=== PATIENT | female | born 1965 | race Caucasian/White ===

== ENCOUNTER 2023-03-19 07:59 | Outpatient (OUT) | payer OTHER, SELFPAY ==
--- NOTE | 2023-03-19 08:49 | US_ITS ---
[address] [address] Patient Name: FANG OBRIEN MRN: [id number] date: 1965 Sex: F Assigned Patient Location: CARD Current Patient Location: CARD Accession/Order Number: [id number] Exam Date: 03/19/2023 09:02 Report Date: 03/19/2023 10:47 At the request of: HORACIO PARKS Procedure: US carotid duplex BI EXAMINATION: US carotid duplex BI HISTORY: Paresthesia R20.2 COMPARISON: No relevant comparison available. TECHNIQUE: Duplex Doppler ultrasound analysis of carotid and vertebral arteries. . Bilateral carotid arterial duplex examination was performed using B-mode, color flow and spectral analysis. Carotid stenosis is reported according to validated velocity parameters, similar to NASCET criteria. FINDINGS: RIGHT CAROTID ARTERY: No visible stenosis or significant plaque. RIGHT VERTEBRAL: Antegrade flow. Subclavian: PSV: 111.6 cm/s EDV: 0.0 cm/s CCA: Prox: PSV: 72.1 cm/s EDV: 13.0 cm/s Mid: PSV: 73.2 cm/s EDV: 18.9 cm/s Distal: PSV: 66.8 cm/s EDV: 20.2 cm/s BULB: PSV: 73.2 cm/s EDV: 18.9 cm/s ICA: Prox: PSV: 73.2 cm/s EDV: 20.2 cm/s Mid: PSV: 131.5 cm/s EDV: 53.5 cm/s Distal: PSV: 68.8 cm/s EDV: 23.6 cm/s ECA: PSV: 106.4 cm/s EDV: 16.0 cm/s VERTEBRAL: PSV: 58.4 cm/s EDV: 22.6 cm/s ICA/CCA ratio: PSV: 2.0 EDV: 2.6 LEFT CAROTID ARTERY: No visible stenosis or significant plaque. LEFT VERTEBRAL: Antegrade flow. Subclavian: PSV: 183.6 cm/s EDV: 0.0 cm/s CCA: Prox: PSV: 87.1 cm/s EDV: 20.8 cm/s Mid: PSV: 72.5 cm/s EDV: 17.6 cm/s Distal: PSV: 90.3 cm/s EDV: 25.7 cm/s BULB: PSV: 78.9 cm/s EDV: 19.2 cm/s ICA: Prox: PSV: 64.4 cm/s EDV: 20.8 cm/s Mid: PSV: 98.3 cm/s EDV: 37.0 cm/s Distal: PSV: 88.6 cm/s EDV: 35.4 cm/s ECA: PSV: 73.5 cm/s EDV: 13.1 cm/s VERTEBRAL: PSV: 34.1 cm/s EDV: 9.2 cm/s ICA/CCA ratio: PSV: 1.1 EDV: 1.4 IMPRESSION: 1. 0-49% flow stenosis within the right and left carotid arteries. 2. No significant atherosclerotic disease. Spectral Doppler US Thresholds Stenosis (%) PSV (cm/sec) VICA/VCCA 0-49 <150 <2.5 50-69 150-225 2.5-4.0 >70 >225 >4.0 Electronically authenticated by: CHARLIE BAE Date: 03/19/2023 10:47
--- NOTE | 2023-03-19 08:53 | CA_ITS ---
Patient: FANG OBRIEN Exam Date: 03/19/2023 : 1965 Gender:F Ordering : DR HORACIO PARKS . Admission #: [id number] Family : Order #: [id number] CLICK HERE TO VIEW EXAM ECHOCARDIOGRAM REPORT PROCEDURE: CA ECHO DOPPLER COMPLETE INDICATIONS: Paresthesia COMPARISON: None. DESCRIPTION: COMPLETE ECHOCARDIOGRAM Real-time transthoracic echocardiography with 2D, M-mode, spectral and color flow Doppler performed. QUALITY: Technical quality was good. LEFT VENTRICLE: Normal chamber size. Thickened septal wall. Normal systolic function. LV EF: Normal left ventricular ejection fraction, (55%). DIASTOLIC: Normal diastolic function. ATRIAL SEPTUM: Visually appears intact. LEFT ATRIUM: Normal chamber size. RIGHT ATRIUM: Normal chamber size. RIGHT VENTRICLE: Normal chamber size. Normal right ventricular systolic function. TRICUSPID VALVE: Normal mobility and thickness. No stenosis with trivial regurgitation. No evidence of pulmonary hypertension. RVSP 24 mmHg MITRAL VALVE: Normal mobility and thickness. No evidence of mitral valve stenosis. There is no mitral annular calcification. Trivial mitral regurgitation. AORTIC VALVE: Normal trileaflet appearance. No visible sclerosis. Normal leaflet mobility. No evidence of aortic valve stenosis. No aortic regurgitation. AORTIC ROOT: Normal diameter and appearance. PULMONIC VALVE: Normal thickness and mobility. No stenosis. Trivial regurgitation. PERICARDIUM: No evidence of pericardial effusion. IVC: Collapses with inspirations. PLEURA: CONCLUSION: 1. Normal ventricular systolic function. LVEF is 55%. 2. Normal diastolic function. 3. No significant valvular dysfunction. 4. Normal right-sided pressures. Adult Echocardiography Procedure Report Left Ventricle LVEDD (3.7 - 5.6 cm): 4.41 cm, 4.44 cm LVESD (2.2 - 4.0 cm): 2.74 cm LVIVS thickness (0.6 - 1.2 cm): 1.04 cm, 1.06 cm LVPW thickness (0.5 - 1.0 cm): 0.86 cm e': 0.13 m/s E - e': 5.78 LVOT Max Gradient: 4.97 mm[Hg] LVOT Area (cm2): 1.11 m/s Peak Velocity (LVOT): 1.11 m/s LVOT Diameter 2.10 cm Left Atrium LA Volume Index (2D A2C): 22.68 ml/m2 Left Atrium Systolic Dimension: 3.48 cm Mitral Valve MV E to A Ratio: 1.53, 1.34 Mitral Valve A-Wave Peak Velocity: 0.51 m/s Mitral Valve E-Wave Peak Velocity: 0.74 m/s Right Ventricle Aorta AO Root Diam: 3.41 cm Ascending Ao Diam: 3.09 cm Aortic Valve AoV Area (Peak Sarwat): 3.51 cm2, 3.51 cm2 Peak Velocity(Antegrade Flow): 1.10 m/s Peak Gradient(Antegrade Flow): 4.85 mm[Hg] Tricuspid Valve Peak Velocity (Regurgitant Flow): 2.26 m/s, 2.29 m/s Pulmonic Valve Peak Velocity: 0.96 m/s Peak Gradient: 3.67 mm[Hg], 3.67 mm[Hg] Right Atrium Right Atrium Systolic Pressure: 33.29 ml, 33.29 ml Dictated by: Yonas Zavala M.D. on 03/20/2023 at 18:35 Approved by: Yonas Zavala M.D. on 03/20/2023 at 18:37
--- NOTE | 2023-03-19 09:30 | MR_ITS ---
The [address] [address] Patient Name: FANG OBRIEN MRN: [id number] date: 1965 Sex: F Assigned Patient Location: CARD Current Patient Location: CARD Accession/Order Number: [id number] Exam Date: 03/19/2023 09:30 Report Date: 03/19/2023 17:17 At the request of: HORACIO PARKS Procedure: MR head/brain wo/w con EXAM: MR head/brain wo/w con HISTORY: Paresthesia R20.2 COMPARISON: None. TECHNIQUE: Multiplanar, multisequence MR imaging of the head was performed prior to and following administration of 16 mL Dotarem contrast intravenously. FINDINGS: No restricted diffusion. No acute hemorrhage, mass effect, midline shift or extra-axial fluid collection. No ventriculomegaly. Expected flow voids are noted within the intracranial internal carotid, vertebral and basilar arteries. The cerebellopontine angles and internal auditory canals are unremarkable. The pituitary gland and midline structures are unremarkable. Bone marrow signal is within normal limits. The orbits and globes are unremarkable. Expected signal voids are seen within the paranasal sinuses and mastoid air cells. There is a solitary punctate focus of increased FLAIR signal within the inferior left frontal subcortical white matter. No periventricular or subcortical white matter signal abnormality. No abnormal enhancement. IMPRESSION: 1. Solitary punctate focus of increased FLAIR signal within the inferior left frontal subcortical white matter, compatible with small vessel ischemic changes. No periventricular white matter signal abnormalities or abnormal enhancement to suggest a demyelinating disorder. 2. No acute infarct or mass effect. Electronically authenticated by: BARBARA CORREIA Date: 03/19/2023 17:17
== END 2023-03-19 08:00 | disposition home or self-care (01) ==
LOC: CARD 07:59
PROVIDERS: PCP Family Medicine; Visit Provider Family Medicine
DX: R20.2 Paresthesia of skin (principal); Z82.0 Family history of epilepsy and other diseases of the nervous system; G93.9 Disorder of brain, unspecified; I65.23 Occlusion and stenosis of bilateral carotid arteries
CPT/HCPCS: 70553; 93306; 93880; A9575

== ENCOUNTER 2023-04-30 09:04 | Outpatient (OUT) | payer OTHER, SELFPAY ==
--- NOTE | 2023-04-30 09:11 | MR_ITS ---
The [address] [address] Patient Name: FANG OBRIEN MRN: [facility]:[id number] date: 1965 Sex: F Assigned Patient Location: MRI Current Patient Location: MRI Accession/Order Number: [id number] Exam Date: 04/30/2023 09:50 Report Date: 04/30/2023 12:53 At the request of: HORACIO PARKS Procedure: MR cervical spine wo/w con EXAM: MR cervical spine wo/w con, MR thoracic spine wo con HISTORY: Paresthesia R20.2 COMPARISON: None Technique: Sagittal T1-weighted, sagittal T2-weighted, sagittal diffusion weighted, axial T2-weighted, and axial T2* gradient echo images of the cervical spine were obtained without intravenous contrast. Following intravenous administration of gadolinium, axial and sagittal T1-weighted images with fat saturation were also obtained. Sagittal T2 and T1-weighted as well as STIR images and axial T1 and T2-weighted images of the thoracic spine performed without IV contrast. Contrast: 16 cc Dotarem for the cervical spine Findings: There is reversal of the cervical lordosis. Trace, grade 1 retrolisthesis of C6 seen on C7. There is significant disc height narrowing throughout the cervical spine. There is normal signal within and normal contour of the cervical spinal cord. There is no abnormal contrast enhancement within the cervical spinal cord, thecal sac or vertebral column. The findings on a level by level basis are as follows: C2-3: No spinal canal or neural foraminal narrowing. Spinal canal measures 11 mm in diameter. C3-4: Uncovertebral arthropathy with moderate bilateral neural foraminal stenosis. Disc bulging with slight spinal canal stenosis, that measures 9.8 mm in diameter. C4-5: Uncovertebral and facet arthropathy with disc bulge. Severe right and moderate left neural foraminal stenosis. Mild spinal canal stenosis, measuring 8.5 mm in diameter. C5-6: Uncovertebral and facet arthropathy, with eccentric right disc bulge and severe right with moderate left neural foraminal stenosis. Spinal canal stenosis is moderate measuring 6.6 mm in diameter. C6-7: Uncovertebral arthropathy with moderate bilateral neural foraminal stenosis and mild spinal canal stenosis measuring 7.3 mm in diameter. C7-T1: No spinal canal or neural foraminal narrowing. No abnormality of the paraspinous soft tissues. Thoracic spine, unenhanced MR images performed, without utilized fracture or subluxation. There is straightening of the kyphotic curve. On the right at T1-2 there is a 6 mm Tarlov/perineural cyst in the extraforaminal zone. On the right at T7-8, there is a small meningeal outpouching in the neural foramen, extending a length of 6 mm. Minimal multilevel marginal osteophytes throughout the vertebral bodies. Otherwise no significant neural foraminal or spinal canal stenosis. MR/MR cervical spine wo/w con Impression: 1. No abnormal enhancement in the spinal cord, thecal sac or cervical vertebrae. 2. Multilevel degenerative changes of the cervical spine, as above, most pronounced at C5-6 where there is moderate spinal canal stenosis, and there are severe degrees of neural foraminal stenosis, especially on the right at C4-5 and C5-6. 3. 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 Otherwise no substantial neural foraminal or spinal canal stenosis throughout the thoracic spine. Electronically authenticated by: RAISSA MELTON Date: 04/30/2023 12:53
--- NOTE | 2023-04-30 09:50 | MR_ITS ---
The [address] [address] Patient Name: FANG OBRIEN MRN: [facility]:[id number] date: 1965 Sex: F Assigned Patient Location: MRI Current Patient Location: MRI Accession/Order Number: [id number] Exam Date: 04/30/2023 09:50 Report Date: 04/30/2023 12:53 At the request of: HORACIO PARKS Procedure: MR thoracic spine wo con EXAM: MR cervical spine wo/w con, MR thoracic spine wo con HISTORY: Paresthesia R20.2 COMPARISON: None Technique: Sagittal T1-weighted, sagittal T2-weighted, sagittal diffusion weighted, axial T2-weighted, and axial T2* gradient echo images of the cervical spine were obtained without intravenous contrast. Following intravenous administration of gadolinium, axial and sagittal T1-weighted images with fat saturation were also obtained. Sagittal T2 and T1-weighted as well as STIR images and axial T1 and T2-weighted images of the thoracic spine performed without IV contrast. Contrast: 16 cc Dotarem for the cervical spine Findings: There is reversal of the cervical lordosis. Trace, grade 1 retrolisthesis of C6 seen on C7. There is significant disc height narrowing throughout the cervical spine. There is normal signal within and normal contour of the cervical spinal cord. There is no abnormal contrast enhancement within the cervical spinal cord, thecal sac or vertebral column. The findings on a level by level basis are as follows: C2-3: No spinal canal or neural foraminal narrowing. Spinal canal measures 11 mm in diameter. C3-4: Uncovertebral arthropathy with moderate bilateral neural foraminal stenosis. Disc bulging with slight spinal canal stenosis, that measures 9.8 mm in diameter. C4-5: Uncovertebral and facet arthropathy with disc bulge. Severe right and moderate left neural foraminal stenosis. Mild spinal canal stenosis, measuring 8.5 mm in diameter. C5-6: Uncovertebral and facet arthropathy, with eccentric right disc bulge and severe right with moderate left neural foraminal stenosis. Spinal canal stenosis is moderate measuring 6.6 mm in diameter. C6-7: Uncovertebral arthropathy with moderate bilateral neural foraminal stenosis and mild spinal canal stenosis measuring 7.3 mm in diameter. C7-T1: No spinal canal or neural foraminal narrowing. No abnormality of the paraspinous soft tissues. Thoracic spine, unenhanced MR images performed, without utilized fracture or subluxation. There is straightening of the kyphotic curve. On the right at T1-2 there is a 6 mm Tarlov/perineural cyst in the extraforaminal zone. On the right at T7-8, there is a small meningeal outpouching in the neural foramen, extending a length of 6 mm. Minimal multilevel marginal osteophytes throughout the vertebral bodies. Otherwise no significant neural foraminal or spinal canal stenosis. MR/MR thoracic spine wo con Impression: 1. No abnormal enhancement in the spinal cord, thecal sac or cervical vertebrae. 2. Multilevel degenerative changes of the cervical spine, as above, most pronounced at C5-6 where there is moderate spinal canal stenosis, and there are severe degrees of neural foraminal stenosis, especially on the right at C4-5 and C5-6. 3. 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 Otherwise no substantial neural foraminal or spinal canal stenosis throughout the thoracic spine. Electronically authenticated by: RAISSA MELTON Date: 04/30/2023 12:53
== END 2023-04-30 09:05 | disposition home or self-care (01) ==
PROVIDERS: PCP Family Medicine; Visit Provider Family Medicine
DX: R20.2 Paresthesia of skin (principal); M48.02 Spinal stenosis, cervical region
CPT/HCPCS: 72146; 72156; A9575

== ENCOUNTER 2023-06-15 07:51 | Outpatient (OUT) | payer OTHER, SELFPAY ==
--- NOTE | 2023-06-15 07:57 | MM_ITS ---
Patient: FANG OBRIEN Exam Date: 06/15/2023 : 1965 Gender:F Ordering : DR TRICIA VELASQUEZ . Admission #: [id number] Family : DR All San . Order #: [id number] CLICK HERE TO VIEW EXAM RADIOLOGY REPORT PROCEDURE: MM TOMOSYNTHESIS SCREENING BI COMPARISON: MG MAMM SCREEN MIGUEL W CAD, 06/06/2021. MG MAMM SCREEN 3D MIGUEL CAD, 06/13/2022. INDICATIONS: Screening Calculator Name NCI Breast Cancer Risk Assessment Tool 5 Year Breast Cancer Risk 1.20% Lifetime Breast Cancer Risk 8.30% Personal Breast Cancer No Personal Ovarian Cancer No Treatments None Family Cancers None LOCATION: [facility] BREAST COMPOSITION: Heterogeneously dense,which may obscure small masses. FINDINGS: DIAGNOSTIC CATEGORY 2--BENIGN FINDING. NO CHANGE FROM COMPARISON. Scattered benign-appearing nodules are present. Scattered benign-appearing calcifications are present. Scattered benign-appearing lymph nodes are present. RIGHT BREAST: No significant suspicious finding. LEFT BREAST: No significant suspicious finding. RECOMMENDATIONS: ROUTINE MAMMOGRAM AND CLINICAL EVALUATION IN 12 MONTHS. PLEASE NOTE: A NORMAL MAMMOGRAM DOES NOT EXCLUDE THE POSSIBILITY OF BREAST CANCER. A CLINICALLY SUSPICIOUS PALPABLE LUMP SHOULD BE BIOPSIED. Dictated by: Arturo Martinez MD on 06/15/2023 at 12:52 Approved by: Arturo Martinez MD on 06/15/2023 at 12:53
== END 2023-06-15 07:52 | disposition home or self-care (01) ==
LOC: MAMMO 07:51
PROVIDERS: PCP Family Medicine; Visit Provider Obstetrics & Gynecology
DX: Z12.31 Encounter for screening mammogram for malignant neoplasm of breast (principal)
CPT/HCPCS: 77063; 77067

== ENCOUNTER 2023-06-22 20:46 | Outpatient (REF) | payer OTHER, SELFPAY ==
[2023-06-27 07:09] LABS: Age Gdln ACOG Testing Note (.); HPV Aptima Negative (Negative); IGP, Aptima HPV, rfx 16/18,45 Note (.)
== END 2023-06-22 20:47 | disposition home or self-care (01) ==
LOC: LAB 20:46
PROVIDERS: PCP Family Medicine; Visit Provider Obstetrics & Gynecology
DX: Z12.4 Encounter for screening for malignant neoplasm of cervix (principal)
CPT/HCPCS: 87624; G0145

== ENCOUNTER 2023-07-15 07:01 | Outpatient (OUT) | payer OTHER, SELFPAY ==
--- NOTE | 2023-07-15 | XR_ITS ---
The [address] [address] Patient Name: FANG OBRIEN MRN: [facility]:[id number] date: 1965 Sex: F Assigned Patient Location: MRI Current Patient Location: MRI Accession/Order Number: [id number] Exam Date: 07/15/2023 08:10 Report Date: 07/15/2023 09:44 At the request of: NON-STAFF PHYSICIAN Procedure: XR lumbar spine min 4V EXAMINATION: XR lumbar spine min 4V HISTORY: Spinal stenosis of lumbar region M48.062 COMPARISON: No relevant comparison available. FINDINGS: BONES: Neutral projection demonstrates normal alignment with no acute fracture or spondylolisthesis. Moderate diffuse degenerative spondylosis and facet arthropathy. No transient spondylolisthesis with flexion or extension DISC SPACES: Moderate to severe multilevel disc space narrowing most significant L4-5 PARASPINOUS: Negative. No paraspinous abnormality is seen. OTHER: Negative. XR/XR lumbar spine min 4V IMPRESSION: Moderate to severe degenerative changes No dynamic instability Electronically authenticated by: BARBARA LOWERY Date: 07/15/2023 09:44
--- NOTE | 2023-07-15 07:16 | MR_ITS ---
[address] [address] Patient Name: FANG OBRIEN MRN: [id number] date: 1965 Sex: F Assigned Patient Location: MRI Current Patient Location: MRI Accession/Order Number: [id number] Exam Date: 07/15/2023 07:16 Report Date: 07/15/2023 08:27 At the request of: NON-STAFF PHYSICIAN Procedure: MR lumbar spine wo con EXAMINATION: MR lumbar spine wo con HISTORY: spinal stenosis of lumbar region with neurogenic claudicatio COMPARISON: No relevant comparison available. TECHNIQUE: A variety of imaging planes and parameters were utilized for visualization of suspected pathology. FINDINGS: For the purposes of numbering, sagittal T2 image # 8 extends from the T11 vertebral body superiorly to the S2-S3 level inferiorly. PARASPINAL AREA: Normal with no visible mass. BONES: Mild grade 1 retrolisthesis L2-L3, L3-L4 and L4-5. Moderate degenerative spondylosis. Area of signal abnormality anterior inferior L2 and anterior superior L3 vertebral bodies likely degenerative vein CORD/CAUDA EQUINA: Normal caliber, contour, and signal intensity. DISC LEVELS: 12-L1: No significant disc/facet abnormality, spinal stenosis, or foraminal stenosis. L1-L2: No significant disc/facet abnormality, spinal stenosis, or foraminal stenosis. L2-L3: Moderate disc space narrowing and disc desiccation. Posterior broad-based disc/osteophyte complex. No definite central or foraminal stenosis L3-L4: Mild to moderate disc space narrowing and disc desiccation. Mild diffuse disc/osteophyte complex. No central or foraminal stenosis L4-L5: Severe disc space narrowing with partial fusion. Mild diffuse disc/osteophyte complex. No central or left foraminal stenosis. Moderate narrowing of the right neural foramen L5-S1: No significant disc/facet abnormality, spinal stenosis, or foraminal stenosis. MR/MR lumbar spine wo con IMPRESSION: Moderate right foraminal stenosis at L4-L5 Electronically authenticated by: BARBARA LOWERY Date: 07/15/2023 08:27
--- NOTE | 2023-07-15 07:16 | XR_ITS ---
The [address] [address] Patient Name: FANG OBRIEN MRN: [id number] date: 1965 Sex: F Assigned Patient Location: MRI Current Patient Location: MRI Accession/Order Number: [id number] Exam Date: 07/15/2023 08:10 Report Date: 07/15/2023 09:45 At the request of: NON-STAFF PHYSICIAN Procedure: XR cervical spine 5V EXAMINATION: XR cervical spine 5V HISTORY: spinal stenosis in cervical region COMPARISON: No relevant comparison available. FINDINGS: BONES: Neutral projection demonstrates loss of normal cervical lordosis. Moderate diffuse degenerative spondylosis and facet osteoarthropathy most significant C5-C7 DISC SPACES: Moderate multilevel disc space narrowing most significant C5-C7 PARASPINOUS: Negative. No paraspinous abnormality is seen. OTHER: No transient anterolisthesis with flexion or extension XR/XR cervical spine 5V IMPRESSION: Moderate degenerative changes with loss of cervical lordosis No dynamic instability Electronically authenticated by: BARBARA LOWERY Date: 07/15/2023 09:45
== END 2023-07-15 07:02 | disposition home or self-care (01) ==
LOC: MRI 07:01
PROVIDERS: PCP Family Medicine
DX: M48.02 Spinal stenosis, cervical region (principal); M48.062 Spinal stenosis, lumbar region with neurogenic claudication
CPT/HCPCS: 72050; 72110; 72148

== ENCOUNTER 2024-06-22 08:01 | Outpatient (OUT) | payer SELFPAY ==
--- OUTSIDE RECORDS SUMMARY | 2024-06-22 08:05 | XMS_ITS | CCD ---
Author Organization [facility] Care Team Providers Care Vest Baster Name Role Phone Horacio San Primary Care Physician RON ., DR CLARKE Consulting Unavailable RON ., DR CLARKE Attending Unavailable RON ., DR CLARKE Admitting Unavailable HOY ., DR LEONARD Primary Care Unavailable HOY ., DR LEONARD Attending Unavailable HOY ., DR LEONARD Consulting Unavailable HOY ., DR LEONARD Primary Care Unavailable HOY ., DR LEONARD Admitting Unavailable HOY ., DR LEONARD Admitting Unavailable HOY ., DR LEONARD Attending Unavailable HOY ., DR LEONARD Consulting Unavailable HOY ., DR LEONARD Primary Care Unavailable NILL ., DR REYES Admitting Unavailable HOY ., DR LEONARD Primary Care Unavailable NILL ., DR REYES Attending Unavailable NILL ., DR REYES Consulting Unavailable RON ., DR CLARKE Admitting Unavailable IRVING, DR BARBARA Lloyd Consulting Unavailable RON ., DR CLARKE Attending Unavailable HOY ., DR LEONARD Primary Care Unavailable RON ., DR CLARKE Consulting Unavailable Barbara Atkins Consulting Unavailable RON ., DR CLARKE Consulting Unavailable RON ., DR CLARKE Admitting Unavailable RON ., DR CLARKE Attending Unavailable HOY ., DR LEONARD Primary Care Unavailable NILL, Eric R Attending Unavailable NILL, Eric Candelaria Attending Unavailable NILL, Eric Candelaria Attending Unavailable Allergies Allergy Classification Reported Allergen(s) Allergy Type Date of Onset Reaction(s) Facility (3 sources) Penicillin; 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: [penicillin] Drug Allergy Itching (finding) General Surgery [place] Medications Current Medications Medication Drug Class(es) Dates Sig (Normalized) Sig (Original) aspirin 81 mg delayed release oral tablet (1 source) Platelet Aggregation Inhibitor, Nonsteroidal Anti-inflammatory Drug Start: 10-28-2022 take 1 tablet by mouth once daily aspirin 81 mg Oral EC Tab 81 mg = 1 tab(s), Oral, Daily, Refills(s) 0 Start Date: 10/28/22 Status: Ordered diclofenac sodium 75 mg delayed release oral tablet (1 source) Nonsteroidal Anti-inflammatory Drug Start: 10-22-2022 take 1 tablet by mouth twice daily diclofenac sodium 75 mg Oral EC Tab 75 mg = 1 tab(s), Oral, BID, Refills(s) 0 Start Date: 10/22/22 Status: Ordered Multi Vitamins oral tablet (1 source) Start: 10-28-2022 take 1 tablet by mouth once daily Multi Vitamins oral tablet 1 tab(s), Oral, Daily, Refill(s) 0 Start Date: 10/28/22 Status: Ordered Problems Active Problems Problem Classification Problem Date Documented Da te Episodic/Chronic Abdominal hernia (1 source) Umbilical hernia 10-22-2022 Episodic Anxiety disorders (2 sources) Anxiety; 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: [Anxiety disorder, unspecified] Onset: 11-24-2022 10-22-2022 Chronic Deficiency and other anemia (1 source) Anemia, unspecified; 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: [ANEMIA UNSPECIFIED] Onset: 12-04-2022 Episodic Diabetes mellitus without complication (1 source) Hyperglycemia, unspecified; 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: [HYPERGLYCEMIA UNSPECIFIED] Onset: 12-04-2022 Episodic Malaise and fatigue (4 sources) Other fatigue; 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: [OTHER FATIGUE] Onset: 10-13-2022 Episodic Mood disorders (1 source) Depressive disorder 10-22-2022 Chronic Mood disorders (1 source) Mood disorders; 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: [DEPRESSION UNSPECIFIED] Onset: 11-24-2022 Osteoporosis (1 source) Age-related osteoporosis without current pathological fracture; 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: [AGE-REL OSTEOPOR W/O CURR PATH FX] Onset: 06-16-2022 Chronic Other aftercare (1 source) 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; 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: [CUSTODIAL CURRENT USE OF ASPIRIN] Onset: 11-24-2022 Episodic Other aftercare (1 source) Other senior care (current) drug therapy; 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: [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] Onset: 11-24-2022 Episodic Other and unspecified benign neoplasm (5 sources) Benign lipomatous neoplasm of skin and subcutaneous tissue of right leg; 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: [Benign lipomatous neoplasm of skin and/or subcutaneous tissue of right lower limb] Onset: 10-28-2022 Episodic Other and unspecified benign neoplasm (1 source) Lipoma of thigh 10-28-2022 Episodic Other nutritional; endocrine; and metabolic disorders (1 source) Overweight in adulthood with body mass index of 25 or more but less than 30 10-28-2022 Episodic Other nutritional; endocrine; and metabolic disorders (1 source) Overweight; 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: [OVERWEIGHT] Onset: 12-04-2022 Episodic Other screening for suspected conditions (not mental disorders or infectious disease) (12 sources) Encounter for screening for malignant neoplasm of rectum; 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: [Encounter for screening for malignant neoplasm of cervix] Onset: 06-13-2022 Episodic Residual codes; unclassified (1 source) Acquired absence of both cervix and uterus; 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: [ACQUIRED ABSENCE BOTH CERVIX AND UTERUS] Onset: 11-24-2022 Episodic Unclassified (3 sources) ACUTE CANDIDIASIS VULVA AND VAGINA; 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: [ACUTE CANDIDIASIS VULVA AND VAGINA] Onset: 06-26-2022 Past or Other Problems Problem Classification Problem Date Documented Date Episodic/Chronic Immunizations and screening for infectious disease (1 source) Encounter for screening for human papillomavirus (HPV); 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: [ENC SCREENING HUMAN PAPILLOMAVIRUS] Onset: 06-18-2022 Episodic Residual codes; unclassified (1 source) Asymptomatic menopausal state; 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: [ASYMPTOMATIC MENOPAUSAL STATE] Onset: 06-16-2022 Episodic Unclassified (1 source) ACUTE CANDIDIASIS VULVA AND VAGINA; 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: [ACUTE CANDIDIASIS VULVA AND VAGINA] Onset: 06-25-2022 Results Test Name Value Interpretation Reference Range Facility Ambulatory Visit Summaryon 0 11-26-2022 Ambulatory Visit Summary FANG OBRIEN :1965 Visit Date:11/26/2022 Ambulatory Visit Instructions Your Care Team Attending Physician - LISBETH TERESA, Eric Candelaria Primary Care Physician - Horacio San MD This Is Your Medications List aspirin (aspirin 81 mg Oral EC Tab) diclofenac (diclofenac sodium 75 mg Oral EC Tab) multivitamin (Multi Vitamins oral tablet) Procedures Performed Excision of lipoma (11/19/2022), Abdominal hysterectomy, Colonoscopy, Repair of umbilical hernia, Tonsillectomy and adenoidectomy. Medications What How Much When Instructions Unchanged aspirin (aspirin 81 mg Oral EC Tab) 1 Tablets By Mouth Every day Unchanged diclofenac (diclofenac sodium 75 mg Oral EC Tab) 1 Tablets By Mouth 2 times a day Unchanged multivitamin (Multi Vitamins oral tablet) 1 Tablets By Mouth Every day Allergies penicillin (Itching) Problems Ongoing - Any problem that you are currently receiving treatment for. Anxiety BMI 26.0-26.9,adult Depression Lipoma of right thigh Umbilical hernia Normal [facility] General Surgery Office/Clini c Noteon 11-26-2022 General Surgery Office/Clinic Note Chief Complaint post operative follow up HPI Staff 7 day post operative follow up post excisional biopsy right lateral thigh lipoma. Denies discomfort, no use of pain medication. Denies bleeding, drainage or significant bruising. History of Present Illness 1 week s/p excisional biopsy right lateral thigh lipoma, doing well; mild soreness, no drainage; pathology consistent with lipoma. Review of Systems ROS - Provider Constitutional: no fever, no sweats, no weight loss. Eyes: no glasses, no blurred vision, no visual loss. ENMT: no dentures, no hoarseness, no swallowing difficulties, no hearing loss, no ear infection(s), no nose bleeds. Cardiovascular: normal blood pressure, no chest pain, regular heartbeat, no heart murmur. Respiratory: no shortness of breath, no cough, no asthma, no wheezing. Gastrointestinal: no nausea, no vomiting, no diarrhea, no constipation, no blood in stool, no change in bowel habits, no abdominal pain, no hepatitis. Genitourinary: no kidney stones, no urine infection, no dysuria. Musculoskeletal: no pain, no weakness. Skin: no changing moles, no rash, no skin lumps. Neurologic: no seizures, no epilepsy, no headache. Psychiatric: no emotional or psychiatric problem. Heme/Lymph: no bleeding problems, no anemia, no blood clots, no transfusions. Allergy/Immunologic: no swollen lymph nodes/glands, no IV drug abuse. Other: Additional ROS info: Except as noted in the above Review of Systems and in the History of Present Illness, all other systems have been reviewed and are negative or noncontributory. Physical Exam skin: incision healing well, no erythema or drainage, minimal resolving ecchymosis. Assessment/Plan 1. Lipoma of right thigh (D17.23: Benign lipomatous neoplasm of skin and subcutaneous tissue of right leg) doing well; call with problems/questions. Follow-up No qualifying data available Problem List/Past Medical History Ongoing Anxiety BMI 26.0-26.9,adult Depression Lipoma of right thigh Umbilical hernia Historical No qualifying data Procedure/Surgical History Excision of lipoma (11/19/2022), Abdominal hysterectomy, Colonoscopy, Repair of umbilical hernia, Tonsillectomy and adenoidectomy. Medications aspirin 81 mg Oral EC Tab, 81 mg= 1 tab(s), Oral, Daily diclofenac sodium 75 mg Oral EC Tab, 75 mg= 1 tab(s), Oral, BID Multi Vitamins oral tablet, 1 tab(s), Oral, Daily Allergies penicillin (Itching) Social History Alcohol - Denies Alcohol Use, 10/28/2022 Substance Abuse - Denies Substance Abuse, 10/28/2022 Tobacco Never (less than 100 in lifetime) Tobacco Use:. Never Smokeless Tobacco Use:., 10/28/2022 Family History Heart disease: Father. Multiple sclerosis: Mother and Sister. Immunizations Vaccine Date Status Comments influenza virus vaccine, inactivated 08/08/2022 Recorded SARS-CoV-2 (COVID-19) mRNA-1273 vaccine 08/17/2021 Recorded 2022-10-22: TPV50 SARS-CoV-2 (COVID-19) mRNA-1273 vaccine 12/21/2020 Recorded SARS-CoV-2 (COVID-19) mRNA-1273 vaccine 11/23/2020 Recorded Normal [facility] Comment on above: Result Comment: Elec tronically Signed By: LISBETH TERESA, Eric Fierro\Date and Time Signed: 11/26/22 16:51 EDT Pathology Noteon 11-24-2022 Pathology Note [id number] .00CD:127 Normal [facility] Operative Reporton Operative Report [id number] .00CD:127 Normal [facility] Consent for Procedure/Surger yon 10-29-2022 Consent for Procedure/Surgery [id number] .00CD:127 Normal [facility] Facesheeton 10-29-2022 Facesheet [id number] .00CD:127 Normal [facility] Ambulatory Visit Summaryon 0 10-28-2022 Ambulatory Visit Summary FANG OBRIEN :1965 Visit Date:10/28/2022 Ambulatory Visit Instructions Your Diagnosis Lipoma of right thigh Your Care Team Attending Physician - LISBETH TERESA, Eric Candelaria Primary Care Physician - Horacio San MD This Is Your Medications List Contact prescribing physician if questions or concerns aspirin (aspirin 81 mg Oral EC Tab) diclofenac (diclofenac sodium 75 mg Oral EC Tab) multivitamin (Multi Vitamins oral tablet) Procedures Performed Abdominal hysterectomy, Colonoscopy, Repair of umbilical hernia, Tonsillectomy and adenoidectomy. Discharge Vitals Heart Rate (Peripheral) 70 Respiratory Rate 16 Blood Pressure 122/86 Height 170.18 cm Height 67 in Weight 77.5 kg Weight 170.5 lb BMI 26.76 Medications What How Much When Instructions Unchanged aspirin (aspirin 81 mg Oral EC Tab) 1 Tablets By Mouth Every day Contact prescribing physician if questions or concerns Unchanged diclofenac (diclofenac sodium 75 mg Oral EC Tab) 1 Tablets By Mouth 2 times a day Contact prescribing physician if questions or concerns Unchanged multivitamin (Multi Vitamins oral tablet) 1 Tablets By Mouth Every day Contact prescribing physician if questions or concerns Allergies penicillin (Itching) Problems Ongoing - Any problem that you are currently receiving treatment for. Anxiety BMI 26.0-26.9,adult Depression Lipoma of right thigh Umbilical hernia Normal [facility] Physician Referralon 023 Physician Referral [id number] .[id number]:127 Normal [facility] INSULINon 10-14-2022 Insulin 6.7 uIU/mL Normal 2.6-24.9 [facility] Comment on above: Performed By: #### I NSULIN #### [facility] [address], [place] [address] Dr. Jay MORGAN BLD IMMUNO SCREENon 09-16 OCCULT BLOOD Negative Normal NEGATIVE [facility] Comment on above: Performed By: #### O BSCRN ####[facility] [address] [place] [address]Dr. Jay Sebastian CBC AUTO DIFFon 10-13-2022 BASO # 0.0 103/ul Normal 0.0-0.1 [facility] Comment on above: Performed By: #### C BC ####[facility] [address] [place], [place] [address]Dr. Conniesabas Cortes Basophils/100 WBC (Bld) 1.0 % Normal 0.2-2.0 [facility] Comment on above: Performed By: #### C BC ####[facility] [address] [place], [place] [address]Dr. Jay Cortes EO # 0.1 103/ul Normal 0.0-0.7 [facility] Comment on above: Performed By: #### C BC ####[facility] [address] [place], [place] [address]Dr. Jay Cortes Eosinophils/100 WBC (Bld) 2.3 % Normal 0.9-7.0 [facility] Comment on above: Performed By: #### C BC ####[facility] [address] [place], [place] [address]Dr. Conniesabas Cortes Erythrocyte distribution width (RBC) [Ratio] 12.7 % Normal 11.0-15.0 [facility] Comment on above: Performed By: #### C BC ####[facility] [address] [place], [place] [address]Dr. Jay Cortes Hematocrit (Bld) [Volume fraction] 39.9 % Normal 36.0-48.0 [facility] Comment on above: Performed By: #### C BC ####[facility] [address] [place], [place] [address]Dr. Jay Cortes Hemoglobin (Bld) [Mass/Vol] 13.6 g/dL Normal 12.0-16.0 [facility] Comment on above: Performed By: #### C BC ####[facility] [address] [place], [place] [address]Dr. Jay Cortes IG # 0.01 10e3/ul Normal 0.00-0.03 [facility] Comment on above: Performed By: #### C BC ####[facility] [address] [place] [id number]. Jay Cortes IG % 0.3 % Normal 0.0-0.5 [facility] Comment on above: Performed By: #### C BC ####[facility] [address] [place] [id number]. Jay Cortes LYMPH # 1.4 103/ul Normal 1.2-3.8 [facility] Comment on above: Performed By: #### C BC ####[facility] [address] [place] [id number]. Jay Cortes Lymphocytes/100 WBC (Bld) 34.3 % Normal 20.5-60.0 [facility] Comment on above: Performed By: #### C BC ####[facility] [address] [place] [address]Dr. Jay Cortes MANUAL DIFF REQ NO Normal [facility] Comment on above: Performed By: #### C BC ####[facility] [address] [place] [id number]. Jay Cortes MCH (RBC) [Entitic mass] 30.6 pg Normal 26.7-34.0 [facility] Comment on above: Performed By: #### C BC ####[facility] [address] [place] [id number]. Jay Cortes MCHC (RBC) [Mass/Vol] 34.1 g/dL Normal 29.9-35.2 [facility] Comment on above: Performed By: #### C BC ####[facility] [address] [place] [id number]. Jay Cortes MCV (RBC) [Entitic vol] 89.7 fL Normal 81.0-99.0 [facility] Comment on above: Performed By: #### C BC ####[facility] [address] [place] [id number]. Jay Sebastian MONO # 0.3 103/ul Normal 0.3-0.8 [facility] Comment on above: Performed By: #### C BC ####[facility] [address] [place] [id number]. Jay Cortes Monocytes/100 WBC (Bld) 6.3 % Normal 1.7-12.0 [facility] Comment on above: Performed By: #### C BC ####[facility] [address] [place] [phone]. Jay Cortes NEUT # 2.2 103/ul Normal 1.4-6.5 [facility] Comment on above: Performed By: #### C BC ####[facility] [address] [place] [id number]. Jay Cortes Neutrophils/100 WBC (Bld) 55.8 % Normal 43.0-75.0 [facility] Comment on above: Performed By: #### C BC ####[facility] [address] [place] [phone]. Jay Cortes Platelet mean volume (Bld) [Entitic vol] 10.0 fL Normal 9.5-13.5 [facility] Comment on above: Performed By: #### C BC ####[facility] [address] [place] [phone]. Jay Cortes PLT 265 103/ul Normal 150-450 [facility] Comment on above: Performed By: #### C BC ####[facility] [address] [place] [phone]. Jay Cotres RBC 4.45 106/ul Normal 4.20-5.40 [facility] Comment on above: Performed By: #### C BC ####[facility] [address] [place], [place] [address]Dr. Jay Cortes WBC 4.0 103/ul Normal 4.0-11.0 [facility] Comment on above: Performed By: #### C BC ####[facility] [address] [place], [place] [address]Dr. Jay Cortes FREE THYROXINE INDEX T7on FTI 2.49 Normal 1.30-4.50 [facility] Comment on above: Performed By: #### C MP, LIPID, TSH, T7 #### [facility] [address], [place] [address] Dr. Jay Cortes T3U 35.0 % Normal 30.0-39.0 [facility] Comment on above: Performed By: #### C MP, LIPID, TSH, T7 #### [facility] [address] [place] [address] [address] Jay Cortes T4 [Mass/Vol] 7.10 ug/dL Normal 4.80-13.90 [facility] Comment on above: Performed By: #### C MP, LIPID, TSH, T7 #### [facility] [address] [place] [address] [address] Jay Cortes GLYCOHEMOGLOBIN A1Con 2022 ADA RECOMMENDATION SEE BELOW Normal [facility] Comment on above: Result Comment: ADA RECOMMENDED LIMIT 4.0 - 6.0 ADA THERAPEUTIC TARGET < 7.0 ACTION SUGGESTED > 7.0 Performed By: #### A 1C #### [facility] [address] [address] [address] Jay Cortes Glucose [Mass/Vol] 105 mg/dL Normal [facility] Comment on above: Performed By: #### A 1C #### [facility] [address] [address] [address] Jay Cortes HbA1c (Bld) [Mass fraction] 5.3 % Normal 4.5-6.2 [facility] Comment on above: Performed By: #### A 1C #### [facility] [address] [address] [address] Jay Cortes IRONon 10-13-2022 Iron [Mass/Vol] 90.0 ug/dL Normal 50.0-170.0 [facility] Comment on above: Performed By: #### I ALANA ####[facility] [address] [place] [address]Dr. Jay Cortes LIPID PROFILEon 10-13-2022 CHOL-HDL RATIO NORM SEE BELOW Normal [facility] Comment on above: Result Comment: 3.3 - 4.4 LOW RISK 4.4 - 7.1 AVERAGE RISK 7.1 - 11.0 MODERATE RISK >11.0 HIGH RISK Performed By: #### C MP, LIPID, TSH, T7 #### [facility] [address] [address] [address] Jay Cortes Cholesterol [Mass/Vol] 175 mg/dL Normal <=200 [facility] Comment on above: Performed By: #### C MP, LIPID, TSH, T7 #### [facility] [address] [address] [address] Jay Cortes Cholesterol in HDL [Mass/Vol] 72 mg/dL Critically high 40-60 [facility] Comment on above: Performed By: #### C MP, LIPID, TSH, T7 #### [facility] [address] [address] [address] Jay Cortes Cholesterol in LDL [Mass/Vol] 88.0 mg/dL Normal [facility] Comment on above: Performed By: #### C MP, LIPID, TSH, T7 #### [facility] [address] [address] [address] Jay Cortes Cholesterol.total/Cho lesterol in HDL [Mass ratio] 2.4 {ratio} Normal [facility] Comment on above: Performed By: #### C MP, LIPID, TSH, T7 #### [facility] [address] [address] [address] Jay Cortes HDL NORMAL > or = 60 mg/dl - LO W CARDIOVASCULAR RISK <40 mg/dl - HIGH CARDIOVASCULAR RISK Normal [facility] Comment on above: Performed By: #### C MP, LIPID, TSH, T7 #### [facility] [address] [address] [address] Jay Cortes LDL CALC NORMAL SEE BELOW Normal [facility] Comment on above: Result Comment: <100 mg/dl OPTIMAL 100 - 129 mg/dl NEAR OR ABOVE OPTIMAL 130 - 159 mg/dl BORDERLINE HIGH 160 - 189 mg/dl HIGH >190 mg/dl VERY HIGH Performed By: #### C MP, LIPID, TSH, T7 #### [facility] [address] [address] [address] Jay Cortes Triglyceride [Mass/Vol] 75 mg/dL Normal <=150 [facility] Comment on above: Performed By: #### C MP, LIPID, TSH, T7 #### [facility] [address] [place] [address] Dr. Jay Cortes VLDL CALC 15.0 mg/dL Normal [facility] Comment on above: Performed By: #### C MP, LIPID, TSH, T7 #### [facility] [address] [place] [address] Dr. Jay Cortes PROF 14(COMP METB)on 023 Albumin [Mass/Vol] 4.1 g/dL Normal 3.4-5.0 [facility] Comment on above: Performed By: #### C MP, LIPID, TSH, T7 #### [facility] [address] [place] [address] Dr. Jay Cortes Albumin/Globulin [Mass ratio] 1.2 {ratio} Normal [facility] Comment on above: Performed By: #### C MP, LIPID, TSH, T7 #### [facility] [address] [place] [address] Dr. Jay Cortes ALP [Catalytic activity/Vol] 51 U/L Normal 46-116 [facility] Comment on above: Performed By: #### C MP, LIPID, TSH, T7 #### [facility] [address] [place] [address] Dr. Jay Cortes ALT [Catalytic activity/Vol] 23 U/L Normal 14-59 [facility] Comment on above: Performed By: #### C MP, LIPID, TSH, T7 #### [facility] [address] [place] [address] Dr. Jay Cortes Anion gap [Moles/Vol] 11.4 mmol/L Normal [facility] Comment on above: Performed By: #### C MP, LIPID, TSH, T7 #### [facility] [address] [place] [address] Dr. Jay Cortes AST [Catalytic activity/Vol] 12 U/L Critically low 15-37 [facility] Comment on above: Performed By: #### C MP, LIPID, TSH, T7 #### [facility] [address] [place] [address] Dr. Jay Cortes Bilirubin [Mass/Vol] 0.3 mg/dL Normal 0.2-1.0 [facility] Comment on above: Performed By: #### C MP, LIPID, TSH, T7 #### [facility] [address] [place] [address] [address] Jay Cortes Calcium [Mass/Vol] 8.9 mg/dL Normal 8.5-10.1 [facility] Comment on above: Performed By: #### C MP, LIPID, TSH, T7 #### [facility] [address] [place] [address] Dr. Jay Cortes Chloride [Moles/Vol] 104 mmol/L Normal 98-107 [facility] Comment on above: Performed By: #### C MP, LIPID, TSH, T7 #### [facility] [address] [place] [address] Dr. Jay Cortes CO2 [Moles/Vol] 29.5 mmol/L Normal 21.0-32.0 [facility] Comment on above: Performed By: #### C MP, LIPID, TSH, T7 #### [facility] [address] [place] [address] Dr. Jay Cortes Creatinine [Mass/Vol] 0.60 mg/dL Normal 0.55-1.02 [facility] Comment on above: Performed By: #### C MP, LIPID, TSH, T7 #### [facility] [address] [place] [address] Dr. Jay Cortes EGFR-AF SAO TOMEAN >60 Normal >=60 [facility] Comment on above: Performed By: #### C MP, LIPID, TSH, T7 #### [facility] [address] [place] [address] Dr. Jay Cortes EGFR-NON AF SAO TOMEAN >60 Normal >=60 [facility] Comment on above: Performed By: #### C MP, LIPID, TSH, T7 #### [facility] [address] [place] [address] Dr. Jay Cortes Globulin (S) [Mass/Vol] 3.3 g/dL Normal [facility] Comment on above: Performed By: #### C MP, LIPID, TSH, T7 #### [facility] [address] [address] [address] Jay Cortes Glucose [Mass/Vol] 103 mg/dL Normal 74-[address] [facility] Comment on above: Performed By: #### C MP, LIPID, TSH, T7 #### [facility] [address] [address] [address] Jay Cortes Potassium [Moles/Vol] 3.9 mmol/L Normal 3.5-5.1 [facility] Comment on above: Performed By: #### C MP, LIPID, TSH, T7 #### [facility] [address] [place] [address] Dr. Jay Cortes Protein [Mass/Vol] 7.4 g/dL Normal 6.4-8.[address] [facility] Comment on above: Performed By: #### C MP, LIPID, TSH, T7 #### [facility] [address] [place] [address] Dr. Jay Cortes Sodium [Moles/Vol] 141 mmol/L Normal 136-[address] [facility] Comment on above: Performed By: #### C MP, LIPID, TSH, T7 #### [facility] [address] [address] [address] Jay Cortes Urea nitrogen [Mass/Vol] 15.0 mg/dL Normal 7.0-18.0 [facility] Comment on above: Performed By: #### C MP, LIPID, TSH, T7 #### [facility] [address] [place] [address] Dr. Jay Cortes Urea nitrogen/Creatinine [Mass ratio] 25.0 mg/mg Normal [facility] Comment on above: Performed By: #### C MP, LIPID, TSH, T7 #### [facility] [address] [place] [address] Dr. Jay Cortes TSHon 10-13-2022 TSH 0.941 uIU/mL Normal 0.358-3.740 [facility] Comment on above: Performed By: #### C MP, LIPID, TSH, T7 #### [facility] [address] [place] [address] Dr. Jay Cortes VAGINITIS/VAGINOSIS DNA PROB Tarun 06-27-2022 Wendy species Negative Normal Negative [facility] Comment on above: Performed By: #### V AGINT #### [facility] [address] [address] [address] Jay Cortes Gardnerella vaginalis Negative Normal Negative [facility] Comment on above: Performed By: #### V AGINT #### [facility] [address] [address] [address] Jay Cortes Trichomonas vaginalis Negative Normal Negative [facility] Comment on above: Performed By: #### V AGINT #### [facility] [address] [address] [address] Jay Cortes PAP ACOG PANEL 2: 30 to 65on 06-22-2022 . . Normal [facility] Comment on above: Result Comment: Perf ormed at: WB Performed By: #### [id number] ####[facility] [address] [address]Dr. Jay Cortes Age Gdln ACOG Testing 30-65 Normal [facility] Comment on above: Performed By: #### [id number] ####[facility] [address] [address]Dr. Jay Cortes DIAGNOSIS: Comment Normal [facility] Comment on above: Result Comment: NEGA TIVE FOR INTRAEPITHELIAL LESION OR MALIGNANCY. Performed at: WB Performed By: #### [id number] ####[facility] [address] [address]Dr. Jay Cortes HPV Aptima Negative Normal Negative [facility] Comment on above: Result Comment: This nucleic acid amplification test detects fourteen high-risk HPV types (16,18,31,33,35,39,45,51,52,56,58,59,66,68) without differentiation. Performed at: =G Performed By: #### [id number] ####[facility] [address] [address]Dr. Jay Cortes Methodology: Comment Normal [facility] Comment on above: Result Comment: This liquid based ThinPrep(R) pap test was screened with the use of an image guided system. Performed at: WB Performed By: #### [id number] ####[facility] [address] [address]Dr. Jay Cortes Note: Comment Normal [facility] Comment on above: Result Comment: The Pap smear is a screening test designed to aid in the detection of premalignant and malignant conditions of the uterine cervix. It is not a diagnostic procedure and should not be used as the sole means of detecting cervical cancer. Both false-positive and false-negative reports do occur. . Performed at: WB Performed By: #### [id number] ####[facility] [address] [address]Dr. Jay Cortes Performed by: Comment Normal [facility] Comment on above: Result Comment: Annalise Tubbs, Brake Adjuster (ASCP) Performed at: WB Performed By: #### [id number] ####[facility] [address] [address]DrBrad Cortes Specimen adequacy: Comment Normal [facility] Comment on above: Result Comment: Sati sfactory for evaluation. No endocervical cells are present. This is consistent with a history of hysterectomy. Performed at: WB Performed By: #### [id number] ####[facility] [address] [address]Dr. Jay Cortes MG MAMM SCREEN 3D MIGUEL CADon 06-13-2022 MG MAMM SCREEN 3D MIGUEL CAD Patient: FANG OBRIEN Exam Date: 06/13/2022 : 1965 Gender:F Ordering : DR TRICIA VELASQUEZ . Admission #: [id number] Family : Order #: [id number] CLICK HERE TO VIEW EXAM RADIOLOGY REPORT PROCEDURE: MAMMOGRAM SCREENING 3D BILATERAL CAD COMPARISON: MG MAMM SCREEN MIGUEL W CAD, 06/04/2020. MG MAMM SCREEN MIGUEL W CAD, 06/06/2021. INDICATIONS: Screening mammography Calculator Name NCI Breast Cancer Risk Assessment Tool 5 Year Breast Cancer Risk 1.20% Lifetime Breast Cancer Risk 8.50% Personal Breast Cancer No Personal Ovarian Cancer No Treatments None Family Cancers None LOCATION: [facility] BREAST COMPOSITION: Heterogeneously dense,which may obscure small masses. FINDINGS: DIAGNOSTIC CATEGORY 1--NEGATIVE. NO CHANGE FROM COMPARISON ASSESSMENT. Scattered benign-appearing nodules are present. Scattered benign-appearing calcifications are present. Scattered benign-appearing lymph nodes are present. RIGHT BREAST: No significant suspicious finding. LEFT BREAST: No significant suspicious finding. RECOMMENDATIONS: ROUTINE MAMMOGRAM AND CLINICAL EVALUATION IN 12 MONTHS. PLEASE NOTE: A NORMAL MAMMOGRAM DOES NOT EXCLUDE THE POSSIBILITY OF BREAST CANCER. A CLINICALLY SUSPICIOUS PALPABLE LUMP SHOULD BE BIOPSIED. Dictated by: Barbara Martinez MD on 06/13/2022 at 09:09 Approved by: Barbara Martinez MD on 06/13/2022 at 09:10 Normal [facility] XR DEXA BONE DENSITYon 06-13 XR DEXA BONE DENSITY DEXA Bone Density Study CLINICAL: Evaluate bone mineral density. Postmenopausal COMPARISON: 06/11/2020 FINDINGS: The bone density study was assessed by dual-energy x-ray absorptiometry with the Noovo scanner. The test results are expressed in T-Score, which is used for diagnosis for osteoporosis, and reflects the standard deviations from the mean peak bone mineral density in young adults. Additional information regarding the Z-Score reflects the standard deviations from the mean peak bone mineral density for age- and gender- matched subject. Lumbar Spine (L1-L4): BMD (gm/cm2): 1.4-6 T-Score: 2.1 Left Hip: BMD (gm/cm2): 0.904 T-Score: -0.8 Left Femoral Neck: BMD (gm/cm2): 0.909 T-Score: -0.9 Right hip Hip: BMD (gm/cm2): 0.933 T-Score: -0.6 Right Femoral Neck: BMD (gm/cm2): 0.951 T-Score: -0.6 IMPRESSION: Lumbar spine, left hip, and right hip indicate no osteopenia or osteoporosis. REFERENCE: In children, postmenopausal women and males under age 50 not at increased risk for fractures, only Z-Scores, not T-Scores, are used to indicate fracture risk. A Z-Score above -2.0 is defined as within the expected range for age and Z-Score at or less than -2.0 is below the expected range for age. A Z-Score below the expected range for age in a patient with recent fractures and/or chronic corticosteroid treatment is consistent with a diagnosis of osteoporosis. In postmenopausal women and males over 50, comparison of the measured bone mineral density with the average value in young normal subjects (the T-Score) has been found to be useful in assessing fracture risk. Fracture risk approximately doubles for each 1.0 standard deviation (SD) that the individual's hip or spine bone mineral density is below the average value of young normal subjects. The World health Organization (WHO) has provided the following definitions: 1. Normal: T-Score within one standard deviation of young adult mean value (T-Score greater than -1.0). 2. Osteopenia (low bone mass): T-Score more than one standard deviation below the young adult mean but less than 2.5 standard deviations below the young adult mean (T-Score between -1.0 and -2.5). 3. Osteoporosis: T-Score more than 2.5 standard deviations below the young adult mean (T-Score less than -2.5). 4. Sever Osteoporosis (established osteoporosis): T-Score more than 2.5 standard deviations below young adult and one or more fragility fracture (T-Score less than -2.5 + fragility fractures). Electronically authenticated by: BARBARA ATKINS Date: 2022-06-13 08:30 Normal [facility] Vital Signs Date Time Vital Sign Value Performing Clinician Megan mullen 10-28-2022 15:02-0500 Blood Pressure Location Eric ALLEN [facility] 10-28-2022 15:02-0500 Diastolic blood pressure 86 mm[Hg] Eric ALLEN [facility] 10-28-2022 15:02-0500 Heart rate 70 /min Eric ALLEN [facility] 10-28-2022 15:02-0500 Respiratory rate 16 /min Eric ALLEN [facility] 10-28-2022 15:02-0500 Systolic blood pressure 122 mm[Hg] Eric ALLEN [employer] [facility] Encounters Encounter Date Encounter Type Care Provider Facility Start: 11-26-2022 End: 11-27-2022 ambulatory Eric ALLEN Facility: [facility] Start: 11-19-2022 End: 11-20-[address] ERIC ALLEN . Facility: Start: 10-28-2022 End: 10-29-2022 ambulatory Eric ALLEN Facility: [facility] Start: 10-28-2022 End: 10-28-2022 Patient encounter procedure Eric ALLEN [facility] Start: 10-14-2022 End: 10-14-[address] HORACIO SAN . Facility:[facility] Start: 10-13-2022 End: 10-14-[address] HORACIO SAN . Facility: Start: 06-25-2022 End: 06-25-[address] TRICIA VELASQUEZ . Facility:[facility] Start: 06-16-2022 End: 06-16-[address] TRICIA VELASQUEZ . Facility: Start: 06-13-2022 End: 06-14-[address] TRICIA VELASQUEZ . Facility: Procedures Date Procedure Procedure Detail Performing Clinician Abdominal hysterectomy Buddy ely ALLEN Colonoscopy Eric ALLEN Repair of umbilical hernia Anjali amado LISBETH Tonsillectomy and adenoidectomy Eric ALLEN Immunizations Immunization Date Immunization Notes Care Provider [facility] 08-08-2022 influenza virus vaccine, unspecified formulation Eric ALLEN [facility] [place] 08-17-2021 SARS-CoV-2 (COVID-19 ) mRNA-1272 vaccine Eric ERENDIRAMoises [facility] [place] Comment on above: Result Comment: 2022: TPV50 12-21-2020 SARS-CoV-2 (COVID-19 ) mRNA-1273 vaccine Eric ERENDIRAMoises [facility] [place] 11-23-2020 SARS-CoV-2 (COVID-19 ) mRNA-1273 vaccine Eric NILL [facility] [place] Payers Date Payer Category Payer Unknown [id number] 2.16.84 [id number] 1965 Unknown [id number] 2.16.84 [id number] 1965 Unknown [id number] 2.16.84 [id number] 1965 Unknown [id number] 2.16.84 [id number] 1965 Unknown [id number] 2.16.84 [id number] 1965 Unknown [id number] 2.16.84 [id number] 1965 Unknown [id number] 2.16.8 [id number] 1965 Unknown [id number] 2.16.8 [id number] 1965 Unknown [id number] 2.16.8 [id number] 1957 Unknown [id number] Social History Date Type Detail Facility Start: 10-28-2022 Tobacco smoking status Never s moked tobacco (finding) [facility] [place] Tobacco smoking status Never Gener al [facility] [place] Sex Assigned At Female [facility] Functional Status Date Assessment Result Facility 10-28-2022 Functional Status N/A [facility] [place] Clinical Note 11-19-2022 Note Date & Type Note Facility 11-19-2022 Note OPERATIVE NOTE OPERATION DATE: 11/19/2022 PREOPERATIVE DIAGNOSIS: Enlarging lipoma right lateral thigh. POSTOPERATIVE DIAGNOSIS: Enlarging lipoma right lateral thigh. PROCEDURE: Excisional biopsy lipoma of right lateral thigh. SURGEON: Eric Allen M.D. ANESTHESIA: Local with 0.5% Marcaine plain. ESTIMATED BLOOD LOSS: Less than 2 mL. TOTAL LENGTH OF LIPOMA: 4 cm. INDICATIONS AND CONSENT: Patient is a 57-year-old female with history of enlarging lipoma on the right lateral thigh that has been present for several years. Indications, risks, benefits, alternatives of proceeding with excisional biopsy under local anesthesia were explained extensively to the patient, including the risks of bleeding, infection, scarring, pain, recurrence, need for further surgery. All of her questions were answered. Informed consent was obtained. PROCEDURE: Patient brought to the operating room, placed in the supine position. She was prepped and draped in the usual sterile fashion. The area was anesthetized with 0.5% Marcaine plain. Incision was made over the long axis of the lesion, carried down through subcutaneous tissue using sharp dissection. The 4 cm lipomas was removed and sent off to pathology. The wound was irrigated. The subcutaneous tissue was re-approximated with interrupted 3-0 Monocryl suture, and there was good hemostasis. The skin was then closed with a running 4-0 subcuticular Monocryl suture and skin sterile. A sterile dressing was applied. Sponge and needle counts were correct x2 per nursing personnel. Patient tolerated procedure well, was discharged home in good condition. ESTIMATED BLOOD LOSS: Less than 2 mL. CC: Horacio San M.D. [facility] Clinical Note 10-28-2022 Note Date & Type Note Facility 10-28-2022 Note Chief Complaint consultation for thigh lipoma HPI Staff 57 year old female presents on consultation from Dr. San for right upper thigh lipoma. Present greater than 20 years. Gradual increase in size. Discomfort when pressure applied. History of Present Illness 57 yo female referred for enlarging right thigh lipoma; present for over 20 years, gradually increasing in size; sore at times; no skin changes, no injury to area; on baby asa daily and Diclofenac prn; no tobacco use. Review of Systems PHQ Score Initial Depression Screen Score: 0 ROS - Provider Constitutional: no fever, no sweats, no weight loss. Eyes: no glasses, no blurred vision, no visual loss. ENMT: no dentures, no hoarseness, no swallowing difficulties, no hearing loss, no ear infection(s), no nose bleeds. Cardiovascular: normal blood pressure, no chest pain, regular heartbeat, no heart murmur. Respiratory: no shortness of breath, no cough, no asthma, no wheezing. Gastrointestinal: no nausea, no vomiting, no diarrhea, no constipation, no blood in stool, no change in bowel habits, no abdominal pain, no hepatitis. Genitourinary: no kidney stones, no urine infection, no dysuria. Musculoskeletal: no pain, no weakness. Skin: no changing moles, no rash, yes skin lumps. Neurologic: no seizures, no epilepsy, no headache. Psychiatric: no emotional or psychiatric problem. Heme/Lymph: no bleeding problems, no anemia, no blood clots, no transfusions. Allergy/Immunologic: no swollen lymph nodes/glands, no IV drug abuse. Other: Additional ROS info: Except as noted in the above Review of Systems and in the History of Present Illness, all other systems have been reviewed and are negative or noncontributory. Physical Exam Vitals & Measurements HR: 70(Peripheral) RR: 16 BP: 122/86 HT: 67 in HT: 170.18 cm WT: 77.5 kg WT: 170.5 lb BMI: 26.76 Eyes: normal conjunctiva, sclera clear, no scleral icterus, EOM intact, PERRLA. Neck: trachea midline, no mass, symmetric, no thyromegaly or nodules. Respiratory: lungs CTA, respirations non labored. Cardiovascular: regular rate and rhythm, no murmur, normal bilateral carotid pulses without bruits, abd aorta without dilatation or bruit, femoral arteries intact, no pedal edema or varicosities. Musculoskeletal: normal gait, digits and nails without infection, nodes, cyanosis, clubbing. Skin: no rashes, no lesions, no ulcers, right anterio-lateral proximal thigh with 3 cm subcutnaeous nodule, soft, no skin changes. Psychiatric/Neuro: oriented to time, place, person, judgement normal, affect appropriate for age, insight intact, no focal deficits. Tests: review of old records completed, reviewed with other physician _, pt info booklet reviewed and given _. Discussed surgical options, risks, and possible complications with patient. Assessment/Plan 1. Lipoma of right thigh (D17.23: Benign lipomatous neoplasm of skin and subcutaneous tissue of right leg) plan excisional biopsy under local anesthesia at [facility], informed consent obtained. Follow-up No qualifying data available Problem List/Past Medical History Ongoing Anxiety BMI 26.0-26.9,adult Depression Lipoma of right thigh Umbilical hernia Historical No qualifying data Procedure/Surgical History Abdominal hysterectomy, Colonoscopy, Repair of umbilical hernia, Tonsillectomy and adenoidectomy. Medications aspirin 81 mg Oral EC Tab, 81 mg= 1 tab(s), Oral, Daily diclofenac sodium 75 mg Oral EC Tab, 75 mg= 1 tab(s), Oral, BID Multi Vitamins oral tablet, 1 tab(s), Oral, Daily Allergies penicillin (Itching) Social History Alcohol - Denies Alcohol Use, 10/28/2022 Substance Abuse - Denies Substance Abuse, 10/28/2022 Tobacco Never (less than 100 in lifetime) Tobacco Use:. Never Smokeless Tobacco Use:., 10/28/2022 Family History Heart disease: Father. Multiple sclerosis: Mother and Sister. Immunizations Vaccine Date Status Comments influenza virus vaccine, inactivated 08/08/2022 Recorded SARS-CoV-2 (COVID-19) mRNA-1273 vaccine 08/17/2021 Recorded 2022-10-22: [id number] SARS-CoV-2 (COVID-19) mRNA-1273 vaccine 12/21/2020 Recorded SARS-CoV-2 (COVID-19) mRNA-1273 vaccine 11/23/2020 Recorded [facility] Comment on above: Result Comment: Elec tronically Signed By: LISBETH TERESA, Eric Fierro\Date and Time Signed: 10/28/22 15:34 EST Evaluation + Plan note Note Date & Type Note Facility Evaluation + Plan note No data available for this section [facility] [place] [facility] Discharge instructions Note Date & Type Note Facility Hospital Discharge instructions No data available for this section [facility] [place] Progress note Note Date & Type Note Facility Progress note No data available for this section [facility] [place] Summary Purpose Family History No Family History Records FoundNo Family History Records Found Advance Directives No Advanced Directives Records FoundNo Advanced Directives Records Found Additional Source Comments Patient Care team informatio n (unrecognized section and content) Personnel Name: Horacio San MD Address: Address: [address] [place] [address] INFORMATION SOURCE (unrecogn ized section and content) DATE CREATED AUTHOR 12/05/2022 [facility] DATE CREATED AUTHOR AUTHOR'S TAE WASHINGTON 12/14/2022 [facility] FOR RECORDS PERTAINING TO PATIENTS WHO ARE OR HAVE BEEN ENROLLED IN A CHEMICAL DEPENDENCY/SUBSTANCEABUSE PROGRAM, SOME INFORMATION MAY BE OMITTED. This clinical summary was aggregated from multiple sources. Caution should be exercised in using it in the provision of clinical care. This summary normalizes information from multiple sources, and as a consequence, information in this document may materially change the coding, format and clinical context of patient data. In addition, data may be omitted in some cases. CLINICAL DECISIONS SHOULD BE BASED ON THE PRIMARY CLINICAL RECORDS. [facility] [employer] [facility]. provides no warranty or guarantee of the accuracy or completeness of information in this document.
--- NOTE | 2024-06-22 08:11 | MM_ITS ---
Patient Name: FANG OBRIEN MR#: [id number] : 1965 Exam Date: 06/22/2024 Ordering Doctor: DR Darin Constantino . RADIOLOGY REPORT PROCEDURE: MM TOMOSYNTHESIS SCREENING BI COMPARISON: MM TOMOSYNTHESIS SCREENING BI, 06/15/2023. MG MAMM SCREEN 3D MIGUEL CAD, 06/13/2022. MG MAMM SCREEN MIGUEL W CAD, 06/06/2021. MG MAMM MIGUEL SCRN W CAD DIG, 01/27/2013. INDICATIONS: Screening Calculator Name NCI Breast Cancer Risk Assessment Tool 5 Year Breast Cancer Risk 1.20% Lifetime Breast Cancer Risk 8.10% Personal Breast Cancer No Personal Ovarian Cancer No Treatments None Family Cancers None LOCATION: [facility] BREAST COMPOSITION: The breasts are heterogeneously dense,which may obscure small masses. FINDINGS: DIAGNOSTIC CATEGORY 2--BENIGN FINDING: RIGHT BREAST: No significant suspicious finding. No significant change has occurred. LEFT BREAST: No significant suspicious finding. Scattered benign-appearing calcifications are present. No significant change has occurred. RECOMMENDATIONS: ROUTINE MAMMOGRAM AND CLINICAL EVALUATION IN 12 MONTHS. PLEASE NOTE: A NORMAL MAMMOGRAM DOES NOT EXCLUDE THE POSSIBILITY OF BREAST CANCER. A CLINICALLY SUSPICIOUS PALPABLE LUMP SHOULD BE BIOPSIED. Dictated by: Larry Berkowitz M.D. on 06/22/2024 at 15:08 Approved by: Larry Berkowitz M.D. on 06/22/2024 at 15:10
== END 2024-06-22 08:02 | disposition home or self-care (01) ==
LOC: MAMMO 08:02
PROVIDERS: PCP Family Medicine; Visit Provider Obstetrics & Gynecology
DX: Z12.31 Encounter for screening mammogram for malignant neoplasm of breast (principal)
CPT/HCPCS: 77063; 77067

== ENCOUNTER 2024-07-05 19:22 | Outpatient (REF) | payer OTHER, SELFPAY ==
--- OUTSIDE RECORDS SUMMARY | 2024-07-05 19:27 | XMS_ITS | CCD ---
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] Onset: 11-24-2022 Episodic Other aftercare (1 source) Other intermediate (current) drug therapy; 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: [OTH USP CURRENT DRUG THERAPY] Onset: 11-24-2022 Episodic Other [...] of right thigh Umbilical hernia Normal [facility] General Surgery Office/Clini c Noteon 11-26-2022 General [...] SARS-CoV-2 (COVID-19) mRNA-1273 vaccine 11/23/2020 Recorded Normal [facility] Comment on above: Result Comment: Elec tronically Signed By: LISBETH TERESA, Eric Fierro\Date and Time Signed: 11/26/22 16:51 EDT Pathology Noteon 11-24-2022 Pathology Note [id number] .00CD:127 Normal [facility] Operative Reporton Operative Report [id number] .00CD:127 Normal [facility] Consent for Procedure/Surger yon 10-29-2022 Consent for Procedure/Surgery [id number] .[id number]:127 Normal [facility] Facesheeton 10-29-2022 Facesheet [id number] .00CD:127 Normal [facility] Ambulatory Visit Summaryon 0 10-28-2022 Ambulatory Visit [...] Lipoma of right thigh Umbilical hernia Normal [facility] Physician Referralon 023 Physician Referral [id number] .[id number]:127 Normal [facility] INSULINon 10-14-2022 Insulin 6.7 uIU/mL Normal 2.6-24.9 [facility] Comment on above: Performed By: #### I NSULIN #### [facility] [address] [place], [place] [address] Dr. Jay MORGAN BLD IMMUNO SCREENon 09-16 OCCULT BLOOD Negative Normal NEGATIVE [facility] Comment on above: Performed By: #### O BSCRN ####[facility] [address] [place] [address]Dr. Jay Sebastian CBC AUTO DIFFon 10-13-2022 BASO # 0.0 103/ul Normal 0.0-0.1 [facility] Comment on above: Performed By: #### C BC ####[facility] [address] [place], [place] [address]Dr. Conniesabas Cortes Basophils/100 WBC (Bld) 1.0 % Normal 0.2-2.0 [facility] Comment on above: Performed By: #### C BC ####[facility] [address] [place], [place] [address]Dr. Jay Cortes EO # 0.1 103/ul Normal 0.0-0.7 [facility] Comment on above: Performed By: #### C BC ####[facility] [address] [place], [place] [address]Dr. Jay Cortes Eosinophils/100 WBC (Bld) 2.3 % Normal 0.9-7.0 [facility] Comment on above: Performed By: #### C BC ####[facility] [address] [place], [place] [address]Dr. Conniesabas Cortes Erythrocyte distribution width (RBC) [Ratio] 12.7 % Normal 11.0-15.0 [facility] Comment on above: Performed By: #### C BC ####[facility] [address] [place], [place] [address]Dr. Jay Cortes Hematocrit (Bld) [Volume fraction] 39.9 % Normal 36.0-48.0 [facility] Comment on above: Performed By: #### C BC ####[facility] [address] [place], [place] [address]Dr. Jay Cortes Hemoglobin (Bld) [Mass/Vol] 13.6 g/dL Normal 12.0-16.0 [facility] Comment on above: Performed By: #### C BC ####[facility] [address] [place], [place] [address]Dr. Jay Cortes IG # 0.01 10e3/ul Normal 0.00-0.03 [facility] Comment on above: Performed By: #### C BC ####[facility] [address] [place] [id number]. Jay Cortes IG % 0.3 % Normal 0.0-0.5 [facility] Comment on above: Performed By: #### C BC ####[facility] [address] [place] [id number]. Jay Cortes LYMPH # 1.4 103/ul Normal 1.2-3.8 [facility] Comment on above: Performed By: #### C BC ####[facility] [address] [place] [id number]. Jay Cortse Lymphocytes/100 WBC (Bld) 34.3 % Normal 20.5-60.0 [facility] Comment on above: Performed By: #### C BC ####[facility] [address] [place] [address]Dr. Jay Cortes MANUAL DIFF REQ NO Normal [facility] Comment on above: Performed By: #### C BC ####[facility] [address] [place] [id number]. Jay Cortes MCH (RBC) [Entitic mass] 30.6 pg Normal 26.7-34.0 [facility] Comment on above: Performed By: #### C BC ####[facility] [address] [place] [id number]. Jay Cortes MCHC (RBC) [Mass/Vol] 34.1 g/dL Normal 29.9-35.2 [facility] Comment on above: Performed By: #### C BC ####[facility] [address] [place] [id number]. Jay Cortes MCV (RBC) [Entitic vol] 89.7 fL Normal 81.0-99.0 [facility] Comment on above: Performed By: #### C BC ####[facility] [address] [place] [id number]. Jay Sebastian MONO # 0.3 103/ul Normal 0.3-0.8 [facility] Comment on above: Performed By: #### C BC ####[facility] [address] [place] [id number]. Jay Cortes Monocytes/100 WBC (Bld) 6.3 % Normal 1.7-12.0 [facility] Comment on above: Performed By: #### C BC ####[facility] [address] [place] [id number]. Jay Cortes NEUT # 2.2 103/ul Normal 1.4-6.5 [facility] Comment on above: Performed By: #### C BC ####[facility] [address] [place] [id number]. Jay Cortes Neutrophils/100 WBC (Bld) 55.8 % Normal 43.0-75.0 [facility] Comment on above: Performed By: #### C BC ####[facility] [address] [place] [id number]. Jay Cortes Platelet mean volume (Bld) [Entitic vol] 10.0 fL Normal 9.5-13.5 [facility] Comment on above: Performed By: #### C BC ####[facility] [address] [place] [id number]. Jay Cortes PLT 265 103/ul Normal 150-450 [facility] Comment on above: Performed By: #### C BC ####[facility] [address] [place] [phone]. Jay Cortes RBC 4.45 106/ul Normal 4.20-5.40 [facility] Comment on above: Performed By: #### C BC ####[facility] [address] [place], [place] [id number]. Jay Cortes WBC 4.0 103/ul Normal 4.0-11.0 [facility] Comment on above: Performed By: #### C BC ####[facility] [address] [place], [place] [address]Dr. Jay Cortes FREE THYROXINE INDEX T7on FTI 2.49 Normal 1.30-4.50 [facility] Comment on above: Performed By: #### C MP, LIPID, TSH, T7 #### [facility] [address] [place], [place] [address] Dr. Jay Cortes T3U 35.0 % Normal 30.0-39.0 [facility] Comment on above: Performed By: #### C MP, LIPID, TSH, T7 #### [facility] [address] [place] [address] [address] Jay Cortes T4 [Mass/Vol] 7.10 ug/dL Normal 4.80-13.90 [facility] Comment on above: Performed By: #### C MP, LIPID, TSH, T7 #### [facility] [address] [place] [address] [address] Jay Cortes GLYCOHEMOGLOBIN A1Con 2022 ADA RECOMMENDATION SEE BELOW Normal [facility] Comment on above: Result Comment: ADA RECOMMENDED LIMIT 4.0 - 6.0 ADA THERAPEUTIC TARGET < 7.0 ACTION SUGGESTED > 7.0 Performed By: #### A 1C #### [facility] [address] [place] [address] [address] Jay Cortes Glucose [Mass/Vol] 105 mg/dL Normal [facility] Comment on above: Performed By: #### A 1C #### [facility] [address] [place] [address] [address] Jay Cortes HbA1c (Bld) [Mass fraction] 5.3 % Normal 4.5-6.2 [facility] Comment on above: Performed By: #### A 1C #### [facility] [address] [place] [address] [address] Jay Cortes IRONon 10-13-2022 Iron [Mass/Vol] 90.0 ug/dL Normal 50.0-170.0 [facility] Comment on above: Performed By: #### I ALANA ####[facility] [address] [place] [address]Dr. Jay Cortes LIPID PROFILEon 10-13-2022 CHOL-HDL RATIO NORM SEE BELOW Normal [facility] Comment on above: Result Comment: 3.3 - 4.4 LOW RISK 4.4 - 7.1 AVERAGE RISK 7.1 - 11.0 MODERATE RISK >11.0 HIGH RISK Performed By: #### C MP, LIPID, TSH, T7 #### [facility] [address] [place] [address] [address] Jay Cortes Cholesterol [Mass/Vol] 175 mg/dL Normal <=200 [facility] Comment on above: Performed By: #### C MP, LIPID, TSH, T7 #### [facility] [address] [place] [address] [address] Jay Cortes Cholesterol in HDL [Mass/Vol] 72 mg/dL Critically high 40-60 [facility] Comment on above: Performed By: #### C MP, LIPID, TSH, T7 #### [facility] [address] [place] [address] [address] Jay Cortes Cholesterol in LDL [Mass/Vol] 88.0 mg/dL Normal [facility] Comment on above: Performed By: #### C MP, LIPID, TSH, T7 #### [facility] [address] [place] [address] [address] Jay Cortes Cholesterol.total/Cho lesterol in HDL [Mass ratio] 2.4 {ratio} Normal [facility] Comment on above: Performed By: #### C MP, LIPID, TSH, T7 #### [facility] [address] [place] [address] [address] Jay Cortes HDL NORMAL > or = 60 mg/dl - LO W CARDIOVASCULAR RISK <40 mg/dl - HIGH CARDIOVASCULAR RISK Normal [facility] Comment on above: Performed By: #### C MP, LIPID, TSH, T7 #### [facility] [address] [place] [address] [address] Jay Cortes LDL CALC NORMAL SEE BELOW Normal [facility] Comment on above: Result Comment: <100 mg/dl OPTIMAL 100 - 129 mg/dl NEAR OR ABOVE OPTIMAL 130 - 159 mg/dl BORDERLINE HIGH 160 - 189 mg/dl HIGH >190 mg/dl VERY HIGH Performed By: #### C MP, LIPID, TSH, T7 #### [facility] [address] [place] [address] [address] Jay Cortes Triglyceride [Mass/Vol] 75 mg/dL Normal <=150 [facility] Comment on above: Performed By: #### C MP, LIPID, TSH, T7 #### [facility] [address] [place] [address] Dr. Jay Cortes VLDL CALC 15.0 mg/dL Normal [facility] Comment on above: Performed By: #### C MP, LIPID, TSH, T7 #### [facility] [address] [place] [address] Dr. Jay Cortes PROF 14(COMP METB)on 023 Albumin [Mass/Vol] 4.1 g/dL Normal 3.4-5.0 [facility] Comment on above: Performed By: #### C MP, LIPID, TSH, T7 #### [facility] [address] [place] [address] Dr. Jay Cortes Albumin/Globulin [Mass ratio] 1.2 {ratio} Normal [facility] Comment on above: Performed By: #### C MP, LIPID, TSH, T7 #### [facility] [address] [place] [address] Dr. Jay Cortes ALP [Catalytic activity/Vol] 51 U/L Normal 46-116 [facility] Comment on above: Performed By: #### C MP, LIPID, TSH, T7 #### [facility] [address] [place] [address] Dr. Jay Cortes ALT [Catalytic activity/Vol] 23 U/L Normal 14-59 [facility] Comment on above: Performed By: #### C MP, LIPID, TSH, T7 #### [facility] [address] [place] [address] Dr. Jay Cortes Anion gap [Moles/Vol] 11.4 mmol/L Normal [facility] Comment on above: Performed By: #### C MP, LIPID, TSH, T7 #### [facility] [address] [place] [address] Dr. Jay Cortes AST [Catalytic activity/Vol] 12 U/L Critically low 15-37 [facility] Comment on above: Performed By: #### C MP, LIPID, TSH, T7 #### [facility] [address] [place] [address] Dr. Jay Cortes Bilirubin [Mass/Vol] 0.3 mg/dL Normal 0.2-1.0 [facility] Comment on above: Performed By: #### C MP, LIPID, TSH, T7 #### [facility] [address] [place] [address] [address] Jay Cortes Calcium [Mass/Vol] 8.9 mg/dL Normal 8.5-10.1 [facility] Comment on above: Performed By: #### C MP, LIPID, TSH, T7 #### [facility] [address] [place] [address] Dr. Jay Cortes Chloride [Moles/Vol] 104 mmol/L Normal 98-107 [facility] Comment on above: Performed By: #### C MP, LIPID, TSH, T7 #### [facility] [address] [place] [address] Dr. Jay Cortes CO2 [Moles/Vol] 29.5 mmol/L Normal 21.0-32.0 [facility] Comment on above: Performed By: #### C MP, LIPID, TSH, T7 #### [facility] [address] [place] [address] Dr. Jay Cortes Creatinine [Mass/Vol] 0.60 mg/dL Normal 0.55-1.02 [facility] Comment on above: Performed By: #### C MP, LIPID, TSH, T7 #### [facility] [address] [place] [address] Dr. Jay Cortes EGFR-AF SLOVENIAN >60 Normal >=60 [facility] Comment on above: Performed By: #### C MP, LIPID, TSH, T7 #### [facility] [address] [place] [address] Dr. Jay Cortes EGFR-NON AF SLOVENIAN >60 Normal >=60 [facility] Comment on above: Performed By: #### C MP, LIPID, TSH, T7 #### [facility] [address] [place] [address] Dr. Jay Cortes Globulin (S) [Mass/Vol] 3.3 g/dL Normal [facility] Comment on above: Performed By: #### C MP, LIPID, TSH, T7 #### [facility] [address] [place] [address] [address] Jay Cortes Glucose [Mass/Vol] 103 mg/dL Normal 74-106 [facility] Comment on above: Performed By: #### C MP, LIPID, TSH, T7 #### [facility] [address] [place] [address] [address] Jay Cortes Potassium [Moles/Vol] 3.9 mmol/L Normal 3.5-5.1 [facility] Comment on above: Performed By: #### C MP, LIPID, TSH, T7 #### [facility] [address] [place] [address] Dr. Jay Cortes Protein [Mass/Vol] 7.4 g/dL Normal 6.4-8.2 [facility] Comment on above: Performed By: #### C MP, LIPID, TSH, T7 #### [facility] [address] [place] [address] Dr. Jay Cortes Sodium [Moles/Vol] 141 mmol/L Normal 136-145 [facility] Comment on above: Performed By: #### C MP, LIPID, TSH, T7 #### [facility] [address] [place] [address] [address] Jay Cortes Urea nitrogen [Mass/Vol] 15.0 mg/dL Normal 7.0-18.0 [facility] Comment on above: Performed By: #### C MP, LIPID, TSH, T7 #### [facility] [address] [place] [address] Dr. Jay Cortes Urea nitrogen/Creatinine [Mass ratio] 25.0 mg/mg Normal [facility] Comment on above: Performed By: #### C MP, LIPID, TSH, T7 #### [facility] [address] [place] [address] Dr. Jay Cortes TSHon 10-13-2022 TSH 0.941 uIU/mL Normal 0.358-3.740 [facility] Comment on above: Performed By: #### C MP, LIPID, TSH, T7 #### [facility] [address] [place] [address] Dr. Jay Cortes VAGINITIS/VAGINOSIS DNA PROB Tarun 06-27-2022 Wendy species Negative Normal Negative [facility] Comment on above: Performed By: #### V AGINT #### [facility] [address] [place] [address] [address] Jay Cortes Gardnerella vaginalis Negative Normal Negative [facility] Comment on above: Performed By: #### V AGINT #### [facility] [address] [place] [address] [address] Jay Cortes Trichomonas vaginalis Negative Normal Negative [facility] Comment on above: Performed By: #### V AGINT #### [facility] [address] [place] [address] [address] Jay Cortes PAP ACOG PANEL 2: 30 to 65on 06-22-2022 . . Normal [facility] Comment on above: Result Comment: Perf ormed at: WB Performed By: #### 4 [id number] ####[facility] [address] [place] [address]Dr. Jay Cortes Age Gdln ACOG Testing 30-65 Normal [facility] Comment on above: Performed By: #### 4 [id number] ####[facility] [address] [place] [address]Dr. Jay Cortes DIAGNOSIS: Comment Normal [facility] Comment on above: Result Comment: NEGA TIVE FOR INTRAEPITHELIAL LESION OR MALIGNANCY. Performed at: WB Performed By: #### 4 [id number] ####[facility] [address] [place] [address]Dr. Jay Cortes HPV Aptima Negative Normal Negative [facility] Comment on above: Result Comment: This nucleic acid amplification test detects fourteen high-risk HPV types (16,18,31,33,35,39,45,51,52,56,58,59,66,68) without differentiation. Performed at: =G Performed By: #### 4 [id number] ####[facility] [address] [place] [address]Dr. Jay Cortes Methodology: Comment Normal [facility] Comment on above: Result Comment: This liquid based ThinPrep(R) pap test was screened with the use of an image guided system. Performed at: WB Performed By: #### 4 [id number] ####[facility] [address] [place] [address]Dr. Jay Cortes Note: Comment Normal [facility] Comment on above: Result Comment: The Pap smear is a screening test designed to aid in the detection of premalignant and malignant conditions of the uterine cervix. It is not a diagnostic procedure and should not be used as the sole means of detecting cervical cancer. Both false-positive and false-negative reports do occur. . Performed at: WB Performed By: #### 4 [id number] ####[facility] [address] [place] [address]Dr. Jay Cortes Performed by: Comment Normal [facility] Comment on above: Result Comment: Annalise Tubbs, Sizer Machine (ASCP) Performed at: WB Performed By: #### 4 [id number] ####[facility] [address] [place] [address]DrBrad Cortes Specimen adequacy: Comment Normal [facility] Comment on above: Result Comment: Sati sfactory for evaluation. No endocervical cells are present. This is consistent with a history of hysterectomy. Performed at: WB Performed By: #### 4 [id number] ####[facility] [address] [place] [address]Dr. Jay Cortes MG MAMM SCREEN 3D MIGUEL CADon 06-13-2022 MG MAMM SCREEN 3D MIGUEL CAD Patient: FANG OBRIEN Exam Date: 06/13/2022 : 1965 Gender:F Ordering : DR TRICIA VELASQUEZ . Admission #: [id number] Family : Order #: [id number] CLICK HERE TO VIEW EXAM RADIOLOGY REPORT [...] Treatments None Family Cancers None LOCATION: [facility] BREAST COMPOSITION: Heterogeneously dense,which may obscure [...] MD on 06/13/2022 at 09:10 Normal [facility] XR DEXA BONE DENSITYon 06-13 XR DEXA BONE DENSITY DEXA Bone Density Study CLINICAL: Evaluate bone mineral density. Postmenopausal COMPARISON: 06/11/2020 FINDINGS: The bone density study was assessed by dual-energy x-ray absorptiometry with the [employer] scanner. The test results are expressed in [...] by: BARBARA ATKINS Date: 2022-06-13 08:30 Normal [facility] Vital Signs Date Time Vital Sign Value Performing Clinician Megan mullen 10-28-2022 15:02-0500 Blood Pressure Location Eric ALLEN [place] 10-28-2022 15:02-0500 Diastolic blood pressure 86 mm[Hg] Eric ALLEN [place] 10-28-2022 15:02-0500 Heart rate 70 /min Eric ALLEN [place] 10-28-2022 15:02-0500 Respiratory rate 16 /min Eric ALLEN [place] 10-28-2022 15:02-0500 Systolic blood pressure 122 mm[Hg] Eric ALLEN [employer] [place] Encounters Encounter Date Encounter Type Care Provider Facility Start: 11-26-2022 End: 11-27-2022 ambulatory Eric ALLEN Facility: [facility] Start: 11-19-2022 End: 11-20-[address] ERIC ALLEN . Facility: Start: 10-28-2022 End: 10-29-2022 ambulatory Eric ALLEN Facility: [facility] Start: 10-28-2022 End: 10-28-2022 Patient encounter procedure Eric ALLEN [facility] Start: 10-14-2022 End: 10-14-[address] [...] Immunizations Immunization Date Immunization Notes Care Provider [facility] 08-08-2022 influenza virus vaccine, unspecified formulation Eric ALLEN [facility] [place] 08-17-2021 SARS-CoV-2 (COVID-19 ) mRNA-1271 vaccine Eric ERENDIRAMoises [facility] [place] Comment on above: Result Comment: 2022: [id number] 12-21-2020 SARS-CoV-2 (COVID-19 ) mRNA-1273 vaccine Eric ERENDIRAMoises [facility] [place] 11-23-2020 SARS-CoV-2 (COVID-19 ) mRNA-1273 vaccine Eric NILL [facility] Payers Date Payer Category Payer Unknown [id number] 2.16.84 [id number] 1965 Unknown [id number] 2.16.84 [id number] 1965 Unknown [id number] 2.16.84 [id number] 1965 Unknown [id number] 2.16.84 [id number] 1965 Unknown [id number] 2.16.84 [id number] 1965 Unknown [id number] 2.16.84 [id number] 1965 Unknown [id number] 2.16.8 [id number] 1965 Unknown [id number] 2.16.8 [id number] 1965 Unknown [id number] 2.16.8 [id number] 1957 Unknown [id number] Social History Date Type Detail Facility Start: 10-28-2022 Tobacco smoking status Never s moked tobacco (finding) [facility] Tobacco smoking status Never Gener al [facility] Sex Assigned At Female [facility] Functional Status Date Assessment Result Facility 10-28-2022 Functional Status N/A [facility] [place] Clinical Note 11-19-2022 Note Date & Type [...] 2 mL. CC: Horacio San M.D. [facility] Clinical Note 10-28-2022 Note Date & [...] plan excisional biopsy under local anesthesia at [facility], informed consent obtained. Follow-up No qualifying [...] Recorded SARS-CoV-2 (COVID-19) mRNA-1273 vaccine 11/23/2020 Recorded [facility] Comment on above: Result Comment: Elec tronically Signed By: LISBETH TERESA, Eric Fierro\Date and Time Signed: 10/28/22 15:34 EST Evaluation + Plan note Note Date & Type Note Facility Evaluation + Plan note No data available for this section [facility] [place] [facility] Discharge instructions Note Date & Type Note Facility Hospital Discharge instructions No data available for this section General [facility] [place] Progress note Note Date & Type Note Facility Progress note No data available for this section [facility] [place] Summary Purpose Family History No Family History Records FoundNo Family History Records Found Advance Directives No Advanced Directives Records FoundNo Advanced Directives Records Found Additional Source Comments Patient Care team informatio n (unrecognized section and content) Personnel Name: Horacio San MD Address: Address: [address] [place] [address] INFORMATION SOURCE (unrecogn ized section and content) DATE CREATED AUTHOR 12/05/2022 [facility] DATE CREATED AUTHOR AUTHOR'S TAE WASHINGTON 12/14/2022 [facility] FOR RECORDS PERTAINING TO PATIENTS WHO ARE [...] BE BASED ON THE PRIMARY CLINICAL RECORDS. [facility] [employer] [facility]. provides no warranty or guarantee of the accuracy or completeness of information in this document.
== END 2024-07-05 19:23 | disposition home or self-care (01) ==
LOC: LAB 19:22
PROVIDERS: PCP Family Medicine; Visit Provider Obstetrics & Gynecology
DX: Z01.419 Encounter for gynecological examination (general) (routine) without abnormal findings (principal)
CPT/HCPCS: 87624; 88175

== ENCOUNTER 2024-07-11 07:51 | Outpatient (OUT) | payer OTHER, SELFPAY ==
--- NOTE | 2024-07-11 07:53 | XR_ITS ---
[address] [address] Patient Name: FANG OBRIEN MRN: [id number] date: 1965 Sex: F Assigned Patient Location: [facility] Current Patient Location: Accession/Order Number: [id number] Exam Date: 07/11/2024 07:58 Report Date: 07/12/2024 10:24 At the request of: TRICIA VELASQUEZ Procedure: XR DEXA axial skeleton EXAMINATION: XR DEXA axial skeleton HISTORY: Surgical Menopause COMPARISON: DEXA bone densitometry 06/13/2022 TECHNIQUE: Dual-energy X-ray absorptiometry (DXA) was performed. FINDINGS: SPINE ANALYSIS: Average bone mineral density is 1.316 g/cm2. T-score (standard deviation relative to young adult mean): 1.1 . -7.7% change since prior study. HIP ANALYSIS: Lowest bone mineral density is within the left femoral neck, 0.844 g/cm2. T-score (standard deviation relative to young adult mean): -1.4 . -7.6% change since prior study. XR/XR DEXA axial skeleton IMPRESSION: World Health Organization Classification: Osteopenia - Moderate Fracture Risk FRAX: Cannot calculate. Pharmacologic treatment recommendations * No uniform recommendation applies to all patients. Management plans must be individualized. * Consider initiating pharmacologic treatment in postmenopausal women and men >= 50 years of age who have the following: Primary fracture prevention: * T-score <= - 2.5 at the femoral neck, total hip, lumbar spine, 33% radius (some uncertainty with existing data) by DXA. * Low bone mass (osteopenia: T-score between - 1.0 and - 2.5) at the femoral neck or total hip by DXA with a 10-year hip fracture risk >= 3% or a 10-year major osteoporosis-related fracture risk >= 20% (i.e., clinical vertebral, hip, forearm, or proximal humerus) based on the [place]-adapted FRAXregistered model. Secondary fracture prevention: * Fracture of the hip or vertebra regardless of BMD [4, 5]. * Fracture of proximal humerus, pelvis, or distal forearm in persons with low bone mass (osteopenia: T-score between - 1.0 and - 2.5). The decision to treat should be individualized in persons with a fracture of the proximal humerus, pelvis, or distal forearm who do not have osteopenia or low BMD [12, 13]. Xiang MS, Robert SL, Liseth KL, Ezequiel EM, Yomaira KG, AJ, Natalie ES. The clinician's guide to prevention and treatment of osteoporosis. Osteoporos Int. 2021;33(10):0231-2020. doi: 10.1007/y81301-849-62683-i. Epub 2021Jan 09. Erratum in: Osteoporos Int. 2021Apr 10;: PMID: [id number]; PMCID: [id number]. Electronically authenticated by: CHARLIE BAE Date: 07/12/2024 10:24
--- OUTSIDE RECORDS SUMMARY | 2024-07-11 07:54 | XMS_ITS | CCD ---
Author Organization [facility] Care Team Providers Care Forest Pathologist Name Role Phone Horacio San Primary Care Physician [phone] VIRA ., DR CLARKE Consulting Unavailable VIRA ., DR CLARKE Attending Unavailable VIRA ., DR CLARKE Admitting Unavailable HOY ., [...] Unavailable NILL ., DR REYES Consulting Unavailable VIRA ., DR CLARKE Admitting Unavailable GRYGLA, DR BARBARA Lloyd Consulting Unavailable VIRA ., DR CLARKE Attending Unavailable HOY ., DR LEONARD Primary Care Unavailable VIRA ., DR CLARKE Consulting Unavailable Barbara Atkins Consulting Unavailable VIRA ., DR CLARKE Consulting Unavailable VIRA ., DR CLARKE Admitting Unavailable VIRA ., DR CLARKE Attending Unavailable HOY ., DR LEONARD Primary Care Unavailable NILLEric Attending Unavailable NILLEric Attending Unavailable NILLEric Attending Unavailable Syedy Horacio TERESA Primary Care Provider [phone] Allergies Allergy Classification Reported Allergen(s) Allergy Type Date of Onset Reaction(s) Facility (3 sources) Penicillin; 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: [penicillin] Drug Allergy Itching (finding) General Surgery Baker (3 sources) Penicillins Drug Allergy 3 Hives, Itching [facility] Medications Current Medications Medication Drug Class(es) Dates Sig (Normalized) Sig (Original) aspirin 81 mg delayed release oral tablet (4 sources) Platelet Aggregation Inhibitor, Nonsteroidal Anti-inflammatory Drug Start: 10-28-2022 aspirin 81 MG EC tablet Take 81 mg by mouth. 10/28/2022 Active Calcium Carb-Cholecalciferol (CALCIUM 1000 + D PO) (2 sources) take 1 tablet by mouth once daily Calcium Carb-Cholecalciferol (CALCIUM 1000 + D PO) Take 1 tablet by mouth Daily Active Cholecalciferol (2 sources) Vitamin D take 1 tablet by mouth once daily cholecalciferol (Vitamin D-3) 20 MCG (800 UNIT) tablet Take 800 Units by mouth Daily Active diclofenac sodium 75 mg delayed release oral tablet (4 sources) Nonsteroidal Anti-inflammatory Drug Start: 10-22-2022 take 1 tablet by mouth twice daily diclofenac sodium 75 mg Oral EC Tab 75 mg = 1 tab(s), Oral, BID, Refills(s) 0 Start Date: 10/22/22 Status: Ordered take 1 tablet by mouth once krzysztof y diclofenac (Voltaren) 75 MG EC tablet Take 75 mg by mouth Daily Active estrogens, conjugated (penitentiary) 0.625 mg/ml vaginal cream (3 sources) Estrogen Start: 07-31-2023 End: 07-30-2024 Estrogens Conjugated (Premarin) 0.625 MG/GM cream Indications: Vaginal dryness, menopausal Insert 0.625 mg into the vagina at bedtime. 1 g 07/31/2023 07/30/2024 Active Multi Vitamins oral tablet (1 source) Start: 10-28-2022 take 1 tablet by mouth once daily Multi Vitamins oral tablet 1 tab(s), Oral, Daily, Refill(s) 0 Start Date: 10/28/22 Status: Ordered Pediatric Multiple Vit-C-FA (pediatric multivitamin) tablet chewable split tablet (3 sources) Start: 10-28-2022 Pediatric Mult iple Vit-C-FA (pediatric multivitamin) tablet chewable split tablet Take by mouth. 10/28/2022 Active Probiotic Product (PROBIOTIC 10 ULTRA STRENGTH PO) (2 sources) take 1 tablet by mouth once daily Probiotic Product (PROBIOTIC 10 ULTRA STRENGTH PO) Take 1 tablet by mouth Daily Active Completed/Discontinued Medications Medication Drug Class(es) Dates Sig (Normalized) Sig (Original) clobetasol propionate 0.5 mg/ml topical cream (3 sources) Corticosteroid Start: 06-25-2022 End: 07-05-2024 clobetasol (Temovate) 0.05 % cream Apply topically if needed 06/25/2022 07/05/2024 Discontinued Start: 06-25-2022 clobetasol (Te movate) 0.05 % cream APPLY A SMALL AMOUNT TO AFFECTED AREA DAILY FOR 2 WEEKS THEN TWICE A WEEK THEREAFTER 06/25/2022 Active tiZANidine 4 mg oral tablet (3 sources) Central alpha-2 Adrenergic Agonist Start: 01-02-2023 End: 07-05-2024 take 2 tablets by mouth once daily at bedtime tiZANidine (Zanaflex) 4 MG tablet TAKE 2 TABLETS BY MOUTH EVERY DAY AT BEDTIME 01/02/2023 07/05/2024 Discontinued Problems Active Problems Problem Classification Problem Date Documented Date Episodic/Chronic Abdominal hernia (1 source) Umbilical hernia 10-22-2022 Episodic Anxiety disorders (2 sources) Anxiety; 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: [Anxiety disorder, unspecified] Onset: 11-24-2022 10-22-2022 Chronic Complications of surgical procedures or medical care (2 sources) Postsurgical menopause; 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] 07-05-2024 Chronic Deficiency and other anemia (1 source) Anemia, unspecified; 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: [ANEMIA UNSPECIFIED] Onset: 12-04-2022 Episodic Diabetes mellitus without complication (1 source) Hyperglycemia, unspecified; 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: [HYPERGLYCEMIA UNSPECIFIED] Onset: 12-04-2022 Episodic Malaise and fatigue (4 sources) Other fatigue; 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: [OTHER FATIGUE] Onset: 10-13-2022 Episodic Menopausal disorders (2 sources) Vaginal dryness; 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: [Menopausal and female climacteric states] 07-05-2024 Chronic Mood disorders (1 source) Depressive disorder 10-22-2022 Chronic Mood disorders (1 source) Mood disorders; 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: [DEPRESSION UNSPECIFIED] Onset: 11-24-2022 Osteoporosis (1 source) Age-related osteoporosis without current pathological fracture; 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: [AGE-REL OSTEOPOR W/O CURR PATH FX] Onset: 06-16-2022 Chronic Other aftercare (1 source) 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; 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: [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 CURRENT USE OF ASPIRIN] Onset: 11-24-2022 Episodic Other aftercare (1 source) Other nursing home (current) drug therapy; 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: [OTH PENITENTIARY CURRENT DRUG THERAPY] Onset: 11-24-2022 Episodic Other [...] conditions (not mental disorders or infectious disease) (16 sources) Encounter for screening for malignant neoplasm [...] Visit Summaryon 0 11-26-2022 Ambulatory Visit Summary SHILPA OBRIEN :1965 Visit Date:11/26/2022 Ambulatory Visit Instructions [...] Lipoma of right thigh Umbilical hernia Normal [facility] General Surgery Office/Clini c Noteon 11-26-2022 General [...] SARS-CoV-2 (COVID-19) mRNA-1273 vaccine 11/23/2020 Recorded Normal [facility] Comment on above: Result Comment: Elec tronically Signed By: LISBETH TERESA, Eric Candelaria\adia\Date and Time Signed: 11/26/22 16:51 EDT Pathology Noteon 11-24-2022 Pathology Note [id number] .[id number]:127 Normal [facility] Operative Reporton Operative Report [id number] .00CD:127 Normal [facility] Consent for Procedure/Surger yon 10-29-2022 Consent for Procedure/Surgery [id number] .[id number]:127 Normal [facility] Facesheeton 10-29-2022 Facesheet [id number] .00CD:127 Normal [facility] Ambulatory Visit Summaryon 0 10-28-2022 Ambulatory Visit Summary SHILPA OBRIEN :1965 Visit Date:10/28/2022 Ambulatory Visit Instructions Your Diagnosis Lipoma of right thigh Your Care Team Attending Physician - LISBETH TERESA, Eric Candelaria Primary Care Physician - Mena TERESA, Horacio This Is Your Medications List Contact prescribing [...] Lipoma of right thigh Umbilical hernia Normal [facility] Physician Referralon 023 Physician Referral [id number] .[id number]:127 Normal [facility] INSULINon 10-14-2022 Insulin 6.7 uIU/mL Normal 2.6-24.9 The [facility] Comment on above: Performed By: #### I NSNALLELY #### [facility] [address] [place], [place] [address] Dr. Jay MORGAN BLD IMMUNO SCREENon 09-16 OCCULT BLOOD Negative Normal NEGATIVE [facility] Comment on above: Performed By: #### O BSCRN ####[facility] [address] [place] [id number] Cortes CBC AUTO DIFFon 10-13-2022 BASO # 0.0 103/ul Normal 0.0-0.1 [facility] Comment on above: Performed By: #### C BC ####[facility] [address] [place] [address]DrBrad Cortes Basophils/100 WBC (Bld) 1.0 % Normal 0.2-2.0 [facility] Comment on above: Performed By: #### C BC ####[facility] [address] [place], [place] [address]Dr. Jay Cortes EO # 0.1 103/ul Normal 0.0-0.7 [facility] Comment on above: Performed By: #### C BC ####[facility] [address] [place], [place] [address]Dr. Jay Cortes Eosinophils/100 WBC (Bld) 2.3 % Normal 0.9-7.0 [facility] Comment on above: Performed By: #### C BC ####[facility] [address] [place] [address]DrBrad Cortes Erythrocyte distribution width (RBC) [Ratio] 12.7 % Normal 11.0-15.0 [facility] Comment on above: Performed By: #### C BC ####[facility] [address] [place], [place] [id number] Cortes Hematocrit (Bld) [Volume fraction] 39.9 % Normal 36.0-48.0 [facility] Comment on above: Performed By: #### C BC ####[facility] [address] [place] [id number] Cortes Hemoglobin (Bld) [Mass/Vol] 13.6 g/dL Normal 12.0-16.0 [facility] Comment on above: Performed By: #### C BC ####[facility] [address] [place] [address]Dr. Jay Cortes IG # 0.01 10e3/ul Normal 0.00-0.03 [facility] Comment on above: Performed By: #### C BC ####[facility] [address] [place] [address]Dr. Jay Cortes IG % 0.3 % Normal 0.0-0.5 [facility] Comment on above: Performed By: #### C BC ####[facility] [address] [place], [place] [address]Dr. Jay Cortes LYMPH # 1.4 103/ul Normal 1.2-3.8 The [facility] Comment on above: Performed By: #### C BC ####[facility] [address] [place], [place] [address]Dr. Jay Cortes Lymphocytes/100 WBC (Bld) 34.3 % Normal 20.5-60.0 [facility] Comment on above: Performed By: #### C BC ####[facility] [address] [place] [address]Dr. Jay Cortes MANUAL DIFF REQ NO Normal [facility] Comment on above: Performed By: #### C BC ####[facility] [address] [place] [address]Dr. Jay Cortes MCH (RBC) [Entitic mass] 30.6 pg Normal 26.7-34.0 [facility] Comment on above: Performed By: #### C BC ####[facility] [address] [place] [address]Dr. Jay Cortes MCHC (RBC) [Mass/Vol] 34.1 g/dL Normal 29.9-35.2 The [facility] Comment on above: Performed By: #### C BC ####[facility] [address] [place] [address]Dr. Jay Cortes MCV (RBC) [Entitic vol] 89.7 fL Normal 81.0-99.0 The [facility] Comment on above: Performed By: #### C BC ####[facility] [address] [place] [id number]. Jay Cortes MONO # 0.3 103/ul Normal 0.3-0.8 The [facility] Comment on above: Performed By: #### C BC ####[facility] [address] [place] [id number]. Jay Cortes Monocytes/100 WBC (Bld) 6.3 % Normal 1.7-12.0 [facility] Comment on above: Performed By: #### C BC ####[facility] [address] [place], [place] [address]Dr. Jay Cortes NEUT # 2.2 103/ul Normal 1.4-6.5 The [facility] Comment on above: Performed By: #### C BC ####[facility] [address] [place], [place] [address]Dr. Jay Cortes Neutrophils/100 WBC (Bld) 55.8 % Normal 43.0-75.0 The [facility] Comment on above: Performed By: #### C BC ####[facility] [address] [place], [place] [address]Dr. Jay Cortes Platelet mean volume (Bld) [Entitic vol] 10.0 fL Normal 9.5-13.5 The [facility] Comment on above: Performed By: #### C BC ####[facility] [address] [place] [address]Dr. Jay Cortes PLT 265 103/ul Normal 150-450 The [facility] Comment on above: Performed By: #### C BC ####[facility] [address] [place], [place] [address]Dr. Jay Cortes RBC 4.45 106/ul Normal 4.20-5.40 The [facility] Comment on above: Performed By: #### C BC ####[facility] [address] [place], [place] [id number]. Jay Cortes WBC 4.0 103/ul Normal 4.0-11.0 The [facility] Comment on above: Performed By: #### C BC ####[facility] [address] [place] [address]Dr. Jay Cortes FREE THYROXINE INDEX T7on FTI 2.49 Normal 1.30-4.50 [facility] Comment on above: Performed By: #### C MP, LIPID, TSH, T7 #### [facility] [address] [place] [address] [address] Jay Cortes T3U 35.0 % Normal 30.0-39.0 [facility] Comment on above: Performed By: #### C MP, LIPID, TSH, T7 #### [facility] [address] [place] [address] [address] Jay Cortes T4 [Mass/Vol] 7.10 ug/dL Normal 4.80-13.90 [facility] Comment on above: Performed By: #### C MP, LIPID, TSH, T7 #### [facility] [address] [place] [address] Dr. Jay Cortes GLYCOHEMOGLOBIN A1Con 2022 ADA RECOMMENDATION SEE BELOW Normal [facility] Comment on above: Result Comment: ADA RECOMMENDED LIMIT 4.0 - 6.0 ADA THERAPEUTIC TARGET < 7.0 ACTION SUGGESTED > 7.0 Performed By: #### A 1C #### [facility] [address] [place] [address] Dr. Jay Cortes Glucose [Mass/Vol] 105 mg/dL Normal [facility] Comment on above: Performed By: #### A 1C #### [facility] [address] [place] [address] Dr. Jay Cortes HbA1c (Bld) [Mass fraction] 5.3 % Normal 4.5-6.2 [facility] Comment on above: Performed By: #### A 1C #### [facility] [address] [place] [address] Dr. Jay Cortes IRONon 10-13-2022 Iron [Mass/Vol] 90.0 ug/dL Normal 50.0-170.0 [facility] Comment on above: Performed By: #### I ALANA ####[facility] [address] [place], [place] [address]BbDr. Jay Cortes LIPID PROFILEon 10-13-2022 CHOL-HDL RATIO NORM SEE BELOW Normal [facility] Comment on above: Result Comment: 3.3 - 4.4 LOW RISK 4.4 - 7.1 AVERAGE RISK 7.1 - 11.0 MODERATE RISK >11.0 HIGH RISK Performed By: #### C MP, LIPID, TSH, T7 #### [facility] [address] [place] [address] [address] Jay Cortes Cholesterol [Mass/Vol] 175 mg/dL Normal <=200 [facility] Comment on above: Performed By: #### C MP, LIPID, TSH, T7 #### [facility] [address] [place] [address] [address] Jay Cortes Cholesterol in HDL [Mass/Vol] 72 mg/dL Critically high 40-60 [facility] Comment on above: Performed By: #### C MP, LIPID, TSH, T7 #### [facility] [address] [place] [address] [address] Jay Cortes Cholesterol in LDL [Mass/Vol] 88.0 mg/dL Normal [facility] Comment on above: Performed By: #### C MP, LIPID, TSH, T7 #### [facility] [address] [place] [address] [address] Jay Cortes Cholesterol.total/Cho lesterol in HDL [Mass ratio] 2.4 {ratio} Normal [facility] Comment on above: Performed By: #### C MP, LIPID, TSH, T7 #### [facility] [address] [place] [address] [address] Jay Cortes HDL NORMAL > or = 60 mg/dl - LO W CARDIOVASCULAR RISK <40 mg/dl - HIGH CARDIOVASCULAR RISK Normal [facility] Comment on above: Performed By: #### C MP, LIPID, TSH, T7 #### [facility] [address] [place] [address] [address] Jay Cortes LDL CALC NORMAL SEE BELOW Normal [facility] Comment on above: Result Comment: <100 mg/dl OPTIMAL 100 - 129 mg/dl NEAR OR ABOVE OPTIMAL 130 - 159 mg/dl BORDERLINE HIGH 160 - 189 mg/dl HIGH >190 mg/dl VERY HIGH Performed By: #### C MP, LIPID, TSH, T7 #### [facility] [address] [place] [address] [address] Jay Cortes Triglyceride [Mass/Vol] 75 mg/dL Normal <=150 [facility] Comment on above: Performed By: #### C MP, LIPID, TSH, T7 #### [facility] [address] [place] [address] [address] Jay Cortes VLDL CALC 15.0 mg/dL Normal [facility] Comment on above: Performed By: #### C MP, LIPID, TSH, T7 #### [facility] [address] [place] [address] Dr. Jay Cortes PROF 14(COMP METB)on 023 Albumin [Mass/Vol] 4.1 g/dL Normal 3.4-5.0 [facility] Comment on above: Performed By: #### C MP, LIPID, TSH, T7 #### [facility] [address] [place] [address] Dr. Jay Cortes Albumin/Globulin [Mass ratio] 1.2 {ratio} Normal [facility] Comment on above: Performed By: #### C MP, LIPID, TSH, T7 #### [facility] [address] [place] [address] Dr. Jay Cortes ALP [Catalytic activity/Vol] 51 U/L Normal 46-116 [facility] Comment on above: Performed By: #### C MP, LIPID, TSH, T7 #### [facility] [address] [place] [address] Dr. Jay Cortes ALT [Catalytic activity/Vol] 23 U/L Normal 14-59 [facility] Comment on above: Performed By: #### C MP, LIPID, TSH, T7 #### [facility] [address] [place] [address] Dr. Jay Cortes Anion gap [Moles/Vol] 11.4 mmol/L Normal [facility] Comment on above: Performed By: #### C MP, LIPID, TSH, T7 #### [facility] [address] [place], [place] [address] Dr. Jay Cortes AST [Catalytic activity/Vol] 12 U/L Critically low 15-37 [facility] Comment on above: Performed By: #### C MP, LIPID, TSH, T7 #### [facility] [address] [place] [address] Dr. Jay Cortes Bilirubin [Mass/Vol] 0.3 mg/dL Normal 0.2-1.0 [facility] Comment on above: Performed By: #### C MP, LIPID, TSH, T7 #### [facility] [address] [place] [address] Dr. Jay Cortes Calcium [Mass/Vol] 8.9 mg/dL Normal 8.5-10.1 [facility] Comment on above: Performed By: #### C MP, LIPID, TSH, T7 #### [facility] [address] [place] [address] Dr. Jay Cortes Chloride [Moles/Vol] 104 mmol/L Normal 98-107 [facility] Comment on above: Performed By: #### C MP, LIPID, TSH, T7 #### [facility] [address] [place] [address] Dr. Jay Cortes CO2 [Moles/Vol] 29.5 mmol/L Normal 21.0-32.0 [facility] Comment on above: Performed By: #### C MP, LIPID, TSH, T7 #### [facility] [address] [place] [address] Dr. Jay Cortes Creatinine [Mass/Vol] 0.60 mg/dL Normal 0.55-1.02 [facility] Comment on above: Performed By: #### C MP, LIPID, TSH, T7 #### [facility] [address] [place] [address] Dr. Jay Cortes EGFR-AF PERUVIAN >60 Normal >=60 [facility] Comment on above: Performed By: #### C MP, LIPID, TSH, T7 #### [facility] [address] [place] [address] Dr. Jay Cortes EGFR-NON AF PERUVIAN >60 Normal >=60 [facility] Comment on above: Performed By: #### C MP, LIPID, TSH, T7 #### [facility] [address] [place] [address] [address] Jay Cortes Globulin (S) [Mass/Vol] 3.3 g/dL Normal [facility] Comment on above: Performed By: #### C MP, LIPID, TSH, T7 #### [facility] [address] [place] [address] Dr. Jay Cortes Glucose [Mass/Vol] 103 mg/dL Normal 74-[address] [facility] Comment on above: Performed By: #### C MP, LIPID, TSH, T7 #### [facility] [address] [place] [address] Dr. Jay Cortes Potassium [Moles/Vol] 3.9 mmol/L Normal 3.5-5.1 [facility] Comment on above: Performed By: #### C MP, LIPID, TSH, T7 #### [facility] [address] [place] [address] Dr. Jay Cortes Protein [Mass/Vol] 7.4 g/dL Normal 6.4-8.[address] [facility] Comment on above: Performed By: #### C MP, LIPID, TSH, T7 #### [facility] [address] [place] [address] Dr. Jay Cortes Sodium [Moles/Vol] 141 mmol/L Normal 136-[address] [facility] Comment on above: Performed By: #### C MP, LIPID, TSH, T7 #### [facility] [address] [place] [address] Dr. aJy Cortes Urea nitrogen [Mass/Vol] 15.0 mg/dL Normal 7.0-18.0 [facility] Comment on above: Performed By: #### C MP, LIPID, TSH, T7 #### [facility] [address] [place] [address] Dr. Jay Cortes Urea nitrogen/Creatinine [Mass ratio] 25.0 mg/mg Normal [facility] Comment on above: Performed By: #### C MP, LIPID, TSH, T7 #### [facility] [address] [place] [address] Dr. Jay Cortes TSHon 10-13-2022 TSH 0.941 uIU/mL Normal 0.358-3.740 [facility] Comment on above: Performed By: #### C MP, LIPID, TSH, T7 #### [facility] [address] [place] [address] [address] Jay Cortes VAGINITIS/VAGINOSIS DNA PROB Tarun 06-27-2022 Wendy species Negative Normal Negative [facility] Comment on above: Performed By: #### V AGINT #### [facility] [address] [place] [address] [address] Jay Cortes Gardnerella vaginalis Negative Normal Negative [facility] Comment on above: Performed By: #### V AGINT #### [facility] [address] [place] [address] [address] Jay Cortes Trichomonas vaginalis Negative Normal Negative [facility] Comment on above: Performed By: #### V AGINT #### [facility] [address] [place] [address] [address] Jay Cortes PAP ACOG PANEL 2: 30 to 65on 06-22-2022 . . Normal [facility] Comment on above: Result Comment: Perf ormed at: WB Performed By: #### 4 [id number] ####[facility] [address] [place] [address]Dr. Jay Cortes Age Gdln ACOG Testing 30-65 Normal [facility] Comment on above: Performed By: #### 4 [id number] ####[facility] [address] [place] [address]Dr. Jay Cortes DIAGNOSIS: Comment Normal [facility] Comment on above: Result Comment: NEGA TIVE FOR INTRAEPITHELIAL LESION OR MALIGNANCY. Performed at: WB Performed By: #### 4 [id number] ####[facility] [address] [place] [address]Dr. Jay Cortes HPV Aptima Negative Normal Negative [facility] Comment on above: Result Comment: This nucleic acid amplification test detects fourteen high-risk HPV types (16,18,31,33,35,39,45,51,52,56,58,59,66,68) without differentiation. Performed at: =G Performed By: #### 4 [id number] ####[facility] [address] [place] [address]Dr. Jay Cortes Methodology: Comment Normal [facility] Comment on above: Result Comment: This liquid based ThinPrep(R) pap test was screened with the use of an image guided system. Performed at: WB Performed By: #### 4 [id number] ####[facility] [address] [place] [address]Dr. Jay Cortes Note: Comment Normal [facility] Comment on above: Result Comment: The Pap smear is a screening test designed to aid in the detection of premalignant and malignant conditions of the uterine cervix. It is not a diagnostic procedure and should not be used as the sole means of detecting cervical cancer. Both false-positive and false-negative reports do occur. . Performed at: WB Performed By: #### 4 [id number] ####[facility] [address] [place], [place] [address]Dr. Jay Cortes Performed by: Comment Normal [facility] Comment on above: Result Comment: Annalise Tubbs, [employer] (ASCP) Performed at: WB Performed By: #### 4 [id number] ####[facility] [address] [place], [place] [address]Dr. Jay Cortes Specimen adequacy: Comment Normal [facility] Comment on above: Result Comment: Sati sfactory for evaluation. No endocervical cells are present. This is consistent with a history of hysterectomy. Performed at: WB Performed By: #### 4 [id number] ####[facility] [address] [place] [address]Dr. Jay Cortes MG MAMM SCREEN 3D MIGUEL CADon 06-13-2022 MG MAMM SCREEN 3D MIGUEL CAD Patient: SHILPA OBRIEN Exam Date: 06/13/2022 : 1965 Gender:F Ordering : DR TRICIA CONSTANTINO . Admission #: [id number] Family : Order #: [id number] CLICK HERE TO VIEW EXAM RADIOLOGY REPORT [...] No Treatments None Family Cancers None [facility] [facility] BREAST COMPOSITION: Heterogeneously dense,which may obscure [...] Martinez MD on 06/13/2022 at 09:10 Normal [facility] XR DEXA BONE DENSITYon 06-13 XR DEXA BONE DENSITY DEXA Bone Density Study CLINICAL: Evaluate bone mineral density. Postmenopausal COMPARISON: 06/11/2020 FINDINGS: The bone density study was assessed by dual-energy x-ray absorptiometry with the [employer] scanner. The test results are expressed in [...] by: BARBARA ATKINS Date: 2022-06-13 08:30 Normal [facility] Vital Signs Date Time Vital Sign Value Performing Clinician Facility 07-05-2024 14:27-040 Body height 170.2 cm [employer] Phone: [facility] 07-05-2024 14:-0400 Body mass index (BMI) [Ratio] 23.15 kg/m2 [employer] Phone: [facility] 07-05-2024 14:27-040 Body weight 67.04 kg [employer] Phone: [facility] 07-05-2024 14:27-0400 Diastolic blood pressure 80 mm[Hg] Tricia Vira DO Work Phone: [facility] 07-05-2024 14:27-0400 Systolic blood pressure 118 mm[Hg] Tricia Vira DO Work Phone: [facility] 10-28-2022 15:02-0500 Blood Pressure Location Eric NILL [facility] 10-28-2022 15:02-0500 Diastolic blood pressure 86 mm[Hg] [facility] 10-28-2022 15:02-0500 Heart rate 70 /min Eric NILL [facility] 10-28-2022 15:02-0500 Respiratory rate 16 /min Eric NILL [facility] 10-28-2022 15:02-0500 Systolic blood pressure 122 mm[Hg] Eric NILL [facility] Encounters Encounter Date Encounter Type Care Provider Facility Start: 07-05-2024 End: 07-05-2024 Bamboo flowsheet Tricia Vira DO Work Phone: [facility] Start: 07-05-2024 End: 07-05-2024 Bamboo flowsheet Tricia Vira DO Work Phone: [facility] Start: 07-05-2024 End: 07-05-2024 Patient encounter procedure Tricia Vira DO Work Phone: [facility] Start: 07-05-2024 End: 07-05-2024 Patient encounter status Tricia Vira DO Work Phone: [facility] Start: 07-05-2024 End: 07-05-2024 Periodic preventive med est patient 40-64yrs Tricia Vira DO Work Phone: [facility] Comment on above: Well woman exam with routine gynecological exam; Preventative health care; Encounter for screening mammogram for malignant neoplasm of breast; Surgical menopause; Vaginal dryness, menopausal Start: 11-26-2022 End: 11-27-2022 ambulatory Eric ALLEN Facility:[facility] Start: 11-19-2022 End: 11-20-[address] ERIC ALLEN . Facility: Start: 10-28-2022 End: 10-29-2022 ambulatory Eric ALLEN Facility: [facility] Start: 10-28-2022 End: 10-28-2022 Patient encounter procedure Eric ALLEN [facility] Start: 10-14-2022 End: 10-14-[address] HORACIO SAN . Facility: Start: 10-13-2022 End: 10-14-[address] HORACIO SAN . Facility: Start: 06-25-2022 End: 06-25-[address] TRICIA CONSTANTINO . Facility:[facility] Start: 06-16-2022 End: 06-16-[address] TRICIA CONSTANTINO . Facility: Start: 06-13-2022 End: 06-14-[address] TRICIA CONSTANTINO . Facility: Procedures Date Procedure Procedure Detail Performing Clinician Start: 06-22-2024 Mammography Tricia lopes DO Work Phone: Start: 06-11-2021 Microscopic observat ion [Identifier] in Cervix by Cyto stain Tricia Constantino DO Work Phone: Abdominal hysterectomy Buddy ely ALLEN Colonoscopy Eric ALLEN Repair of umbilical hernia Anjali amado LISBETH Tonsillectomy and adenoidectomy Eric ALLEN Plan of Treatment Date Care Activity Detail Author Start: 06-11-2026 Screening for malignant neoplasm of cervix [facility] Start: 07-13-2025 End: 07-13-2025 Patient encounter procedure 07/13/2025 8:30 AM EDT Office Visit [facility] [address] [place] [address] [place] [address] Tricia Constantino, DO [address] [place] [address] [facility] Start: 06-22-2025 Screening for malignant neoplasm of breast Mammogram [facility] Start: 07-05-2024 End: 07-05-2025 DXA Skeletal system Views for bone density DEXA bone density Imaging Routine Well woman exam with routine gynecological exam Preventative health care Surgical menopause Expected: 07/05/2024 (Approximate), Expires: 07/05/2025 [facility] Comment on above: Expected: 07/05/2024 (Approximate), Expires: 07/05/2025 Start: 07-05-2024 End: 09-04-2025 MG Breast - bilateral Screening Bilateral screening mammogram Imaging Routine Well woman exam with routine gynecological exam Preventative health care Encounter for screening mammogram for malignant neoplasm of breast Expected: 07/05/2024, Expires: 09/04/2025 [facility] Work Phone: Comment on above: Expected: 07/05/2024 , Expires: 09/04/2025 Start: 07-05-2024 End: 07-05-2024 Patient encounter procedure 07/05/2024 2:00 PM EDT Office Visit [facility] [address] [place] [id number] Tricia Constantino, DO [address] [place] [address] Arrived [facility] Comment on above: Arrived Start: 05-15-2024 Influenza vaccination Influenza Vacc ine (#1) [facility] Start: 1965 Screening for malignant neoplasm of colon [facility] THIN PREP TIS PAP AN D HR HPV DNA THIN PREP TIS PAP AND HR HPV DNA Pathology and Cytology Routine Well woman exam with routine gynecological exam Ordered: 07/05/2024 [facility] Comment on above: Ordered: 07/05/2024 Immunizations Immunization Date Immunization Notes Care Provider [facility] 07-27-2023 influenza virus vaccine, unspecified formulation Tricia Constantino DO Work Phone: [facility] 08-08-2022 influenza virus vaccine, unspecified formulation [facility] 08-17-2021 SARS-CoV-2 (COVID-19 ) mRNA-1273 vaccine Eric ALLEN [facility] Comment on above: Result Comment: 2022: [id number] 12-21-2020 SARS-CoV-2 (COVID-19 ) mRNA-1273 vaccine Eric ALLEN [facility] 11-23-2020 SARS-CoV-2 (COVID-19 ) mRNA-1273 vaccine Eric ALLEN [facility] Payers Date Payer Category Payer Private Health Insurance [employer] [id number] 1965 Unknown [id number] 1967 Unknown [id number] 1967 Unknown [id number] [id number] 1967 Unknown [id number] 1967 Unknown [id number] 593 1967 Unknown [id number] 593 1967 Unknown [id number] 1967 Unknown [id number] 1967 Unknown [id number] 1959 Unknown [id number] Social History Date Type Detail Facility Start: 10-28-2022 Tobacco smoking status Never smoked tobacco (finding) [facility] Tobacco smoking status Never [facility] Sex Assigned At Female [facility] Tobacco smoking stat [facility] Tobacco smoking consumption unknown [facility] Start: 1965 Sex assigned at Female [facility] Start: 06-15-2023 Gender identity Identifies as female gender (finding) [facility] Start: 06-15-2023 Sexual orientation Heterosexual (finding) [facility] Functional Status Date Assessment Result Facility 10-28-2022 Functional Status N/A [facility] History of Present illness Narrative 07-05-2024 Selina Tenorio LPN - 07/05/2024 2:00 PM EDT Note Date & Type Note Facility 07-05-2024 History of Presen t illness Narrative Reason for Appointment: Patient ID: Arianna Obrien is a 58 y.o. female who presents for Gynecologic Exam Patient presents today for Annual Exam. MEDICATIONS Current Outpatient Medications Medication Instructions aspirin 81 mg, Oral Calcium Carb-Cholecalciferol (CALCIUM 1000 + D PO) 1 tablet, Oral, Daily cholecalciferol (VITAMIN D-3) 800 Units, Oral, Daily diclofenac (VOLTAREN) 75 mg, Oral, Daily Pediatric Multiple Vit-C-FA (pediatric multivitamin) tablet chewable split tablet Oral Premarin 0.625 mg, Vaginal, Nightly Probiotic Product (PROBIOTIC 10 ULTRA STRENGTH PO) 1 tablet, Oral, Daily ALLERGIES Allergies Allergen Reactions Penicillins Hives and Itching PROBLEMS Active Ambulatory Problems Diagnosis Date Noted Well woman exam with routine gynecological exam 07/05/2024 Preventative health care 07/05/2024 Encounter for screening mammogram for malignant neoplasm of breast 07/05/2024 Resolved Ambulatory Problems Diagnosis Date Noted No Resolved Ambulatory Problems Past Medical History: Diagnosis Date Leiomyoma Visit for review of DEXA scan 2022 Yeast infection HISTORY PAST MEDICAL HISTORY SOCIAL HISTORY Past Medical History: Diagnosis Date Leiomyoma Visit for review of DEXA scan 2022 neg. no osteoporsis Yeast infection Social History Tobacco Use Smoking status: Not on file Smokeless tobacco: Not on file Substance Use Topics Alcohol use: Not on file Drug use: Not on file FAMILY HISTORY No family history on file. SURGICAL HISTORY Past Surgical History: Procedure Laterality Date DILATION AND CURETTAGE HERNIA REPAIR HYSTERECTOMY PAP SMEAR 06/11/2021 Negative TONSILLECTOMY REVIEW OF SYSTEMS Review of Systems: Review of Systems Constitutional: Negative. HENT: Negative. Eyes: Negative. Respiratory: Negative. Cardiovascular: Negative. Gastrointestinal: Negative. Genitourinary: Negative. Musculoskeletal: Negative. Skin: Negative. Neurological: Negative. All other systems reviewed and are negative. Hematological: Negative. Endocrine: Negative. Allergic/Immunologic: Negative. OBJECTIVE Objective: Physical Exam Constitutional: Appearance: Normal appearance. She is well-developed. Genitourinary: Vulva normal. Vaginal cuff intact. Cervix is absent. Uterus is absent. Breasts: Breasts are soft. Right: Normal. Left: Normal. Cardiovascular: Rate and Rhythm: Normal rate and regular rhythm. Pulmonary: Effort: Pulmonary effort is normal. Breath sounds: Normal breath sounds. Abdominal: General: Bowel sounds are normal. There is no distension. Palpations: Abdomen is soft. Tenderness: There is no abdominal tenderness. There is no guarding or rebound. Musculoskeletal: General: No swelling. Normal range of motion. Right lower leg: No edema. Left lower leg: No edema. Neurological: Mental Status: She is alert and oriented to person, place, and time. Skin: General: Skin is warm and dry. Psychiatric: Mood and Affect: Mood normal. Behavior: Behavior normal. Vitals and nursing note reviewed. Exam conducted with a hot die picker present. Vitals: Estimated body mass index is 23.15 kg/m as calculated from the following: Height as of this encounter: 5' 7 . Weight as of this encounter: 147 lb 12.8 oz. BP: 118/80 No LMP recorded (lmp unknown). Patient has had a hysterectomy. ASSESSMENT & PLAN ICD-10-CM 1. Well woman exam with routine gynecological exam Z01.419 Bilateral screening mammogram DEXA bone density THIN PREP TIS PAP AND HR HPV DNA Bilateral screening mammogram 2. Preventative health care Z00.00 Bilateral screening mammogram DEXA bone density Bilateral screening mammogram 3. Encounter for screening mammogram for malignant neoplasm of breast Z12.31 Bilateral screening mammogram Bilateral screening mammogram 4. Surgical menopause E89.40 DEXA bone density 5. Vaginal dryness, menopausal N95.1 Annual: Patient presents today for an annual exam. Patient states she is doing well and has no complaints. Pap was obtained without difficulty and patient given mammogram order to have scheduled/obtained. Orders Placed This Encounter Procedures Bilateral screening mammogram DEXA bone density Follow Up: Patient is to return in one year for annual unless needed otherwise. Documented by Selina Tenorio LPN on behalf of: Tricia Constantino DO documented in this encounter [facility] Clinical Note 11-19-2022 Note Date & Type [...] 2 mL. CC: Horacio San M.D. [facility] Clinical Note 10-28-2022 Note Date & Type [...] plan excisional biopsy under local anesthesia at [facility], informed consent obtained. Follow-up No qualifying [...] Recorded SARS-CoV-2 (COVID-19) mRNA-1273 vaccine 11/23/2020 Recorded [facility] Comment on above: Result Comment: Elec tronically Signed By: LISBETH TERESA, Eric Candelaria\adia\Date and Time Signed: 10/28/22 15:34 EST Evaluation + Plan note Note Date & Type Note Facility Evaluation + Plan note No data available for this section [facility] Evaluation note Note Date & Type Note Facility Evaluation note Diagnosis Well woman exam with routine gynecological exam Routine gynecological examination Preventative health care Routine general medical examination at a health care facility Encounter for screening mammogram for malignant neoplasm of breast Surgical menopause Vaginal dryness, menopausal documented in this encounter [facility] Discharge instructions Note Date & Type Note Facility Hospital Discharge instructions No data available for this section [facility] Progress note Note Date & Type Note Facility Progress note No data available for this section [facility] Summary Purpose Family History No Family History Records FoundNo Family History Records Found Advance Directives No Advanced Directives Records FoundNo Advanced Directives Records Found Additional Source Comments Patient Care team informatio n (unrecognized section and content) Forest Pathologist Relationship Specialty Start Date End Date Horacio San MD [address] [facility] [place] [address] PCP - General Family Medicine 06/22/23 Forest Pathologist Relationship Specialty Start Date End Date Horacio San MD [address] [place] [address] PCP - General Family Medicine 06/22/23 INFORMATION SOURCE (unrecogn ized section and content) DATE CREATED AUTHOR 12/05/2022 [facility] DATE CREATED AUTHOR AUTHOR'S ORGANIZ ATION 12/14/2022 [facility] Reason for Visit (unrecogniz ed section and content) Reason Comments Gynecologic Exam FOR RECORDS PERTAINING TO PATIENTS WHO ARE [...] BE BASED ON THE PRIMARY CLINICAL RECORDS. [facility] [email or web address]. provides no warranty or guarantee of the accuracy or completeness of information in this document.
== END 2024-07-11 07:52 | disposition home or self-care (01) ==
LOC: RAD 07:51
PROVIDERS: PCP Family Medicine; Visit Provider Obstetrics & Gynecology
DX: Z00.00 Encounter for general adult medical examination without abnormal findings (principal); E89.40 Asymptomatic postprocedural ovarian failure; M85.80 Other specified disorders of bone density and structure, unspecified site
CPT/HCPCS: 77080

== ENCOUNTER 2025-04-04 08:32 | Outpatient (OUT) | payer OTHER, SELFPAY ==
--- OUTSIDE RECORDS SUMMARY | 2025-04-04 08:48 | XMS_ITS | CCD ---
Author Organization [facility] Care Team Providers Care Sidewalk Inspector Name Role Phone Horacio San Primary Care Physician VIRA ., DR CLARKE Consulting Unavailable VIRA [...] Unavailable VIRA ., DR CLARKE Admitting Unavailable NORTON, DR BARBARA Lloyd Consulting Unavailable VIRA ., [...] Unavailable Syedy Horacio TERESA Primary Care Provider [phone] Allergies Allergy Classification Reported Allergen(s) Allergy Type Date of Onset Reaction(s) Facility (3 sources) Penicillin; 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: [penicillin] Drug Allergy Itching (finding) General [facility] [place] (4 sources) Penicillins Drug Allergy 3 Hives, Itching [facility] Medications Current Medications Medication Drug Class(es) Dates Sig (Normalized) Sig (Original) aspirin 81 mg delayed release oral tablet (5 sources) Platelet Aggregation Inhibitor, Nonsteroidal Anti-inflammatory Drug Start: 10-28-2022 aspirin 81 MG EC tablet Take 81 mg by mouth. 10/28/2022 Active Calcium Carb-Cholecalciferol (CALCIUM 1000 + D PO) (3 sources) take 1 tablet by mouth once daily Calcium Carb-Cholecalciferol (CALCIUM 1000 + D PO) Take 1 tablet by mouth Daily Active Cholecalciferol (3 sources) Vitamin D take 1 tablet by mouth once daily cholecalciferol (Vitamin D-3) 20 MCG (800 UNIT) tablet Take 800 Units by mouth Daily Active diclofenac sodium 75 mg delayed release oral tablet (5 sources) Nonsteroidal Anti-inflammatory Drug Start: 10-22-2022 take 1 tablet by mouth twice daily diclofenac sodium 75 mg Oral EC Tab 75 mg = 1 tab(s), Oral, BID, Refills(s) 0 Start Date: 10/22/22 Status: Ordered take 1 tablet by mouth once krzysztof y diclofenac (Voltaren) 75 MG EC tablet Take 75 mg by mouth Daily Active estrogens, conjugated (half-way) 0.625 mg/ml vaginal cream (4 sources) Estrogen Start: 07-31-2023 End: 07-30-2024 Estrogens [...] Vit-C-FA (pediatric multivitamin) tablet chewable split tablet (4 sources) Start: 10-28-2022 Pediatric Mult iple Vit-C-FA (pediatric multivitamin) tablet chewable split tablet Take by mouth. 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 [facility] Comment on above: TESTS RESULT FLAG UN ITS REF RANGE LAB Clinician Provided Cytology Information Source.............Vagina No. of containers..01 ThinPrep Vial Age Chao VILLALOBOS Shilpa... FLAG LEGEND: L-Low Normal,H-High Normal,LL-Alert Low,HH-Alert High <-Panic Low,>-Panic High,A-Abnormal,AA-Critical Abnormal Performed at: 01 =[address] [address] Katie Jimenez MD, HPV APTIMA Negative Negative [facility] Comment on above: This nucleic acid am plification test detects fourteen high- risk HPV types (16,18,31,33,35,39,45,51,52,56,58,59,66,68) without differentiation. Performed at: =[address] [id number] Windows Application Packager: Katie Jimenez MD, Phone: [phone] Performed at: [address] [id number] Windows Application Packager: Katie Jimenez MD, Phone: [phone] IGP, APTIMA HPV, RFX 16/18,45 Note . [facility] Comment on above: TESTS RESULT FLAG UN ITS REF RANGE LAB DIAGNOSIS: 02 NEGATIVE FOR INTRAEPITHELIAL LESION OR MALIGNANCY. Specimen adequacy: 02 Satisfactory for evaluation. Endocervical component may not be distinguished in cases of atrophy. Performed by: 02 [employer] Production Supervisor (ASCP) . 02 Note: Note 02 The Pap smear is a screening test designed to aid in the detection of premalignant and malignant conditions of the uterine cervix. It is not a diagnostic procedure and should not be used as the sole means of detecting cervical cancer. Both false-positive and false-negative reports do occur. Test Methodology: Note 02 This liquid based ThinPrep(R) pap test was screened with the use of an image guided system. HPV Genotype Reflex Note 02 Criteria not met, HPV Genotype not performed. FLAG LEGEND: L-Low Normal,H-High Normal,LL-Alert Low,HH-Alert High <-Panic Low,>-Panic High,A-Abnormal,AA-Critical Abnormal Performed at: [address] [address] Katie Jimenez MD, SPATULA-ALONE VAGINA [facility] Ambulatory Visit Summaryon 0 11-26-2022 Ambulatory Visit Summary IDA OBRIENBrannon Delgadillo :1965 Visit Date:11/26/2022 Ambulatory Visit Instructions Your [...] Lipoma of right thigh Umbilical hernia Normal [facility] General Surgery Office/Clini c Noteon 11-26-2022 [...] SARS-CoV-2 (COVID-19) mRNA-1273 vaccine 11/23/2020 Recorded Normal [facility] Comment on above: Result Comment: Elec tronically Signed By: LISBETH TERESA, Eric Fierro\Date and Time Signed: 11/26/22 16:51 EDT Pathology Noteon 11-24-2022 Pathology Note [id number] .00CD:127 Normal [facility] Operative Reporton Operative Report [id number] .00CD:127 [facility] Consent for Procedure/Surger yon 10-29-2022 Consent for Procedure/Surgery [id number] .00CD:127 Normal [facility] Facesheeton 10-29-2022 Facesheet [id number] .00CD:127 Normal [facility] Ambulatory Visit Summaryon 0 10-28-2022 Ambulatory [...] Lipoma of right thigh Umbilical hernia Normal [facility] Physician Referralon 023 Physician Referral [id number] .00CD:127 Normal [facility] INSULINon 10-14-2022 Insulin 6.7 uIU/mL Normal 2.6-24.9 [facility] Comment on above: Performed By: #### I NSULIN #### [facility] [address] [address] [address] Jay MORGAN BLD IMMUNO SCREENon 09-16 OCCULT BLOOD Negative Normal NEGATIVE [facility] Comment on above: Performed By: #### O BSCRN ####[facility] [address] [id number]. Jay Cortes CBC AUTO DIFFon 10-13-2022 BASO # 0.0 103/ul Normal 0.0-0.1 [facility] Comment on above: Performed By: #### C BC ####[facility] [address] [address]Dr. Jay Sebastian Basophils/100 WBC (Bld) 1.0 % Normal 0.2-2.0 [facility] Comment on above: Performed By: #### C BC ####[facility] [address] [place], [place] [address]Dr. Jay Cortes EO # 0.1 103/ul Normal 0.0-0.7 [facility] Comment on above: Performed By: #### C BC ####[facility] [address] [place], [place] [address]Dr. Jay Sebastian Eosinophils/100 WBC (Bld) 2.3 % Normal 0.9-7.0 [facility] Comment on above: Performed By: #### C BC ####[facility] [address] [place], [place] [address]Dr. Jay Cortes Erythrocyte distribution width (RBC) [Ratio] 12.7 % Normal 11.0-15.0 [facility] Comment on above: Performed By: #### C BC ####[facility] [address] [place], [place] [address]Dr. Jay Cortes Hematocrit (Bld) [Volume fraction] 39.9 % Normal 36.0-48.0 [facility] Comment on above: Performed By: #### C BC ####[facility] [address] [place], [place] [address]Dr. Jay Cortes Hemoglobin (Bld) [Mass/Vol] 13.6 g/dL Normal 12.0-16.0 [facility] Comment on above: Performed By: #### C BC ####[facility] [address] [place], [place] [address]Dr. Conniesabas Cortes IG # 0.01 10e3/ul Normal 0.00-0.03 [facility] Comment on above: Performed By: #### C BC ####[facility] [address] [address]Dr. Conniesabas Cortes IG % 0.3 % Normal 0.0-0.5 [facility] Comment on above: Performed By: #### C BC ####[facility] [address] [address]Dr. Conniesabas Cortes LYMPH # 1.4 103/ul Normal 1.2-3.8 [facility] Comment on above: Performed By: #### C BC ####[facility] [address] [address]Dr. Conniesabas Cortes Lymphocytes/100 WBC (Bld) 34.3 % Normal 20.5-60.0 [facility] Comment on above: Performed By: #### C BC ####[facility] [address] [place], [place] [address]DrBrad Cortes MANUAL DIFF REQ NO Normal [facility] Comment on above: Performed By: #### C BC ####[facility] [address] [id number]. Jay Sebastian MCH (RBC) [Entitic mass] 30.6 pg Normal 26.7-34.0 [facility] Comment on above: Performed By: #### C BC ####[facility] [address] [place], [place] [address]Dr. Jay Sebastian MCHC (RBC) [Mass/Vol] 34.1 g/dL Normal 29.9-35.2 [facility] Comment on above: Performed By: #### C BC ####[facility] [address] [place], [place] [address]DrBrad Conniesabas Cortes MCV (RBC) [Entitic vol] 89.7 fL Normal 81.0-99.0 [facility] Comment on above: Performed By: #### C BC ####[facility] [address] [id number] Cortes MONO # 0.3 103/ul Normal 0.3-0.8 [facility] Comment on above: Performed By: #### C BC ####[facility] [address] [address]Dr. Jay Cortes Monocytes/100 WBC (Bld) 6.3 % Normal 1.7-12.0 [facility] Comment on above: Performed By: #### C BC ####[facility] [address] [id number]. Jay Cortes NEUT # 2.2 103/ul Normal 1.4-6.5 [facility] Comment on above: Performed By: #### C BC ####[facility] [address] [address]Dr. Jay Cortes Neutrophils/100 WBC (Bld) 55.8 % Normal 43.0-75.0 [facility] Comment on above: Performed By: #### C BC ####[facility] [address] [address]Dr. Jay Cortes Platelet mean volume (Bld) [Entitic vol] 10.0 fL Normal 9.5-13.5 [facility] Comment on above: Performed By: #### C BC ####[facility] [address] [address]Dr. Jay Cortes PLT 265 103/ul Normal 150-450 [facility] Comment on above: Performed By: #### C BC ####[facility] [address] [id number]. Jay Cortes RBC 4.45 106/ul Normal 4.20-5.40 [facility] Comment on above: Performed By: #### C BC ####[facility] [address] [id number]. Jay Cortes WBC 4.0 103/ul Normal 4.0-11.0 [facility] Comment on above: Performed By: #### C BC ####[facility] [address] [id number]. Jay Cortes FREE THYROXINE INDEX T7on FTI 2.49 Normal 1.30-4.50 [facility] Comment on above: Performed By: #### C MP, LIPID, TSH, T7 #### [facility] [address] [address] [address] Jay Cortes T3U 35.0 % Normal 30.0-39.0 [facility] Comment on above: Performed By: #### C MP, LIPID, TSH, T7 #### [facility] [address] [address] [address] Jay Cortes T4 [Mass/Vol] 7.10 ug/dL Normal 4.80-13.90 [facility] Comment on above: Performed By: #### C MP, LIPID, TSH, T7 #### [facility] [address] [address] [address] Jay Cortes GLYCOHEMOGLOBIN A1Con 2022 ADA RECOMMENDATION SEE BELOW Normal [facility] Comment on above: Result Comment: ADA RECOMMENDED LIMIT 4.0 - 6.0 ADA THERAPEUTIC TARGET < 7.0 ACTION SUGGESTED > 7.0 Performed By: #### A 1C #### [facility] [address] [address] [address] Jay Cortes Glucose [Mass/Vol] 105 mg/dL Normal [facility] Comment on above: Performed By: #### A 1C #### [facility] [address] [address] [address] Jay Cortes HbA1c (Bld) [Mass fraction] 5.3 % Normal 4.5-6.2 [facility] Comment on above: Performed By: #### A 1C #### [facility] [address] [address] [address] Jay Cortes IRONon 10-13-2022 Iron [Mass/Vol] 90.0 ug/dL Normal 50.0-170.[address] [facility] Comment on above: Performed By: #### I ALANA ####[facility] [address] [address]Dr. Jay Cortes LIPID PROFILEon 10-13-2022 CHOL-HDL RATIO NORM SEE BELOW Normal [facility] Comment on above: Result Comment: 3.3 - 4.4 LOW RISK 4.4 - 7.1 AVERAGE RISK 7.1 - 11.0 MODERATE RISK >11.0 HIGH RISK Performed By: #### C MP, LIPID, TSH, T7 #### [facility] [address] [place] [address] Dr. Jay Cortes Cholesterol [Mass/Vol] 175 mg/dL Normal <=200 [facility] Comment on above: Performed By: #### C MP, LIPID, TSH, T7 #### [facility] [address] [place] [address] Dr. Jay Cortes Cholesterol in HDL [Mass/Vol] 72 mg/dL Critically high 40-60 [facility] Comment on above: Performed By: #### C MP, LIPID, TSH, T7 #### [facility] [address] [place] [address] Dr. Jay Cortes Cholesterol in LDL [Mass/Vol] 88.0 mg/dL Normal [facility] Comment on above: Performed By: #### C MP, LIPID, TSH, T7 #### [facility] [address] [place] [address] Dr. Jay Cortes Cholesterol.total/Ch olesterol in HDL [Mass ratio] 2.4 {ratio} Normal [facility] Comment on above: Performed By: #### C MP, LIPID, TSH, T7 #### [facility] [address] [place] [address] Dr. Jay Cortes HDL NORMAL > or = 60 mg/dl - LO W CARDIOVASCULAR RISK <40 mg/dl - HIGH CARDIOVASCULAR RISK Normal [facility] Comment on above: Performed By: #### C MP, LIPID, TSH, T7 #### [facility] [address] [place] [address] Dr. Jay Cortes LDL CALC NORMAL SEE BELOW Normal [facility] Comment on above: Result Comment: <100 mg/dl OPTIMAL 100 - 129 mg/dl NEAR OR ABOVE OPTIMAL 130 - 159 mg/dl BORDERLINE HIGH 160 - 189 mg/dl HIGH >190 mg/dl VERY HIGH Performed By: #### C MP, LIPID, TSH, T7 #### [facility] [address] [place] [address] Dr. Jay Cortes Triglyceride [Mass/Vol] 75 mg/dL Normal <=150 [facility] Comment on above: Performed By: #### C MP, LIPID, TSH, T7 #### [facility] [address] [place] [address] Dr. Jay Cortes VLDL CALC 15.0 mg/dL Normal [facility] Comment on above: Performed By: #### C MP, LIPID, TSH, T7 #### [facility] [address] [place] [address] Dr. Jay Cortes PROF 14(COMP METB)on 023 Albumin [Mass/Vol] 4.1 g/dL Normal 3.4-5.0 [facility] Comment on above: Performed By: #### C MP, LIPID, TSH, T7 #### [facility] [address] [place] [address] Dr. Jay Cortes Albumin/Globulin [Mass ratio] 1.2 {ratio} Normal [facility] Comment on above: Performed By: #### C MP, LIPID, TSH, T7 #### [facility] [address] [place] [address] Dr. Jay Cortes ALP [Catalytic activity/Vol] 51 U/L Normal 46-116 [facility] Comment on above: Performed By: #### C MP, LIPID, TSH, T7 #### [facility] [address] [place] [address] Dr. Jay Cortes ALT [Catalytic activity/Vol] 23 U/L Normal 14-59 [facility] Comment on above: Performed By: #### C MP, LIPID, TSH, T7 #### [facility] [address] [place] [address] Dr. Jay Cortes Anion gap [Moles/Vol] 11.4 mmol/L Normal [facility] Comment on above: Performed By: #### C MP, LIPID, TSH, T7 #### [facility] [address] [place] [address] Dr. Jay Cortes AST [Catalytic activity/Vol] 12 U/L Critically low 15-37 [facility] Comment on above: Performed By: #### C MP, LIPID, TSH, T7 #### [facility] [address] [address] [address] Jay Cortes Bilirubin [Mass/Vol] 0.3 mg/dL Normal 0.2-1.0 [facility] Comment on above: Performed By: #### C MP, LIPID, TSH, T7 #### [facility] [address] [address] [address] Jay Cortes Calcium [Mass/Vol] 8.9 mg/dL Normal 8.5-10.1 [facility] Comment on above: Performed By: #### C MP, LIPID, TSH, T7 #### [facility] [address] [address] [address] Jay Cortes Chloride [Moles/Vol] 104 mmol/L Normal 98-107 [facility] Comment on above: Performed By: #### C MP, LIPID, TSH, T7 #### [facility] [address] [address] [address] Jay Cortes CO2 [Moles/Vol] 29.5 mmol/L Normal 21.0-32.0 [facility] Comment on above: Performed By: #### C MP, LIPID, TSH, T7 #### [facility] [address] [address] [address] Jay Cortes Creatinine [Mass/Vol] 0.60 mg/dL Normal 0.55-1.02 [facility] Comment on above: Performed By: #### C MP, LIPID, TSH, T7 #### [facility] [address] [address] [address] Jay Cortes EGFR-AF SENEGALESE >60 Normal >=60 [facility] Comment on above: Performed By: #### C MP, LIPID, TSH, T7 #### [facility] [address] [address] [address] Jay Cortes EGFR-NON AF SENEGALESE >60 Normal >=60 [facility] Comment on above: Performed By: #### C MP, LIPID, TSH, T7 #### [facility] [address] [address] [address] Jay Cortes Globulin (S) [Mass/Vol] 3.3 g/dL Normal [facility] Comment on above: Performed By: #### C MP, LIPID, TSH, T7 #### [facility] [address] [address] [address] Jay Cortes Glucose [Mass/Vol] 103 mg/dL Normal 74-106 [facility] Comment on above: Performed By: #### C MP, LIPID, TSH, T7 #### [facility] [address] [address] [address] Jay Cortes Potassium [Moles/Vol] 3.9 mmol/L Normal 3.5-5.1 [facility] Comment on above: Performed By: #### C MP, LIPID, TSH, T7 #### [facility] [address] [place] [address] Dr. Jay Cortes Protein [Mass/Vol] 7.4 g/dL Normal 6.4-8.2 [facility] Comment on above: Performed By: #### C MP, LIPID, TSH, T7 #### [facility] [address] [address] [address] Jay Cortes Sodium [Moles/Vol] 141 mmol/L Normal 136-145 [facility] Comment on above: Performed By: #### C MP, LIPID, TSH, T7 #### [facility] [address] [address] [address] Jay Cortes Urea nitrogen [Mass/Vol] 15.0 mg/dL Normal 7.0-18.0 [facility] Comment on above: Performed By: #### C MP, LIPID, TSH, T7 #### [facility] [address] [place] [address] Dr. Jay Cortes Urea nitrogen/Creatinine [Mass ratio] 25.0 mg/mg Normal [facility] Comment on above: Performed By: #### C MP, LIPID, TSH, T7 #### [facility] [address] [place] [address] Dr. Jay Cortes TSHon 10-13-2022 TSH 0.941 uIU/mL Normal 0.358-3.740 [facility] Comment on above: Performed By: #### C MP, LIPID, TSH, T7 #### [facility] [address] [address] [address] Jay Cortes VAGINITIS/VAGINOSIS DNA PROB Tarun 06-27-2022 Wendy species Negative Normal Negative [facility] Comment on above: Performed By: #### V AGINT #### [facility] [address] [address] [address] Jay Cortes Gardnerella vaginalis Negative Normal Negative [facility] Comment on above: Performed By: #### V AGINT #### [facility] [address] [address] [address] Jay Cortes Trichomonas vaginalis Negative Normal Negative [facility] Comment on above: Performed By: #### V AGINT #### [facility] [address] [address] [address] Jay Cortes PAP ACOG PANEL 2: 30 to 65on 06-22-2022 . . Normal [facility] Comment on above: Result Comment: Perf ormed at: WB Performed By: #### [id number] ####[facility] [address] [address]Dr. Jay Cortes Age Gdln ACOG Testing 30-65 Normal [facility] Comment on above: Performed By: #### 4 [id number] ####[facility] [address] [address]Dr. Jay Cortes DIAGNOSIS: Comment Normal [facility] Comment on above: Result Comment: NEGA TIVE FOR INTRAEPITHELIAL LESION OR MALIGNANCY. Performed at: WB Performed By: #### 4 [id number] ####[facility] [address] [address]Dr. Jay Cortes HPV Aptima Negative Normal Negative [facility] Comment on above: Result Comment: This nucleic acid amplification test detects fourteen high-risk HPV types (16,18,31,33,35,39,45,51,52,56,58,59,66,68) without differentiation. Performed at: =G Performed By: #### 4 [id number] ####[facility] [address] [address]Dr. Jay Cortes Methodology: Comment Normal [facility] Comment on above: Result Comment: This liquid based ThinPrep(R) pap test was screened with the use of an image guided system. Performed at: WB Performed By: #### 4 [id number] ####[facility] [address] [id number] Cortes Note: Comment Normal [facility] Comment on above: Result Comment: The Pap smear is a screening test designed to aid in the detection of premalignant and malignant conditions of the uterine cervix. It is not a diagnostic procedure and should not be used as the sole means of detecting cervical cancer. Both false-positive and false-negative reports do occur. . Performed at: WB Performed By: #### 4 [id number] ####[facility] [address] [address]DrBrad Cortes Performed by: Comment Normal [facility] Comment on above: Result Comment: Annalise Tubbs, Electronics Production Supervisor (ASCP) Performed at: WB Performed By: #### 4 [id number] ####[facility] [address] [id number] Cortes Specimen adequacy: Comment Normal [facility] Comment on above: Result Comment: Sati sfactory for evaluation. No endocervical cells are present. This is consistent with a history of hysterectomy. Performed at: WB Performed By: #### 4 [id number] ####[facility] [address] [id number] Cortes MG MAMM SCREEN 3D MIGUEL CADon 06-13-2022 MG MAMM SCREEN 3D MIGUEL CAD Patient: SHILPA OBRIEN Exam Date: 06/13/2022 : 1965 Gender:F Ordering : DR TRICIA CONSTANTINO . Admission #: [id number] Family : Order #: [id number] CLICK HERE TO VIEW EXAM RADIOLOGY REPORT [...] Treatments None Family Cancers None LOCATION: [facility] BREAST COMPOSITION: Heterogeneously dense,which may obscure small [...] Martinez MD on 06/13/2022 at 09:10 Normal [facility] XR DEXA BONE DENSITYon 06-13 XR DEXA BONE DENSITY DEXA Bone Density Study CLINICAL: Evaluate bone mineral density. Postmenopausal COMPARISON: 06/11/2020 FINDINGS: The bone density study was assessed by dual-energy x-ray absorptiometry with the [employer] scanner. The test results are expressed [...] by: BARBARA ATKINS Date: 2022-06-13 08:30 Normal [facility] Vital Signs Date Time Vital Sign Value Performing Clinician Facility 07-05-2024 14:27-0400 Body height 170.2 cm [employer] Phone: [facility] [employer] 07-05-2024 14:27-0400 Body mass index (BMI) [Ratio] 23.15 kg/m2 [employer] Phone: [facility] [employer] 07-05-2024 14:270400 Body weight 67.04 kg [employer] Phone: [facility] 07-05-2024 14:27-0400 Diastolic blood pressure 80 mm[Hg] [employer] Phone: [facility] [employer] 07-05-2024 14:27-0400 Systolic blood pressure 118 mm[Hg] Tricia Vira DO Work Phone: [facility] 10-28-2022 15:02-0500 Blood Pressure Location Eric KRISHNAL [facility] [place] 10-28-2022 15:02-0500 Diastolic blood pressure 86 mm[Hg] Eric NILL [facility] [place] 10-28-2022 15:02-0500 Heart rate 70 /min Eric NILL [facility] [place] 10-28-2022 15:02-0500 Respiratory rate 16 /min Eric NILL [facility] [place] 10-28-2022 15:02-0500 Systolic blood pressure 122 mm[Hg] Eric KRISHNAL [facility] [place] Encounters Encounter Date Encounter Type Care Provider Facility Start: 07-05-2024 End: 07-05-2024 Bamboo flowsheet Tricia Vira DO Work Phone: [facility] Start: 07-05-2024 End: 07-12-2024 Bamboo flowsheet Tricia Vira DO Work Phone: [facility] Start: 07-05-2024 End: 07-12-2024 Clinisync Result Encounter Tricia Vira DO Work Phone: [facility] External Department Unsolicited Start: 07-05-2024 End: 07-05-2024 Patient encounter procedure Tricia Vira DO Work Phone: [facility] Start: 07-05-2024 End: 07-05-2024 Patient encounter status Tricia Vira DO Work Phone: [facility] Start: 07-05-2024 End: 07-05-2024 Periodic preventive med est patient 40-64yrs Tricia Vira DO Work Phone: [facility] Comment on above: Well woman [...] Patient encounter procedure Eric ALLEN [facility] Start: 10-14-2022 End: 10-14-[address] HORACIO SAN . Facility: Start: 10-13-2022 End: 10-14-[address] HORACIO SAN . Facility: Start: 06-25-2022 End: 06-25-[address] TRICIA CONSTANTINO . Facility:[facility] Start: 06-16-2022 End: 06-16-[address] TRICIA CONSTANTINO . Facility: Start: 06-13-2022 End: 06-14-[address] TRICIA CONSTANTINO . Facility: Procedures Date Procedure Procedure Detail Performing Clinician Start: 07-05-2024 IGP,APTIMA HPV,AGE GDLN Tricia Constantino DO Work Phone: Start: 06-22-2024 Mammography Tricia lopes DO Work Phone: Start: 06-11-2021 Microscopic observat ion [Identifier] in Cervix by Cyto stain Tricia Constantino DO Work Phone: Abdominal hysterectomy Buddy ely ALLEN Colonoscopy Eric ALLEN Repair of umbilical hernia Anjali amado LISBETH Tonsillectomy and adenoidectomy Eric KRISHNAL Plan of Treatment Date Care Activity Detail Author Start: 06-11-2026 Screening for malignant neoplasm of cervix [facility] Start: 07-13-2025 End: 07-13-2025 Patient encounter procedure 07/13/2025 8:30 AM EDT Office Visit [facility] [address] [place] [address] Tricia Constantino, DO [address] [place] [address] [facility] Start: 06-22-2025 Screening for malignant neoplasm of breast Mammogram [facility] Start: 07-05-2024 End: 07-05-2025 DXA Skeletal system Views for bone density DEXA bone density Imaging Routine Well woman exam with routine gynecological exam Preventative health care Surgical menopause Expected: 07/05/2024 (Approximate), Expires: 07/05/2025 [facility] Comment on above: Expected: 07/05/2024 (Approximate), Expires: 07/05/2025 Start: 07-05-2024 End: 09-04-2025 MG Breast - bilateral Screening Bilateral screening mammogram Imaging Routine Well woman exam with routine gynecological exam Preventative health care Encounter for screening mammogram for malignant neoplasm of breast Expected: 07/05/2024, Expires: 09/04/2025 [facility] Work Phone: Comment on above: Expected: 07/05/2024 , Expires: 09/04/2025 Start: 07-05-2024 End: 07-05-2024 Patient encounter procedure 07/05/2024 2:00 PM EDT Office Visit [facility] [address] [place] [phone] Tricia Constantino, DO [address] [place] [address] Arrived [facility] Comment on above: Arrived Start: 05-15-2024 Influenza vaccination Influenza Vacc ine (#1) [facility] Start: 1965 Screening for malignant neoplasm of colon [facility] THIN PREP TIS PAP AN D HR HPV DNA THIN PREP TIS PAP AND HR HPV DNA Pathology and Cytology Routine Well woman exam with routine gynecological exam Ordered: 07/05/2024 [facility] Comment on above: Ordered: 07/05/2024 Immunizations Immunization Date Immunization Notes Care Provider Fa [facility] 07-27-2023 influenza virus vaccine, unspecified formulation Trciia Constantino DO Work Phone: [facility] 08-08-2022 influenza virus vaccine, unspecified formulation Eric ALLEN [facility] [place] 08-17-2021 SARS-CoV-2 (COVID-19 ) mRNA-1273 vaccine Eric ALLEN [facility] [place] Comment on above: Result Comment: 2022: [id number] 12-21-2020 SARS-CoV-2 (COVID-19 ) mRNA-1273 vaccine Eric ALLEN [facility] [place] 11-23-2020 SARS-CoV-2 (COVID-19 ) mRNA-1273 vaccine Eric ALLEN [facility] [place] Payers Date Payer Category Payer Private Health Insurance [employer] [id number] 1965 Unknown [id number] 1965 Unknown [id number]. 593 1967 Unknown [id number]. 593 1967 Unknown [id number]. 593 1967 Unknown [id number]. 593 1967 Unknown [id number]. 593 1965 Unknown [id number] [id number]. 727 1965 Unknown [id number] [id number]. 727 1965 Unknown [id number]. 727 1957 Unknown [id number] Social History Date Type Detail Facility Start: 10-28-2022 Tobacco smoking status Never smoked tobacco (finding) [facility] [place] Tobacco smoking status Never [facility] Sex Assigned At Female [facility] Tobacco smoking stat [facility] Tobacco smoking consumption unknown [facility] Start: 1965 Sex assigned at Female [facility] Start: 06-15-2023 Gender identity Identifies as female gender (finding) [facility] Start: 06-15-2023 Sexual orientation Heterosexual (finding) [facility] Functional Status Date Assessment Result Facility [...] woman exam with routine gynecological exam 07/05/2024 [facility] [address] care 07/05/2024 Encounter for screening mammogram for [...] nursing note reviewed. 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 Vitals: Estimated body mass index is [...] Tricia Constantino DO documented in this encounter [facility] Clinical Note 11-19-2022 Note Date & Type [...] 2 mL. CC: Horacio San M.D. [facility] Clinical Note 10-28-2022 Note Date & Type [...] plan excisional biopsy under local anesthesia at [facility], informed consent obtained. Follow-up No qualifying [...] Recorded SARS-CoV-2 (COVID-19) mRNA-1273 vaccine 11/23/2020 Recorded [facility] Comment on above: Result Comment: Elec tronically Signed By: LISBETH TERESA, Eric Fierro\Date and Time Signed: 10/28/22 15:34 EST Evaluation + Plan note Note Date & Type Note Facility Evaluation + Plan note No data available for this section [facility] [place] Evaluation note Note Date & Type Note [...] data available for this section [facility] [place] Progress note Note Date & Type Note Facility Progress note No data available for this section [facility] [place] Summary Purpose Family History No Family History Records FoundNo Family History Records Found Advance Directives No Advanced Directives Records FoundNo Advanced Directives Records Found Additional Source Comments Patient Care team informatio n (unrecognized section and content) Sidewalk Inspector Relationship Specialty Start Date End Date Horacio San MD [address] [place] [address] PCP - General Family Medicine 06/22/23 Sidewalk Inspector Relationship Specialty Start Date End Date Horacio San MD [address] [place] [address] PCP - General Family Medicine 06/22/23 Sidewalk Inspector Relationship Specialty Start Date End Date Horacio San MD [address] [place] [address] PCP - General Family Medicine 06/22/23 INFORMATION SOURCE (unrecogn ized section and content) DATE CREATED AUTHOR 12/05/2022 [facility] DATE CREATED AUTHOR AUTHOR'S ORGANIZ ATION 12/14/2022 [facility] Reason for Visit (unrecogniz ed section and [...] BE BASED ON THE PRIMARY CLINICAL RECORDS. [facility] [employer] provides no warranty or guarantee of the accuracy or completeness of information in this document.
[2025-04-04 09:14] LABS: Hematocrit 43.3 % (36.0-48.0); Hemoglobin 14.2 g/dL (12.0-16.0); Immature Granulocytes Abs Auto 0.01 10^3/uL (0.00-0.03); Immature Granulocytes Pct Auto 0.3 % (0.0-0.5); Lymphocytes Absolute Auto 1.3 10^3/uL (1.2-3.8); Mean Corpuscular HGB Conc 32.8 g/dL (29.9-35.2); Mean Corpuscular Hemoglobin 30.6 pg (26.7-34.0); Mean Corpuscular Volume 93.3 fL (81.0-99.0); Platelet Count 280 10^3/uL (150-450); Red Blood Count 4.64 10^6/uL (4.20-5.40); White Blood Count 3.8 10^3/uL (4.0-11.0)
[2025-04-04 09:42] LABS: Alanine Aminotransferase 29 U/L (14-59); Albumin Globulin Ratio 1.2; Albumin Level 4.1 g/dL (3.4-5.0); Alkaline Phosphatase 56 U/L (46-116); Anion Gap 13.1; Aspartate Amino Transferase 15 U/L (15-37); Blood Urea Nitrogen 13.0 mg/dL (7.0-18.0); Calcium 9.2 mg/dL (8.5-10.1); Carbon Dioxide 29.6 mmol/L (21.0-32.0); Chloride 105 mmol/L (98-107); Cholesterol 184 mg/dL (<=200); Estimated GFR (African America >60 (>=60 mL/min/1.73m^2); Estimated GFR (Non-African Ame >60 (>=60 mL/min/1.73m^2); Free T3 2.59 pg/mL (2.18-3.98); Globulin 3.3 g/dL; Glucose 99 mg/dL (74-106); HDL Cholesterol 83 mg/dL (40-60); Magnesium 2.2 mg/dL (1.8-2.4); Potassium 3.7 mmol/L (3.5-5.1); Sodium 144 mmol/L (136-145); Thyroid Stimulating Hormone 1.573 uIU/mL (0.358-3.740); Total Protein 7.4 g/dL (6.4-8.2); Triglycerides 52 mg/dL (<=150); VLDL CHOLESTEROL 10.4 mg/dL
[2025-04-04 10:20] LABS: Iron 95.0 ug/dL (50.0-170.0)
== END 2025-04-04 08:33 | disposition home or self-care (01) ==
LOC: LAB 08:35
PROVIDERS: PCP Family Medicine; Visit Provider Family Medicine
DX: Z00.00 Encounter for general adult medical examination without abnormal findings (principal)
CPT/HCPCS: 36415; 80053; 80061; 83036; 83540; 83735; 84436; 84443; 84481; 85025

== ENCOUNTER 2025-04-06 08:39 | Outpatient (OUT) | payer OTHER, SELFPAY ==
--- OUTSIDE RECORDS SUMMARY | 2025-04-06 09:01 | XMS_ITS | CCD ---
Author Organization [facility] Care Team Providers Care [employer] Police Officer Name Role Phone Horacio San Primary Care Physician [phone] VIRA ., DR CLARKE Consulting Unavailable VIRA [...] Unavailable VIRA ., DR CLARKE Admitting Unavailable [place], DR BARBARA Lloyd Consulting Unavailable VIRA ., [...] Unavailable Syedy Horacio TERESA Primary Care Provider [phone] Allergies Allergy Classification Reported Allergen(s) Allergy Type Date of Onset Reaction(s) Facility (3 sources) Penicillin; 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: [penicillin] Drug Allergy Itching (finding) General Surgery [place] (4 sources) Penicillins Drug Allergy 3 Hives, [...] mg by mouth Daily Active estrogens, conjugated (prison) 0.625 mg/ml vaginal cream (4 sources) Estrogen [...] Onset: 06-16-2022 Chronic Other aftercare (1 source) 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 Comment on above: This nucleic acid am plification test detects fourteen high- risk HPV types (16,18,31,33,35,39,45,51,52,56,58,59,66,68) without differentiation. Performed at: =[address] [id number] Cell Installer: Katie Jimenez MD, Phone: [phone] Performed at: [address] [id number] Cell Installer: Katie Jimenez MD, Phone: [phone] IGP, APTIMA HPV, RFX 16/18,[address] [facility] Comment on above: TESTS RESULT FLAG UN ITS REF RANGE LAB DIAGNOSIS: 02 NEGATIVE FOR INTRAEPITHELIAL LESION OR MALIGNANCY. Specimen adequacy: 02 Satisfactory for evaluation. Endocervical component may not be distinguished in cases of atrophy. Performed by: 02 Corby Nails Fly Finisher (ASCP) . 02 Note: Note 02 The [...] <-Panic Low,>-Panic High,A-Abnormal,AA-Critical Abnormal Performed at: [address] [address] Katie Jimenez MD, SPATULA-ALONE VAGINA [facility] Ambulatory Visit Summaryon 0 11-26-2022 Ambulatory Visit [...] Lipoma of right thigh Umbilical hernia Normal [facility] General Surgery Office/Clini c Noteon 11-26-2022 General [...] SARS-CoV-2 (COVID-19) mRNA-1273 vaccine 11/23/2020 Recorded Normal [facility] Comment on above: Result Comment: Elec tronically Signed By: LISBETH TERESA, Eric Fierro\Date and Time Signed: 11/26/22 16:51 EDT Pathology Noteon 11-24-2022 Pathology Note [id number] .00CD:127 Normal [facility] Operative Reporton Operative Report [id number] .00CD:127 [facility] Consent for Procedure/Surger yon 10-29-2022 Consent for Procedure/Surgery [id number] .[id number]:127 Normal [facility] Facesheeton 10-29-2022 Facesheet [id number] .00CD:127 Normal [facility] Ambulatory Visit Summaryon 0 10-28-2022 Ambulatory Visit [...] Lipoma of right thigh Umbilical hernia Normal [facility] Physician Referralon 023 Physician Referral [id number] .[id number]:127 Normal [facility] INSULINon 10-14-2022 Insulin 6.7 uIU/mL Normal 2.6-24.9 [facility] Comment on above: Performed By: #### I NSULIN #### [facility] [address] [address] [address] Jay MORGAN BLD IMMUNO SCREENon 09-16 OCCULT BLOOD Negative Normal NEGATIVE [facility] Comment on above: Performed By: #### O BSCRN ####[facility] [address] [id number]. Jay Cortes CBC AUTO DIFFon 10-13-2022 BASO # 0.0 103/ul Normal 0.0-0.1 [facility] Comment on above: Performed By: #### C BC ####[facility] [address] [address]Dr. Jay Sebastian Basophils/100 WBC (Bld) 1.0 % Normal 0.2-2.0 [facility] Comment on above: Performed By: #### C BC ####[facility] [address] [place], [place] [address]Dr. Jay Cortes EO # 0.1 103/ul Normal 0.0-0.7 [facility] Comment on above: Performed By: #### C BC ####[facility] [address] [place], [place] [address]Dr. Jay Sebastian Eosinophils/100 WBC (Bld) 2.3 % Normal 0.9-7.0 [facility] Comment on above: Performed By: #### C BC ####[facility] [address] [place], [place] [address]Dr. Jay Cortes Erythrocyte distribution width (RBC) [Ratio] 12.7 % Normal 11.0-15.0 [facility] Comment on above: Performed By: #### C BC ####[facility] [address] [place], [place] [address]Dr. Jay Cortes Hematocrit (Bld) [Volume fraction] 39.9 % Normal 36.0-48.0 [facility] Comment on above: Performed By: #### C BC ####[facility] [address] [place], [place] [address]Dr. Jay Cortes Hemoglobin (Bld) [Mass/Vol] 13.6 g/dL Normal 12.0-16.0 [facility] Comment on above: Performed By: #### C BC ####[facility] [address] [place], [place] [address]Dr. Conniesabas Cortes IG # 0.01 10e3/ul Normal 0.00-0.03 [facility] Comment on above: Performed By: #### C BC ####[facility] [address] [address]Dr. Conniesabas Cortes IG % 0.3 % Normal 0.0-0.5 [facility] Comment on above: Performed By: #### C BC ####[facility] [address] [address]Dr. Conniesabas Cortes LYMPH # 1.4 103/ul Normal 1.2-3.8 [facility] Comment on above: Performed By: #### C BC ####[facility] [address] [address]Dr. Conniesabas Cortes Lymphocytes/100 WBC (Bld) 34.3 % Normal 20.5-60.0 [facility] Comment on above: Performed By: #### C BC ####[facility] [address] [place], [place] [address]DrBrad Cortes MANUAL DIFF REQ NO Normal [facility] Comment on above: Performed By: #### C BC ####[facility] [address] [id number]. Jay Sebastian MCH (RBC) [Entitic mass] 30.6 pg Normal 26.7-34.0 [facility] Comment on above: Performed By: #### C BC ####[facility] [address] [place], [place] [address]Dr. Jay Sebastian MCHC (RBC) [Mass/Vol] 34.1 g/dL Normal 29.9-35.2 [facility] Comment on above: Performed By: #### C BC ####[facility] [address] [place], [place] [address]DrBrad Conniesabas Cortes MCV (RBC) [Entitic vol] 89.7 fL Normal 81.0-99.0 [facility] Comment on above: Performed By: #### C BC ####[facility] [address] [address]DrBrad Cortes MONO # 0.3 103/ul Normal 0.3-0.8 [facility] Comment on above: Performed By: #### C BC ####[facility] [address] [address]Dr. Jay Cortes Monocytes/100 WBC (Bld) 6.3 % Normal 1.7-12.0 [facility] Comment on above: Performed By: #### C BC ####[facility] [address] [address]Dr. Jay Cortes NEUT # 2.2 103/ul Normal 1.4-6.5 [facility] Comment on above: Performed By: #### C BC ####[facility] [address] [address]Dr. Jay Cortes Neutrophils/100 WBC (Bld) 55.8 % Normal 43.0-75.0 [facility] Comment on above: Performed By: #### C BC ####[facility] [address] [address]Dr. Jay Cortes Platelet mean volume (Bld) [Entitic vol] 10.0 fL Normal 9.5-13.5 [facility] Comment on above: Performed By: #### C BC ####[facility] [address] [address]Dr. Jay Cortes PLT 265 103/ul Normal 150-450 [facility] Comment on above: Performed By: #### C BC ####[facility] [address] [id number]. Jay Cortes RBC 4.45 106/ul Normal 4.20-5.40 [facility] Comment on above: Performed By: #### C BC ####[facility] [address] [address]Dr. Jay Cortes WBC 4.0 103/ul Normal 4.0-11.0 [facility] Comment on above: Performed By: #### C BC ####[facility] [address] [address]Dr. Jay Cortes FREE THYROXINE INDEX T7on FTI 2.49 Normal 1.30-4.50 [facility] Comment on above: Performed By: #### C MP, LIPID, TSH, T7 #### [facility] [address] [address] [address] Jay Cortes T3U 35.0 % Normal 30.0-39.0 [facility] Comment on above: Performed By: #### C MP, LIPID, TSH, T7 #### [facility] [address] [address] [address] Jay Cortes T4 [Mass/Vol] 7.10 ug/dL Normal 4.80-13.90 [facility] Comment on above: Performed By: #### C MP, LIPID, TSH, T7 #### [facility] [address] [address] [address] Jay Cortes GLYCOHEMOGLOBIN A1Con 2022 ADA RECOMMENDATION SEE BELOW Normal [facility] Comment on above: Result Comment: ADA RECOMMENDED LIMIT 4.0 - 6.0 ADA THERAPEUTIC TARGET < 7.0 ACTION SUGGESTED > 7.0 Performed By: #### A 1C #### [facility] [address] [address] [address] Jay Cortes Glucose [Mass/Vol] 105 mg/dL Normal [facility] Comment on above: Performed By: #### A 1C #### [facility] [address] [address] [address] Jay Cortes HbA1c (Bld) [Mass fraction] 5.3 % Normal 4.5-6.2 [facility] Comment on above: Performed By: #### A 1C #### [facility] [address] [address] [address] Jay Cortes IRONon 10-13-2022 Iron [Mass/Vol] 90.0 ug/dL Normal 50.0-170.0 [facility] Comment on above: Performed By: #### I ALANA ####[facility] [address] [address]Dr. Jay Cortes LIPID PROFILEon 10-13-2022 CHOL-HDL RATIO NORM SEE BELOW Normal [facility] Comment on above: Result Comment: 3.3 - 4.4 LOW RISK 4.4 - 7.1 AVERAGE RISK 7.1 - 11.0 MODERATE RISK >11.0 HIGH RISK Performed By: #### C MP, LIPID, TSH, T7 #### [facility] [address] [place] [address] Dr. Jay Cortes Cholesterol [Mass/Vol] 175 mg/dL Normal <=200 [facility] Comment on above: Performed By: #### C MP, LIPID, TSH, T7 #### [facility] [address] [place] [address] Dr. Jay Cortes Cholesterol in HDL [Mass/Vol] 72 mg/dL Critically high 40-60 [facility] Comment on above: Performed By: #### C MP, LIPID, TSH, T7 #### [facility] [address] [place] [address] Dr. Jay Cortes Cholesterol in LDL [Mass/Vol] 88.0 mg/dL Normal [facility] Comment on above: Performed By: #### C MP, LIPID, TSH, T7 #### [facility] [address] [place] [address] Dr. Jay Cortes Cholesterol.total/Ch olesterol in HDL [Mass ratio] 2.4 {ratio} Normal [facility] Comment on above: Performed By: #### C MP, LIPID, TSH, T7 #### [facility] [address] [place] [address] Dr. Jay Cortes HDL NORMAL > or = 60 mg/dl - LO W CARDIOVASCULAR RISK <40 mg/dl - HIGH CARDIOVASCULAR RISK Normal [facility] Comment on above: Performed By: #### C MP, LIPID, TSH, T7 #### [facility] [address] [place] [address] Dr. Jay Cortes LDL CALC NORMAL SEE BELOW Normal [facility] Comment on above: Result Comment: <100 mg/dl OPTIMAL 100 - 129 mg/dl NEAR OR ABOVE OPTIMAL 130 - 159 mg/dl BORDERLINE HIGH 160 - 189 mg/dl HIGH >190 mg/dl VERY HIGH Performed By: #### C MP, LIPID, TSH, T7 #### [facility] [address] [place] [address] Dr. Jay Cortes Triglyceride [Mass/Vol] 75 mg/dL Normal <=150 [facility] Comment on above: Performed By: #### C MP, LIPID, TSH, T7 #### [facility] [address] [place] [address] Dr. Jay Cortes VLDL CALC 15.0 mg/dL Normal [facility] Comment on above: Performed By: #### C MP, LIPID, TSH, T7 #### [facility] [address] [place] [address] Dr. Jay Cortes PROF 14(COMP METB)on 023 Albumin [Mass/Vol] 4.1 g/dL Normal 3.4-5.0 [facility] Comment on above: Performed By: #### C MP, LIPID, TSH, T7 #### [facility] [address] [place] [address] Dr. Jay Cortes Albumin/Globulin [Mass ratio] 1.2 {ratio} Normal [facility] Comment on above: Performed By: #### C MP, LIPID, TSH, T7 #### [facility] [address] [place] [address] Dr. Jay Cortes ALP [Catalytic activity/Vol] 51 U/L Normal 46-116 [facility] Comment on above: Performed By: #### C MP, LIPID, TSH, T7 #### [facility] [address] [place] [address] Dr. Jay Cortes ALT [Catalytic activity/Vol] 23 U/L Normal 14-59 [facility] Comment on above: Performed By: #### C MP, LIPID, TSH, T7 #### [facility] [address] [place] [address] Dr. Jay Cortes Anion gap [Moles/Vol] 11.4 mmol/L Normal [facility] Comment on above: Performed By: #### C MP, LIPID, TSH, T7 #### [facility] [address] [place] [address] Dr. Jay Cortes AST [Catalytic activity/Vol] 12 U/L Critically low 15-37 [facility] Comment on above: Performed By: #### C MP, LIPID, TSH, T7 #### [facility] [address] [address] [address] Jay Cortes Bilirubin [Mass/Vol] 0.3 mg/dL Normal 0.2-1.0 [facility] Comment on above: Performed By: #### C MP, LIPID, TSH, T7 #### [facility] [address] [address] [address] Jay Cortes Calcium [Mass/Vol] 8.9 mg/dL Normal 8.5-10.1 [facility] Comment on above: Performed By: #### C MP, LIPID, TSH, T7 #### [facility] [address] [address] [address] Jay Cortes Chloride [Moles/Vol] 104 mmol/L Normal 98-107 [facility] Comment on above: Performed By: #### C MP, LIPID, TSH, T7 #### [facility] [address] [address] [address] Jay Cortes CO2 [Moles/Vol] 29.5 mmol/L Normal 21.0-32.0 [facility] Comment on above: Performed By: #### C MP, LIPID, TSH, T7 #### [facility] [address] [address] [address] Jay Cortes Creatinine [Mass/Vol] 0.60 mg/dL Normal 0.55-1.02 [facility] Comment on above: Performed By: #### C MP, LIPID, TSH, T7 #### [facility] [address] [address] [address] Jay Cortes EGFR-AF JORDANIAN >60 Normal >=60 [facility] Comment on above: Performed By: #### C MP, LIPID, TSH, T7 #### [facility] [address] [address] [address] Jay Cortes EGFR-NON AF JORDANIAN >60 Normal >=60 [facility] Comment on above: Performed By: #### C MP, LIPID, TSH, T7 #### [facility] [address] [address] [address] Jay Cortes Globulin (S) [Mass/Vol] 3.3 g/dL Normal [facility] Comment on above: Performed By: #### C MP, LIPID, TSH, T7 #### [facility] [address] [address] [address] Jay Cortes Glucose [Mass/Vol] 103 mg/dL Normal 74-106 [facility] Comment on above: Performed By: #### C MP, LIPID, TSH, T7 #### [facility] [address] [address] [address] Jay Cortes Potassium [Moles/Vol] 3.9 mmol/L Normal 3.5-5.1 [facility] Comment on above: Performed By: #### C MP, LIPID, TSH, T7 #### [facility] [address] [place] [address] Dr. Jay Cortes Protein [Mass/Vol] 7.4 g/dL Normal 6.4-8.2 [facility] Comment on above: Performed By: #### C MP, LIPID, TSH, T7 #### [facility] [address] [address] [address] Jay Cortes Sodium [Moles/Vol] 141 mmol/L Normal 136-145 [facility] Comment on above: Performed By: #### C MP, LIPID, TSH, T7 #### [facility] [address] [address] [address] Jay Cortes Urea nitrogen [Mass/Vol] 15.0 mg/dL Normal 7.0-18.0 [facility] Comment on above: Performed By: #### C MP, LIPID, TSH, T7 #### [facility] [address] [place] [address] Dr. Jay Cortes Urea nitrogen/Creatinine [Mass ratio] 25.0 mg/mg Normal [facility] Comment on above: Performed By: #### C MP, LIPID, TSH, T7 #### [facility] [address] [place] [address] Dr. Jay Cortes TSHon 10-13-2022 TSH 0.941 uIU/mL Normal 0.358-3.740 [facility] Comment on above: Performed By: #### C MP, LIPID, TSH, T7 #### [facility] [address] [address] [address] Jay Cortes VAGINITIS/VAGINOSIS DNA PROB Tarun 06-27-2022 Wendy species Negative Normal Negative [facility] Comment on above: Performed By: #### V AGINT #### [facility] [address] [address] [address] Jay Cortes Gardnerella vaginalis Negative Normal Negative [facility] Comment on above: Performed By: #### V AGINT #### [facility] [address] [address] [address] Jay Cortes Trichomonas vaginalis Negative Normal Negative [facility] Comment on above: Performed By: #### V AGINT #### [facility] [address] [address] [address] Jay Cortes PAP ACOG PANEL 2: 30 to 65on 06-22-2022 . . Normal [facility] Comment on above: Result Comment: Perf ormed at: WB Performed By: #### 4 [id number] ####[facility] [address] [address]Dr. Jay Cortes Age Gdln ACOG Testing 30-65 Normal [facility] Comment on above: Performed By: #### 4 [id number] ####[facility] [address] [address]Dr. Jay Cortes DIAGNOSIS: Comment Normal [facility] Comment on above: Result Comment: NEGA TIVE FOR INTRAEPITHELIAL LESION OR MALIGNANCY. Performed at: WB Performed By: #### 4 [id number] ####[facility] [address] [address]Dr. Jay Cortes HPV Aptima Negative Normal Negative [facility] Comment on above: Result Comment: This nucleic acid amplification test detects fourteen high-risk HPV types (16,18,31,33,35,39,45,51,52,56,58,59,66,68) without differentiation. Performed at: =G Performed By: #### 4 [id number] ####[facility] [address] [address]Dr. Jay Cortes Methodology: Comment Normal [facility] Comment on above: Result Comment: This liquid based ThinPrep(R) pap test was screened with the use of an image guided system. Performed at: WB Performed By: #### 4 [id number] ####[facility] [address] [id number] Cortes Note: Comment Normal [facility] Comment on above: Result [...] Performed at: WB Performed By: #### 4 [id number] ####[facility] [address] [address]DrBrad Corets Performed by: Comment Normal [facility] Comment on above: Result Comment: Annalise Tubbs, Fly Finisher (ASCP) Performed at: WB Performed By: #### 4 [id number] ####[facility] [address] [id number] Cortes Specimen adequacy: Comment Normal [facility] Comment on above: Result Comment: Sati sfactory for evaluation. No endocervical cells are present. This is consistent with a history of hysterectomy. Performed at: WB Performed By: #### 4 [id number] ####[facility] [address] [id number] Cortes MG MAMM SCREEN 3D MIGUEL CADon 06-13-2022 MG MAMM SCREEN 3D MIGUEL CAD Patient: SHILPA OBRIEN Exam Date: 06/13/2022 : 1965 Gender:F Ordering : DR TRICIA CONSTANTINO . Admission #: [id number] Family : Order #: [id number] CLICK HERE TO VIEW EXAM RADIOLOGY REPORT [...] Treatments None Family Cancers None LOCATION: [facility] BREAST COMPOSITION: Heterogeneously dense,which may obscure [...] Martinez MD on 06/13/2022 at 09:10 Normal [facility] XR DEXA BONE DENSITYon 06-13 XR DEXA BONE DENSITY DEXA Bone Density Study CLINICAL: Evaluate bone mineral density. Postmenopausal COMPARISON: 06/11/2020 FINDINGS: The bone density study was assessed by dual-energy x-ray absorptiometry with the [employer] scanner. The test results are expressed in [...] by: BARBARA ATKINS Date: 2022-06-13 08:30 Normal [facility] Vital Signs Date Time Vital Sign Value Performing Clinician Facility 07-05-2024 14:27-0400 Body height 170.2 cm Halalati Phone: [facility] frooly 07-05-2024 14:27-0400 Body mass index (BMI) [Ratio] 23.15 kg/m2 Halalati Phone: [facility] frooly 07-05-2024 14:270400 Body weight 67.04 kg Halalati Phone: [facility] 07-05-2024 14:27-0400 Diastolic blood pressure 80 mm[Hg] Halalati Phone: [facility] frooly 07-05-2024 14:27-0400 Systolic blood pressure 118 mm[Hg] Tricia Vira DO Work Phone: [facility] Healthcare 10-28-2022 15:02-0500 Blood Pressure Location Eric KRISHNAL [facility] [place] 10-28-2022 15:02-0500 Diastolic blood pressure 86 mm[Hg] Eric NILL [facility] [place] 10-28-2022 15:02-0500 Heart rate 70 /min Eric NILL [facility] [place] 10-28-2022 15:02-0500 Respiratory rate 16 /min Eric NILL [facility] [place] 10-28-2022 15:02-0500 Systolic blood pressure 122 mm[Hg] Eric KRISHNAL [facility] [place] Encounters Encounter Date Encounter Type Care Provider Facility Start: 07-05-2024 End: 07-05-2024 Bamboo flowsheet Tricia Vira DO Work Phone: [facility] Start: 07-05-2024 End: 07-12-2024 Bamboo flowsheet Tricia Vira DO Work Phone: [facility] Start: 07-05-2024 End: 07-12-2024 Clinisync Result Encounter Tricia Vira DO Work Phone: [facility] External Department Unsolicited Start: 07-05-2024 End: 07-05-2024 Patient encounter procedure Tricia Vira DO Work Phone: [facility] Healthcare Start: 07-05-2024 End: 07-05-2024 Patient encounter status Tricia Vira DO Work Phone: [facility] Start: 07-05-2024 End: 07-05-2024 Periodic preventive med est patient 40-64yrs Tricia Vira DO Work Phone: [facility] OB Comment on above: Well woman exam [...] [facility] [address] [place] [id number] Tricia Constantino, DO [address] [place] [address] [facility] Start: 06-22-2025 Screening for malignant neoplasm of breast Mammogram [facility] Start: 07-05-2024 End: 07-05-2025 DXA Skeletal system Views for bone density DEXA bone density Imaging Routine Well woman exam with routine gynecological exam Preventative health care Surgical menopause Expected: 07/05/2024 (Approximate), Expires: 07/05/2025 [facility] Comment on above: Expected: 07/05/2024 (Approximate), Expires: 07/05/2025 Start: 07-05-2024 End: 09-04-2025 MG Breast - bilateral Screening Bilateral screening mammogram Imaging Routine Well woman exam with routine gynecological exam Preventative health care Encounter for screening mammogram for malignant neoplasm of breast Expected: 07/05/2024, Expires: 09/04/2025 [facility] Work Phone: Comment on above: Expected: 07/05/2024 , Expires: 09/04/2025 Start: 07-05-2024 End: 07-05-2024 Patient encounter procedure 07/05/2024 2:00 PM EDT Office Visit [facility] [address] [id number] Tricia Constantino, DO [address] [place] [address] Arrived [facility] Comment on above: Arrived Start: 05-15-2024 Influenza vaccination Influenza Vacc ine (#1) [facility] Start: 1967 Screening for malignant neoplasm of colon [facility] THIN PREP TIS PAP AN D HR HPV DNA THIN PREP TIS PAP AND HR HPV DNA Pathology and Cytology Routine Well woman exam with routine gynecological exam Ordered: 07/05/2024 [facility] Comment on above: Ordered: 07/05/2024 Immunizations Immunization Date Immunization Notes Care Provider [facility] 07-27-2023 influenza virus vaccine, unspecified formulation Tricia Constantino DO Work Phone: [facility] 08-08-2022 influenza virus vaccine, unspecified formulation Eric ALL[facility] [place] 08-17-2021 SARS-CoV-2 (COVID-19 ) mRNA-1273 vaccine Eric ALLEN [facility] [place] Comment on above: Result Comment: 2022: [id number] 12-21-2020 SARS-CoV-2 (COVID-19 ) mRNA-1273 vaccine Eric ALLEN [facility] [place] 11-23-2020 SARS-CoV-2 (COVID-19 ) mRNA-1273 vaccine Eric ALLEN [facility] [place] Payers Date Payer Category Payer Private Health Insurance [employer] [id number] 1965 Unknown [id number]. 593 1967 Unknown [id number] 2.840.1.624270.3.579.2. 593 1967 Unknown [id number] [id number]. 593 1967 Unknown [id number] 2.16.840.1.056624.3.579.2. 593 1967 Unknown [id number] 2.16840.1.715977.3.579.2. 593 1967 Unknown [id number] 2.16.840.1.694812.3.579.2. 593 1967 Unknown [id number] 2.16.840.1.588349.3.579.2. 727 1967 Unknown [id number] 2.16.840.1.623545.3.579.2. 727 1967 Unknown [id number] 2.16.840.1.312905.3.579.2. 727 1959 Unknown [id number] Social History Date Type Detail Facility Start: 10-28-2022 Tobacco smoking status Never smoked tobacco (finding) [facility] [place] Tobacco smoking status Never [facility] Sex Assigned At Female [facility] Tobacco smoking stat [facility] Tobacco smoking consumption unknown [facility] Start: 1965 Sex assigned at Female [facility] Start: 06-15-2023 Gender identity Identifies as female gender (finding) [facility] Start: 06-15-2023 Sexual orientation Heterosexual (finding) [facility] Functional Status Date Assessment Result [...] woman exam with routine gynecological exam 07/05/2024 [facility] care 07/05/2024 Encounter for screening mammogram for [...] nursing note reviewed. Exam conducted with a rectification printer present. Vitals: Estimated body mass index is [...] Tricia Constantino DO documented in this encounter [facility] Clinical Note 11-19-2022 Note Date & Type [...] 2 mL. CC: Horacio San M.D. [facility] Clinical Note 10-28-2022 Note Date & [...] plan excisional biopsy under local anesthesia at [facility], informed consent obtained. Follow-up No qualifying [...] Recorded SARS-CoV-2 (COVID-19) mRNA-1273 vaccine 11/23/2020 Recorded [facility] Comment on above: Result Comment: Elec tronically Signed By: LISBETH TERESA, Eric Fierro\Date and Time Signed: 10/28/22 15:34 EST Evaluation + Plan note Note Date & Type Note Facility Evaluation + Plan note No data available for this section [facility] [place] Evaluation note Note Date & Type Note [...] data available for this section [facility] [place] Progress note Note Date & Type Note Facility Progress note No data available for this section [facility] [place] Summary Purpose Family History No Family History Records FoundNo Family History Records Found Advance Directives No Advanced Directives Records FoundNo Advanced Directives Records Found Additional Source Comments Patient Care team informatio n (unrecognized section and content) [employer] Relationship Specialty Start Date End Date Horacio San MD [address] [place] [address] PCP - General Family Medicine 06/22/23 [employer] Relationship Specialty Start Date End Date Horacio San MD [address] [place] [address] PCP - General Family Medicine 06/22/23 [employer] Relationship Specialty Start Date End Date Horacio San MD [address] [place] [address] PCP - General Family Medicine 06/22/23 INFORMATION SOURCE (unrecogn ized section and content) DATE CREATED AUTHOR 12/05/2022 [facility] DATE CREATED AUTHOR AUTHOR'S ORGANIZ ATION 12/14/2022 [facility] Reason for Visit (unrecogniz ed section [...] BE BASED ON THE PRIMARY CLINICAL RECORDS. [facility] [employer] provides no warranty or guarantee of the accuracy or completeness of information in this document.
== END 2025-04-06 08:40 | disposition home or self-care (01) ==
LOC: CARD 08:39
PROVIDERS: PCP Family Medicine; Visit Provider Family Medicine
DX: R00.2 Palpitations (principal)
CPT/HCPCS: 93242

== ENCOUNTER 2025-05-16 08:09 | Outpatient (OUT) | payer OTHER, SELFPAY ==
--- OUTSIDE RECORDS SUMMARY | 2024-01-31 16:46 | XMS_ITS ---
Author Organization [facility] in [place] Address [address] [place] [address] Care Team Providers Care Lead Java J2Ee Developer Name Role Phone Selvin Parks Primary Care Provider HORACIO PARKS Unavailable [phone] REASON FOR VISIT Lab results Medications Medication SIG (Take, Route, Frequency, Duration) Notes Start Date End Date Status Vitamin D (Cholecalciferol) 25 MCG (1000 UT) 1 capsule Orally Once a day for 30 days 02/01/2024 Active Encounters Encounter Location Date Provider Diagnosis [address] [address] 01/31/2024 HORACIO PARKS Plan Of Treatment Medication Medication Name Sig Start Date Stop Date Notes Vitamin D (Cholecalciferol) 25 MCG (1000 UT) 1 capsule Orally Once a day for 30 days 02/01/2024 Progress Notes * Shilpa HOPPER CDOB: [birth year] (58 yo F)Acc No.[id number]:01/31/2024 Patient: Mireya WALLACE Shilpa Delgadillo :1965 A ge:58 Y S ex:Female Address:[address], [place], [address] * Refills Start Vitamin D (Cholecalciferol) Capsule, 25 MCG (1000 UT), Orally, 30, 1 capsule, Once a day, 30 days * true * Date: Generated for Printi ng/Faxing/eTransmitting on: 0 05/16/2025 08:15 AM EDT
--- OUTSIDE RECORDS SUMMARY | 2025-04-04 04:00 | XMS_ITS ---
Author Organization [facility] in [place] Address [address] [place] [address] Care Team Providers Care Donor Relations Manager Name Role Phone Selvin San Primary Care Provider [phone] Allergies Allergen (clinical drug ingredient) Drug/Non Drug Allergy documented on EMR Reaction Allergy Type Onset Date Status Penicillin itching Drug Allergy Active Results Component Value Reference Range Notes MAGNESIUM Reviewed date:04/04/2025 04:20:06 PM Interpretation: Performing Lab: Notes/Report: [facility] , Magnesium 2.2 1.8-2.4 mg/dL Performing Lab: see note ML - [facility] LB REASON FOR VISIT yearly wellness exam, patient has trouble sleeping Medications Medication SIG (Take, Route, Frequency, Duration) Notes Start Date End Date Status Magnesium Active Aspirin 81 Active Multivitamin Active Diclofenac Sodium 75 MG 1 tablet as need ed Orally Twice a day for 30 days 04/04/2025 Active Vitamin D (Cholecalciferol) 25 MCG (1000 UT) 1 capsule Orally Once a day for 30 days 02/01/2024 Active Social History Tobacco Use: Social History Observation Description Date Details (start date - stop date) Never Smoker NA - NA Tobacco Use/Smoking Question Answer Notes Patient is a nonsmoker AUDIT-C (Standard) Question Answer Notes Did you have a drink containing alcohol in the p ast year? No Points 0 Interpretation Negative Problems Problem Type SNOMED Code ICD Code Onset Dates Problem Status W/U Status Risk Notes Problem Well adult (310755378) Well adult (Z00.00) Active confirmed Vital Signs Weight 152.8 lbs 04/04/2025 Height 67 in 04/04/2025 Blood pressure systolic 112 mm Hg 04/04/20 25 Blood pressure diastolic 72 mm Hg 025 BMI 23.93 kg/m2 04/04/2025 Procedures Procedure Date Ordered Date Performed Result Body Sit e Holter Monitor - 3 days up to 14 days 04/04/2025 N/A Encounters Encounter Location Date Provider Diagnosis [facility] [address] [place] [address] 04/04/2025 Selvin San Well adult Z00.00 an d Palpitation R00.2 Assessments Encounter Date Diagnosis (ICD Code) Assessment Notes Treatment Notes Treatment Clinical Notes Section Notes 04/04/2025 Well adult (ICD-10 - Z00.00) 04/04/2025 Palpitation (ICD-10 - R00.2) Plan Of Treatment Medication Medication Name Sig Start Date Stop Date Notes Diclofenac Sodium 75 MG 1 tablet as need ed Orally Twice a day for 30 days 04/04/2025 Pending Test Test Name Order Date HEMOGLOBIN A1C (GLYCO) 04/04/2025 IRON, TOTAL 04/04/2025 LIPID PANEL (CHOL/TRIG/HDL/LDL) 04/04/20 25 THYROID PANEL (T4/TSH/FREE T3) Holter Monitor - 3 days up to 14 days CMP (COMP MET MAYS) w/eGFR CKD-EPI 2024 CBC WITH DIFF 04/04/2025 Progress Notes * Shilpa HOPPER CDOB: [birth year] (59 yo F)Acc No.[id number]:04/04/2025 Progress Note Patient: Shilpa WHITLEY Leona Provider: Yovany San (TTC)MD :1965 A ge:59 Y S ex:Female Date:04/04/2025 Address:[facility] [id number] Check In:07:53 AM ESTCheck O ut:08:34 AM EST Subjective: * Chief Complaints: * Y early wellness examPatient has trouble sleeping * HPI: G eneral: feeling palpitations almost daily needs labd and mammogram. * ROS: E ENT: hearing changes d enies. v isual changes d enies.?non-healing mouth sores d enies. s wollen glands or neck lumps d enies. h oarseness d enies. s ore throat d enies. d ifficulty swallowing d enies. n ose bleeds d enies. n arlette congestion d enies. e ar ache d enies. e ar discharge?denies. r inging in ears d enies. l ight sensitivity d enies. e ye pain d enies. b lurring d enies. e ye irritation d enies. d ouble vision d enies.?vision loss d enies. G eneral/Constitutional: Sweats: D enies. F atigue d enies. S leep problems d enies. A norexia d enies. M alaise d enies. W eight loss d enies.?Fatigue or Weakness d enies. F ever or Chills d enies. C ardiovascular: Shortness of Breath w/lying flat d enies. L ightheadedness/dizziness d enies. C hest tightness/ heavy pressure d enies. S welling of legs, ankles, or feet d enies. W aking up with shortness of breath d enies. C hest pain denies. P alpitations d enies. W eight gain d enies. R espiratory: Chronic or frequent cough d enies. C oughing up blood?denies. D ifficulty breathing d enies. P roductive cough d enies. S noring?denies. S hortness of breath that awakens from sleep (PND) d enies. C hest pain d enies. S putum production d enies. W heezing d enies. M usculoskeletal: Joint pain d enies. J oint Fluid d enies. B ack pain d enies. K nee pain d enies. N inés pain d enies. J oint Stiffness d enies. M uscle cramps d enies. W eakness of muscles d enies. A rthritis d enies. M uscle aches d enies. P ain in shoulder(s) d enies. S wollen joints d enies. * Active Problem List F41.9 Anxiety and depressi on Modified On:03/09/2023/U Status:confirmed R20.2 Paresthesia Modified On:04/17/2023/U Status:confirmed R20.2 Paresthesia of skin Modified On:04/01/2023W/U Status:confirmed M48.02 Spinal stenosis, cer vical region Modified On:05/07/2023/U Status:confirmed G96.191 Perineural cyst Modified On:05/07/2023/U Status:confirmed M85.80 Osteopenia Modified On:07/12/2024/U Status:confirmed Z00.00 Well adult Modified On:04/04/2025/U Status:confirmed * Medical History: * Surgical History: L ipoma excision Hysterectomy 2018Umbilical Hernia repair 1998T&A * Hospitalization/Major Diagno stic Procedure: N o Hospitalization History. * Family History: F ather: , [place], diagnosed with Unspecified heart disease. M other: , [place].?Sister(s): alive, MS. S on(s): alive, CMT. D aughter(s): alive. 1 sister(s) . 1 son(s) , 1 daughter(s) - healthy. . * Social History: T obacco Use: T obacco Use/Smoking P atient is a n onsmoker D rug/Alcohol: A DAVID-C (Standard) D id you have a drink containing alcohol in the past year? N o P oints 0 I nterpretation N egative * Medications: T akingAspirin 81 Magnesium Multivitamin Vitamin D (Cholecalciferol) 25 MCG (1000 UT) Capsule 1 capsule Orally Once a day Medication List reviewed and reconciled with the patientTaking Aspirin 81 Taking Magnesium Taking Multivitamin Taking Vitamin D (Cholecalciferol) 25 MCG (1000 UT) Capsule 1 capsule Orally Once a day Medication List reviewed and reconciled with the patient * Allergies: P enicillin: itchingno[Allergies Verified] Objective: * Vitals: W t:152.8lbs, Ht: 67 in, BP:112/72mm Hg, BMI:23.93Index, Ht-cm: 170.18 cm, Wt-k.31 kg. * Examination: P hysical Exam: GENERAL: w ell developed, well nourished, in no acute distress. HEAD: n ormocephalic/atraumatic. EYES: p upils equal, round and reactive to light, conjunctivae and sclerae normal. EARS: n o deformity or lesion of external ear, canals and TM appear normal bilaterally, TM's intact, not inflamed with normal light reflex, hearing grossly normal to conversational speech. NOSE: n o deformity, discharge, inflammation, or lesions.? MOUTH: m ucous membranes moist, normal oropharynx and posterior pharynx without lesions or exudates, tongue normal, dentition normal. NECK: n inés supple, no masses or palpable cervical nodes, trachea midline, thyroid without nodules, masses, tenderness, or enlargement. CHEST: n o chest wall deformity, no chest wall tenderness.? LUNGS: n ormal respiratory effort and clear to auscultation, no wheezes, rales, or rhonchi, good air exchange. CARDIO: r egular rate and rhythm, normal S1 and S2, nor murmur, rub, or gallop. PULSES: n ormal capillary refill. ABDOMEN: s oft, non-distended, non-tender, no masses. MUSCULOSKELETAL: n o deformity or scoliosis noted, normal range of motion, joints normal, no erythema, edema, effusion, or ecchymosis. EXTREMITY: n o clubbing, cyanosis, edema, or deformity with normal ROM in both upper and lower bilateral extremities. NEUROLOGIC: g rossly normal. SKIN: n o rashes, ulcerations, or suspicious lesions. LYMPH NODES: n o cervical adenopathy, nodes normal. MENTAL STATUS: a lert and oriented x3, normal mood and affect. Assessment: * Assessment: 1. W ell adult - Z00.00 (Primary) 2 . P alpitation - R00.2 Plan: * Treatment: 2. P alpitation P rocedure: Holter Monitor - 3 days up to 14 days * Labs: * L ab: MAGNESIUM (Collection Date & Time - 04/04/2025 08:46 AM) * Procedure Codes: * * Sign off status: Completed Visit Status: C HK (Check Out) true * Provider: Yovany San (ROSELIA)MD Date: 0 04/04/2025 Generated for Printi ng/Faxing/eTransmitting on: 0 05/16/2025 08:14 AM EDT History and Physical Notes * HPI (History of Present Illness) Category Sub-Category Detail Notes Category Not es General feeling palpitations almost daily needs labd and mammogram Examination Category Sub-Category Detail Notes Category Not es Physical Exam GENERAL: well developed, well nourished, in no acute distress HEAD: normocephalic/atraum atic EYES: pupils equal, round and reactive to light, conjunctivae and sclerae normal EARS: no deformity or lesi on of external ear, canals and TM appear normal bilaterally, TM's intact, not inflamed with normal light reflex, hearing grossly normal to conversational speech NOSE: no deformity, discha rge, inflammation, or lesions MOUTH: mucous membranes sean st, normal oropharynx and posterior pharynx without lesions or exudates, tongue normal, dentition normal NECK: neck supple, no mass es or palpable cervical nodes, trachea midline, thyroid without nodules, masses, tenderness, or enlargement CHEST: no chest wall deform ity, no chest wall tenderness LUNGS: normal respiratory e ffort and clear to auscultation, no wheezes, rales, or rhonchi, good air exchange CARDIO: regular rate and rhy thm, normal S1 and S2, nor murmur, rub, or gallop PULSES: normal capillary ref ill ABDOMEN: soft, non-distended, non-tender, no masses RECTAL: MUSCULOSKELETAL: no deformity or scol iosis noted, normal range of motion, joints normal, no erythema, edema, effusion, or ecchymosis EXTREMITY: no clubbing, cyanosi s, edema, or deformity with normal ROM in both upper and lower bilateral extremities NEUROLOGIC: grossly normal SKIN: no rashes, ulceratio ns, or suspicious lesions LYMPH NODES: no cervical adenopat hy, nodes normal MENTAL STATUS: alert and oriented x 3, normal mood and affect
--- OUTSIDE RECORDS SUMMARY | 2025-04-04 12:19 | XMS_ITS ---
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 Name Role Phone Selvin San Primary Care Provider [phone] REASON FOR VISIT labs LMTCB Encounters Encounter Location Date Provider Diagnosis [facility] [address] [place] [address] 04/04/2025 Selvin San Abnormal blood chemistry R79.9 Assessments Encounter Date Diagnosis (ICD Code) Assessment Notes Treatment Notes Treatment Clinical Notes Section Notes 04/04/2025 Abnormal blood chemistry (ICD-10 - R79.9) Plan Of Treatment Pending Test Test Name Order Date CBC AUTO DIFF 04/04/2025 Progress Notes * Shilpa HOPPER CDOB: [birth year] (59 yo F)Acc No.[id number]:04/04/2025 Patient: Anna WHITLEYrich Delgadillo :1965 A ge:59 Y S ex:Female Address:[address] [address] Subjective: * Chief Complaints: * l abs LMTCB * Medical History: * Surgical History: * Hospitalization/Major Diagno stic Procedure: * Medications: Objective: * Vitals: * Physical Examination: Assessment: * Assessment: 1. A bnormal blood chemistry - R79.9 (Primary) Plan: * Treatment: * Procedure Codes: * true * Date: Generated for Printi ng/Faxing/eTransmitting on: 0 05/16/2025 08:17 AM EDT
--- OUTSIDE RECORDS SUMMARY | 2025-04-05 06:28 | XMS_ITS ---
Author Organization [facility] [place] Address [address] [place] [address] Care Team Providers Care Hand Inspector Name Role Phone Selvin San Primary Care Provider REASON FOR VISIT Refill Medications Medication SIG (Take, Route, Fr equency, Duration) Notes Start Date End Date Status Diclofenac Sodium 75 MG 1 tablet as need ed Orally Twice a day for 90 days 04/04/2025 Active Encounters Encounter Location Date Provider Diagnosis [facility] [address] [place] [address] 04/05/2025 Selvin San Well adult Z00.00 Assessments Encounter Date Diagnosis (ICD Code) Assessment Notes Treatment Notes Treatment Clinical Notes Section Notes 04/05/2025 Well adult (ICD-10 - Z00.00) Plan Of Treatment Medication Medication Name Sig Start Date Stop Date Notes Diclofenac Sodium 75 MG 1 tablet as need ed Orally Twice a day for 90 days 04/04/2025 Progress Notes * Shilpa HOPPER CDOB: [birth year] (59 yo F)Acc No.[id number]:04/05/2025 Patient: Mireya WALLACE Shilpa Delgadillo :1965 A ge:59 Y S ex:Female Address:[address], [place], [address] * Refills Refill Diclofenac Sodium Tablet Delayed Release, 75 MG, Orally, 180 Tablet, 1 tablet as needed, Twice a day, 90 days, Refills=3 * true * Date: Generated for Merari jovel/Carla/[place] on: 0 05/16/2025 08:16 AM EDT
--- OUTSIDE RECORDS SUMMARY | 2025-05-16 08:14 | XMS_ITS | Patient Health Record ---
Author Organization [facility] in [place] Address [address] [place] [address] Care Team Providers Care Professor Of Biblical Studies Name Role Phone Selvin San Primary Care Provider [phone] Allergies Allergen (clinical drug ingredient) Drug/Non Drug Allergy documented on EMR Reaction Allergy Type Onset Date Status Penicillin itching Drug Allergy Active Results Component Value Reference Range Notes MAGNESIUM Reviewed date:04/04/2025 04:20:06 PM Interpretation: Performing Lab: Notes/Report: [facility] , Magnesium 2.2 1.8-2.4 mg/dL Performing Lab: see note ML - [facility] LB CBC AUTO DIFF Reviewed date:04/04/2025 04:20:06 PM Interpretation: Performing Lab: Notes/Report: [facility] , White Blood Count 3.8 4.0-11.0 10 3/uL Red Blood Count 4.64 4.20-5.40 10 6/uL Hemoglobin 14.2 12.0-16.0 g/dL Hematocrit 43.3 36.0-48.0 % Mean Corpuscular Volume 93.3 81.0-99.0 fL Mean Corpuscular Hemoglobin 30.6 26.7-34.0 pg Mean Corpuscular HGB Conc 32.8 29.9-35.2 g/dL Red Cell Distribution Width 12.6 11.0-15.0 % Platelet Count 280 150-450 10 3/uL Mean Platelet Volume 10.7 9.5-13.5 fL Neutrophils Percent Auto 52.7 43.0-75.0 % Lymphocytes Percent Auto 34.3 20.5-60.0 % Monocytes Percent Auto 9.0 1.7-12.0 % Eosinophils Percent Auto 2.4 0.9-7.0 % Basophils Percent Auto 1.3 0.2-2.0 % Immature Granulocytes Pct Auto 0.3 0.0-0.5 % Neutrophils Absolute Auto 2.0 1.4-6.5 10 3/uL Lymphocytes Absolute Auto 1.3 1.2-3.8 10 3/uL Monocytes Absolute Auto 0.3 0.3-0.8 10 3/uL Eosinophils Absolute Auto 0.1 0.0-0.7 10 3/uL Basophils Absolute Auto 0.1 0.0-0.1 10 3/uL Immature Granulocytes Abs Auto 0.01 0.00-0.03 10 3/uL Performing Lab: see note ML - [facility] FREE T3 Reviewed date:04/04/2025 04:20:06 PM Interpretation: Performing Lab: Notes/Report: [facility] , Free T3 2.59 2.18-3.98 pg/mL Performing Lab: see note ML - [facility] LB LIPID PROFILE Reviewed date:04/04/2025 04:20:06 PM Interpretation: Performing Lab: Notes/Report: [facility] , Triglycerides 52 <=150 mg/dL Cholesterol 184 <=200 mg/dL HDL Cholesterol 83 40-60 mg/dL > or =60 mg/dl - LOW CARDIOVASCULAR RISK <40 mg/dl - HIGH CARDIOVASCULAR RISK LDL Cholesterol Calculated 91.0 >190 mg/dl VERY HIGH 100-129 mg/dl NEAR OR ABOVE OPTIMAL 130-159 mg/dl BORDERLINE HIGH 160-189 mg/dl HIGH <100 mg/dl OPTIMAL VLDL CHOLESTEROL 10.4 Chol HDL Ratio 2.2 4.4 - 7.1 AVERAGE RISK 7.1 - 11.0 MODERATE RISK 3.3 - 4.4 LOW RISK >11.0 HIGH RISK Performing Lab: see note ML - [facility] LB PROF 14(COMP METB) Reviewed date:04/04/2025 04:20:06 PM Interpretation: Performing Lab: Notes/Report: [facility] , Sodium 144 136-145 mmol/L Potassium 3.7 3.5-5.1 mmol/L Chloride 105 98-107 mmol/L Carbon Dioxide 29.6 21.0-32.0 mmol/L Anion Gap 13.1 Glucose 99 74-106 mg/dL Blood Urea Nitrogen 13.0 7.0-18.0 mg/dL Creatinine 0.68 0.55-1.02 mg/dL Estimated GFR ( Viviana >60 >=60 mL/min/1.73m 2 Estimated GFR (Non- Amara >60 >=60 mL/min/1.73m 2 BUN Creatinine Ratio 19.1 Calcium 9.2 8.5-10.1 mg/dL Bilirubin Total 0.5 0.2-1.0 mg/dL Aspartate Amino Transferase 15 15-37 U/L Alanine Aminotransferase 29 14-59 U/L Alkaline Phosphatase 56 46-116 U/L Total Protein 7.4 6.4-8.2 g/dL Albumin Level 4.1 3.4-5.0 g/dL Globulin 3.3 Albumin Globulin Ratio 1.2 Performing Lab: see note ML - [facility] LB T4 Reviewed date:04/04/2025 04:20:06 PM Interpretation: Performing Lab: Notes/Report: [facility] , T4 Thyroxine 7.40 4.80-13.90 ug/dL Performing Lab: see note ML - [facility] LB TSH Reviewed date:04/04/2025 04:20:06 PM Interpretation: Performing Lab: Notes/Report: [facility] , Thyroid Stimulating Hormone 1.573 0.358-3.740 uIU/mL Performing Lab: see note - [facility] LB XR DEXA axial skeleton Reviewed date:07/12/2024 08:46:55 PM Interpretation: Performing Lab: Notes/Report: Source Facility: [place] [address] [place] [address] XRay Report Signed Patient: SHILPA HOPPER MR#: [id number] : 1965 Acct:[id number] Age/Sex: 58 / F ADM Date: 07/11/24 Loc: RAD Attending Dr: Tricia Constantino D.O. Ordering Physician: Tricia Constantino D.O. Date of Service: 07/11/24 Procedure(s): XR DEXA axial skeleton Accession Number(s): [id number] cc: Tricia Constantino D.O.; All [place] M.D. [place] [address] Patient Name: SHILPA HOPPER MRN: [facility]:[id number] date: 1965 Sex: F Assigned Patient Location: [facility] Current Patient Location: Accession/Order Number: [id number] Exam Date: 07/11/2024 07:58 Report Date: 07/12/2024 10:24 At the request of: TRICIA CONSTANTINO Procedure: XR DEXA axial skeleton EXAMINATION: XR DEXA axial skeleton HISTORY: Surgical Menopause COMPARISON: DEXA bone densitometry 06/13/2022 TECHNIQUE: Dual-energy X-ray absorptiometry (DXA) was performed. FINDINGS: SPINE ANALYSIS: Average bone mineral density is 1.316 g/cm2. T-score (standard deviation relative to young adult mean): 1.1 . -7.7% change since prior study. HIP ANALYSIS: Lowest bone mineral density is within the left femoral neck, 0.844 g/cm2. T-score (standard deviation relative to young adult mean): -1.4 . -7.6% change since prior study. XR/XR DEXA axial skeleton IMPRESSION: World Health Organization Classification: Osteopenia - Moderate Fracture Risk FRAX: Cannot calculate. Pharmacologic treatment recommendations * No uniform recommendation applies to all patients. Management plans must be individualized. * Consider initiating pharmacologic treatment in postmenopausal women and men >= 50 years of age who have the following: Primary fracture prevention: * T-score <= - 2.5 at the femoral neck, total hip, lumbar spine, 33% radius (some uncertainty with existing data) by DXA. * Low bone mass (osteopenia: T-score between - 1.0 and - 2.5) at the femoral neck or total hip by DXA with a 10-year hip fracture risk >= 3% or a 10-year major osteoporosis-related fracture risk >= 20% (i.e., clinical vertebral, hip, forearm, or proximal humerus) based on the US-adapted FRAXregistered model. Secondary fracture prevention: * Fracture of the hip or vertebra regardless of BMD [4, 5]. * Fracture of proximal humerus, pelvis, or distal forearm in persons with low bone mass (osteopenia: T-score between - 1.0 and - 2.5). The decision to treat should be individualized in persons with a fracture of the proximal humerus, pelvis, or distal forearm who do not have osteopenia or low BMD [12, 13]. Xiang MS, Robert SL, Liseth KL, Ezequiel EM, Yomaira KG, AJ, Natalie ES. The clinician's guide to prevention and treatment of osteoporosis. Osteoporos Int. 2021;3310):4193-6670. doi: 10.1007/p60603-617-54010-a. Epub 2021Jan 09. Erratum in: Osteoporos Int. 2021Apr 10;: PMID: 61014516; PMCID: CBP8738709. Electronically authenticated by: LARRY BERKOWITZ Date: 07/12/2024 10:24 Dictated By: Larry Berkowitz M.D. Signed By: 07/12/24 1026 DD/ 1024 TD/TT: Agricultural Engineering Technician: [place] [address] XRay Report Signed Patient: SHILPA HOPPER MR#: [id number] : 1965 Acct:[id number] Age/Sex: 58 / F ADM Date: 07/11/24 Loc: BRANDEN Attending Dr: Tricia Constantino D.O. Ordering Physician: Tricia Constantino D.O. Date of Service: 07/11/24 Procedure(s): XR DEX A axial skeleton Accession Number(s): [id number] cc: Tricia Constantino D.O. ; [place] M.D. [place] [address] Patient Name: SHILPA HOPPER MRN: [facility]:[id number] date: 1965 Sex: F Assigned Patient Location: [facility] Current Patient Location: Accession/Order Number: [id number] Exam Date: 07:58 Report Date: 07/12/2024 10:24 At the request of: TRICIA CONSTANTINO Procedure: XR DEXA axial skeleton EXAMINATION: XR DEXA axial skeleton HISTORY: Surgical Menopause COMPARISON: DEXA bon e densitometry 06/13/2022 TECHNIQUE: Dual-ener gy X-ray absorptiometry (DXA) was performed. FINDINGS: SPINE ANALYSIS: Average bone mineral density is 1.316 g/cm2. T-score (standard deviation relative to young adult mean): 1.1 . -7.7% change since prior study. HIP ANALYSIS: Lowest bone mineral density is within the left femoral neck, 0.844 g/cm2. T-score (standard deviation relative to young adult mean): -1.4 . -7.6% change since prior study. XR/XR DEXA axial skeleton IMPRESSION: World Health Organization Classification: Osteopenia - Moderate Fracture Risk FRAX: Cannot calculate. Pharmacologic treatment recommendations * No uniform recommendation applies to all patients. Management plans must be individualized. * Consider initiatin g pharmacologic treatment in postmenopausal women and men >= 50 years of age w ho have the following: Primary fracture prevention: * T-score <= - 2.5 a t the femoral neck, total hip, lumbar spine, 33% radius (some uncertainty wi th existing data) by DXA. * Low bone mass (osteopenia: T-score between - 1.0 and - 2.5) at the femoral neck or total hip by DXA with a 10-year hip fracture risk >= 3% or a 10-year major osteoporosis-related fracture risk >= 20% (i.e., clinical vertebral, hip, forearm, or proximal humerus) based on the US-adapted FRAXregistered model. Secondary fracture prevention: * Fracture of the hi p or vertebra regardless of BMD [4, 5]. * Fracture of proxim al humerus, pelvis, or distal forearm in persons with low bone mass (osteopeni a: T-score between - 1.0 and - 2.5). The decision to treat should be individualized in persons with a fracture of the proximal humerus, pelvis, or distal forearm who do not have osteopenia or low BMD [12, 13]. Xiang MS, Robert SL, Liseth KL, Ezequiel EM, Yomaira KG, AJ, Natalie ES. The clinician's guid e to prevention and treatment of osteoporosis. Osteoporos Int. 2021;33(10):2306-6181. doi: 10.1007/n34396-380-354 00-y. Epub 2021Jan 09. Erratum in: Osteoporos Int. 2021Apr 10;: PMID: 14427158; PMCID: [id number]. Electronically authenticated by: LARRY BERKOWITZ Date: 07/12/2024 10:24 Dictated By: Larry Berkowitz M.D. Signed By: 07/12/24 1026 DD/ 1024 TD/TT: Agricultural Engineering Technician: IGP,Aptima HPV,Age Gdln Reviewed date:07/12/2024 08:06:13 PM Interpretation: Performing Lab: Notes/Report: SPATULA-ALONE VAGINA [facility] , Age Gdln ACOG Testing Note . [address] [place] [address] No. of containers..01 ThinPrep Vial FLAG LEGEND: 01 =G Lalo Jimenez MD, TESTS RESULT FLAG UNITS REF RANGE LAB L-Low Normal,H-High Normal,LL-Alert Low,HH-Alert High Source.............Vagi na <-Panic Low,>-Panic High,A-Abnormal,AA-Crit ical Abnormal Age Algo ACOG Shilpa... 30-65 01 Clinician Provided Cytology Information Performed at: IGP, Aptima HPV, rfx 16/18,45 Note . [address] [place] [address] FLAG LEGEND: DIAGNOSIS: Note: Note 02 This liquid based ThinPrep(R) pap test was screened with Specimen adequacy: 02 <-Panic Low,>-Panic High,A-Abnormal,AA-Crit ical Abnormal Test Methodology: Note 02 TESTS RESULT FLAG UNITS REF RANGE LAB distinguished in cases of atrophy. NEGATIVE FOR INTRAEPITHELIAL LESION OR MALIGNANCY. HPV Genotype Reflex Note 02 detection of premalignant and malignant conditions of the The Pap smear is a screening test designed to aid in the the use of an image guided system. should not be used as the sole means of detecting cervical Satisfactory for evaluation. Endocervical component may not be Corby Nails, Gas Cutting Machine Operator (ASCP) Performed by: 10 16 WB [facility] [place] Katie Jimenez MD, Performed at: cancer. Both false-positive and false-negative reports do Criteria not met, HPV Genotype not performed. uterine cervix. It is not a diagnostic procedure and occur. L-Low Normal,H-High Normal,LL-Alert Low,HH-Alert High HPV Aptima Negative Negative Ceramic Worker: Katie Jimenez MD, Phone: [phone] This nucleic acid amplification test detects fourteen high- [address] [place], [place] [id number] [address] [facility] [id number] risk HPV types (16,18,31,33,35,39,45,5 1,52,56,58,59,66,68) Performed at: - [facility] Ceramic Worker: Katie Jimenez MD, Phone: [phone] without differentiation. Performed at: =[facility] Performing Lab: see note - [facility] LB MM tomosynthesis screening B I Reviewed date:06/22/2024 08:53:03 PM Interpretation: Performing Lab: Notes/Report: Source Facility: [place] [address] Mammography Report Signed Patient: SHILPA HOPPER MR#: [id number] : 1965 Acct:[id number] Age/Sex: 58 / F ADM Date: 06/22/24 Loc: MAMMO Attending Dr: Tricia Constantino D.O. Ordering Physician: Tricia Constantnio D.O. Results: Date of Service: 06/22/24 Follow Up: Procedure(s): MM tomosynthesis screening BI Accession Number(s): [id number] cc: Tricia Constantino D.O.; All San M.D. Patient Name: SHILPA HOPPER MR#: [id number] : 1965 Exam Date: 06/22/2024 Ordering Doctor: DR Tricia Constantino . RADIOLOGY REPORT PROCEDURE: MM TOMOSYNTHESIS SCREENING BI COMPARISON: MM TOMOSYNTHESIS SCREENING BI, 06/15/2023. MG MAMM SCREEN 3D MIGUEL CAD, 06/13/2022. MG MAMM SCREEN MIGUEL W CAD, 06/06/2021. MG MAMM MIGUEL SCRN W CAD DIG, 01/27/2013. INDICATIONS: Screening Calculator Name NCI Breast Cancer Risk Assessment Tool 5 Year Breast Cancer Risk 1.20% Lifetime Breast Cancer Risk 8.10% Personal Breast Cancer No Personal Ovarian Cancer No Treatments None Family Cancers None LOCATION: [facility] BREAST COMPOSITION: The breasts are heterogeneously dense,which may obscure small masses. FINDINGS: DIAGNOSTIC CATEGORY 2--BENIGN FINDING: RIGHT BREAST: No significant suspicious finding. No significant change has occurred. LEFT BREAST: No significant suspicious finding. Scattered benign-appearing calcifications are present. No significant change has occurred. RECOMMENDATIONS: ROUTINE MAMMOGRAM AND CLINICAL EVALUATION IN 12 MONTHS. PLEASE NOTE: A NORMAL MAMMOGRAM DOES NOT EXCLUDE THE POSSIBILITY OF BREAST CANCER. A CLINICALLY SUSPICIOUS PALPABLE LUMP SHOULD BE BIOPSIED. Dictated by: Larry Berkowitz M.D. on 06/22/2024 at 15:08 Approved by: Larry Berkowitz M.D. on 06/22/2024 at 15:10 Dictated By: Larry Berkowitz M.D. Signed By: 06/22/24 1511 DD/ 1510 TD/TT: Agricultural Engineering Technician: [place] [address] Mammography Report Signed Patient: SHILPA HOPPER MR#: [id number] : 1965 Acct:[id number] Age/Sex: 58 / F ADM Date: 06/22/24 Loc: MAMMO Attending Dr: Tricia Constantino D.O. Ordering Physician: Tricia Constantino D.O. Results: Date of Service: 06/22/24 Follow Up: Procedure(s): MM tomosynthesis screening BI Accession Number(s): [id number] cc: Tricia Constantino D.O. ; All San M.D. Patient Name: SHILPA HOPPER MR#: [id number] : 1965 Exam Date: 06/22/2024 Ordering Doctor: DR Tricia Constantino . RADIOLOGY REPORT PROCEDURE: MM TOMOSYNTHESIS SCREENING BI COMPARISON: MM TOMOSYNTHESIS SCREENING BI, 06/15/2023. MG MAMM SCREEN 3D MIGUEL CAD, 06/13/2022. MG MAMM SCREEN MIGUEL W CAD, 06/06/2021. MG MAMM MIGUEL SCRN W CAD DIG, 01/27/2013. INDICATIONS: Screening Calculator Name NCI Breast Cancer Risk Assessment Tool 5 Year Breast Cancer Risk 1.20% Lifetime Breast Canc er Risk 8.10% Personal Breast Canc er No Personal Ovarian Cancer No Treatments None Family Cancers None LOCATION: [facility] BREAST COMPOSITION: The breasts are heterogeneously dense,which may obscure small masses. FINDINGS: DIAGNOSTIC CATEGORY 2--BENIGN FINDING: RIGHT BREAST: No significant suspicious finding. No significant change has occurred. LEFT BREAST: No significant suspicious finding. Scattered benign-appearing calcifications are present. No significant change has occurred. RECOMMENDATIONS: ROUTINE MAMMOGRAM AN D CLINICAL EVALUATION IN 12 MONTHS. PLEASE NOTE: A VANNA L MAMMOGRAM DOES NOT EXCLUDE THE POSSIBILITY OF BREAST CANCER. A CLINICALLY SUSPICIOUS PALPABLE LUMP SHOULD BE BIOPSIED. Dictated by: Larry Berkowitz M.D. on 06/22/2024 at 15:08 Approved by: Larry Berkowitz M.D. on 06/22/2024 at 15:10 Dictated By: Larry Berkowitz M.D. Signed By: 06/22/24 1511 DD/ 1510 TD/TT: Agricultural Engineering Technician: GLYCOHEMOGLOBIN A1C Reviewed date:04/04/2025 04:20:06 PM Interpretation: Performing Lab: Notes/Report: [facility] , Glycohemoglobin A1C 5.2 4.5-6.2 % ADA RECOMMENDED LIMIT 4.0 - 6.0 ADA THERAPEUTIC TARGET < 7.0 > 7.0 ACTION SUGGESTED Estimated Average Glucose 103 Performing Lab: see note ML - [facility] LB IRON Reviewed date:04/04/2025 04:20:06 PM Interpretation: Performing Lab: Notes/Report: [facility] , Iron 95.0 50.0-170.0 ug/dL Performing Lab: see note ML - [facility] Reason For Referral No Information Medications Medication SIG (Take, Route, Frequency, Duration) Notes Start Date End Date Status Magnesium Active Aspirin 81 Active Diclofenac Sodium 75 MG 1 tablet as need ed Orally Twice a day for 90 days 04/04/2025 Active Multivitamin Active Vitamin D (Cholecalciferol) 25 MCG (1000 UT) 1 capsule Orally Once a day for 30 days 02/01/2024 Active Social History Tobacco Use: Social History Observation Description Date Details (start date - stop date) Never Smoker NA - NA Tobacco Use/Smoking Question Answer Notes Patient is a nonsmoker Alcohol Screen (Audit-C) Question Answer Notes Did you have a drink contain ing alcohol in the past year? Yes How often did you have 6 or more drinks on one occasion in the past year? Never (0 point) How many drinks did you have on a typical day when you were drinking in the past year? 1 or 2 drinks (0 point) How often did you have a dri nk containing alcohol in the past year? Less than monthly (1 point) Points 1 Interpretation Negative AUDIT-C (Standard) Question Answer Notes Did you have a drink containing alcohol in the p ast year? No Points 0 Interpretation Negative Problems Problem Type SNOMED Code ICD Code Onset Dates Problem Status W/U Status Risk Notes Problem [id number] Spinal stenosis, cervical region (M48.02) Active confirmed Problem 42606708 Paresthesia of skin (R20.2) Active confirmed Problem Osteopenia (379376755) Osteopenia (M85.80) Active confirmed Problem Well adult (008628720) Well adult (Z00.00) Active confirmed Problem Paresthesia (29826761) Paresthesia (R20.2) Active confirmed Problem Mixed anxiety and depressive disorder (266504198) Anxiety and depression (F41.9) Active confirmed Problem 42348235 Perineural cyst (G96.191) Active confirmed Vital Signs Blood pressure diastolic 72 mm Hg 04/04/2025 Height 67 in 04/04/2025 Blood pressure systolic 112 mm Hg 04/04/2025 Weight 152.8 lbs 04/04/2025 BMI 23.93 kg/m2 04/04/2025 Procedures Procedure Date Ordered Date Performed Result Body Sit e Holter Monitor - 3 days up to 14 days 04/04/2025 N/A Encounters Encounter Location Date Provider Diagnosis [address] [address] 04/04/2025 Selvin Hoy Well adult Z00.00 an d Palpitation R00.[address] [address] 04/04/2025 Selvin Hoy Abnormal blood chemistry R79.9 [address] [place] [address] [place] [address] 04/05/2025 Selvin Hoy Well adult Z00.00 Assessments Encounter Date Diagnosis (ICD Code) Assessment Notes Treatment Notes Treatment Clinical Notes Section Notes 04/04/2025 Palpitation (ICD-10 - R00.2) 04/04/2025 Well adult (ICD-10 - Z00.00) 04/04/2025 Abnormal blood chemistry (ICD-10 - R79.9) 04/05/2025 Well adult (ICD-10 - Z00.00) Plan Of Treatment Pending Test Test Name Order Date HEMOGLOBIN A1C (GLYCO) 04/04/2025 IRON, TOTAL 04/04/2025 LIPID PANEL (CHOL/TRIG/HDL/LDL) 04/04/20 25 MRI Brain w/wo contrast * 03/09/2023 MRI Cervical Spine w/wo contrast 023 CBC AUTO DIFF 04/04/2025 MRI LSPINE WO W CON 04/17/2023 MRI TSPINE WO CON 04/17/2023 US CAROTID ART MIGUEL 03/09/2023 XR CSPINE MIN 4 VIEWS 03/22/2023 XR SACRUM_COCCYX 03/22/2023 XR TSPINE MIN 4 VIEWS 03/22/2023 THYROID PANEL (T4/TSH/FREE T3) 5 XR LSPINE MIN 4 VIEWS 03/22/2023 ECHOCARDIO M/2D COMPLETE 03/09/2023 Holter Monitor - 3 days up to 14 days CMP (COMP MET MAYS) w/eGFR CKD-EPI 2024 CBC WITH DIFF 04/04/2025 Insurance Providers Payer Name Payer Address Payer Phone Subscriber Number Group Number Insured Name Patient Relationship to Insured Coverage Start Date Coverage End Date MMO [employer] [address] [place] [phone] [id number] Shilpa Hopper Self - patient is the insured 2 Medical (General) History Medical History History ICD Code Anxiety and depression F41.9 Surgical History Surgery Date(Month/Year) Lipoma excision Hysterectomy 2018 Umbilical Hernia repair 1998 T&A
--- OUTSIDE RECORDS SUMMARY | 2025-05-16 08:15 | XMS_ITS | Encounter Summary ---
Author Organization [facility] Address [address] [place] [address] Care Team Providers Care Thread Cutter Tender Name Role Phone All San MD Primary Care Provider [phone] Encounter Details Date Type Department Care Team (Late Contact Info) Description 06/15/2023 Clinisync Result Encounter [facility] External Department Unsolicited Tricia Constantino, DO [address] [place], [place] [id number] Social History Tobacco Use Types Packs/Day Years Used Date Smoking Tobacco: Never Assessed Comments Unknown Sex and Gender Information Value Date Recorded Sex Assigned at Female 06/15/2023 9:33 AM EDT Legal Sex Female 11:47 PM EDT Gender Identity Female 06/15/2023 9:33 AM EDT Sexual Orientation Straight 06/15/2023 9: 33 AM EDT COVID-19 Exposure Response Date Recorded In the last 10 days, have yo u been in contact with someone who was confirmed or suspected to have Coronavirus/COVID-19? No / Unsure 06/15/2023 9:42 AM EDT documented as of this encounter Plan of Treatment Upcoming Encounters Date Type Department Care Team (Late st Contact Info) Description 07/31/2025 8:30 AM EST Office [facility] [address] [place] [phone] Tricia Constantino DO [address] [place], [place] [phone] documented as of this encounter Procedures Procedure Name Priority Date/Time Associated Diagnosis Comments MM TOMOSYNTHESIS SCREENING BI 06/15/2023 12:53 PM EDT documented in this encounter Results * MM TOMOSYNTHESIS SCREENING BI (06/15/2023 12:53 PM EDT) Anatomical Region Laterality Modality Other 06/15/2023 12:5 3 PM EDT Narrative 06/15/2023 12:53 [place] [address] Mammography Report Signed Patient: SHILPA HOPPER MR#: [id number] : 1965 Acct:[id number] Age/Sex: 57 / F ADM Date: 06/15/23 Loc: MAMMO Attending Dr: Tricia Constantino D.O. Ordering Physician: Tricia Constantino D.O. Results: Date of Service: 06/15/23 Follow Up: Procedure(s): MM tomosynthesis screening BI Accession Number(s): [id number] cc: Tricia Constantino D.O.; All San M.D. Patient: SHILPA HOPPER. Exam Date: 06/15/2023 : 1965 Gender:F Ordering : DR TRICIA CONSTANTINO . Admission #: [id number] Family : DR All San . Order #: [id number] CLICK HERE TO VIEW EXAM RADIOLOGY REPORT PROCEDURE: MM TOMOSYNTHESIS SCREENING BI COMPARISON: MG MAMM SCREEN MIGUEL W CAD, 06/06/2021. MG MAMM SCREEN 3D MIGUEL CAD, 06/13/2022. INDICATIONS: Screening Calculator Name NCI Breast Cancer Risk Assessment Tool 5 Year Breast Cancer Risk 1.20% Lifetime Breast Cancer Risk 8.30% Personal Breast Cancer No Personal Ovarian Cancer No Treatments None Family Cancers None LOCATION: [facility] BREAST COMPOSITION: Heterogeneously dense,which may obscure small masses. FINDINGS: DIAGNOSTIC CATEGORY 2--BENIGN FINDING. NO CHANGE FROM COMPARISON. Scattered benign-appearing nodules are present. Scattered benign-appearing calcifications are present. Scattered benign-appearing lymph nodes are present. RIGHT BREAST: No significant suspicious finding. LEFT BREAST: No significant suspicious finding. RECOMMENDATIONS: ROUTINE MAMMOGRAM AND CLINICAL EVALUATION IN 12 MONTHS. PLEASE NOTE: A NORMAL MAMMOGRAM DOES NOT EXCLUDE THE POSSIBILITY OF BREAST CANCER. A CLINICALLY SUSPICIOUS PALPABLE LUMP SHOULD BE BIOPSIED. Dictated by: Arturo Martinez MD on 06/15/2023 at 12:52 Approved by: Arturo Martinez MD on 06/15/2023 at 12:53 Dictated By: Arturo Martinez M.D. Signed By: 06/15/23 1254 DD/ 125 TD/TT: Spinner Concrete Pipe: Procedure Note Radiology, Radiologist, - 06/15/2023 [place] [address] Mammography Report Signed Patient: SHILPA HOPPER CMR#: [id number] : 1965Acct:[id number] Age/Sex: 57 / FADM Date: 06/15/23 Loc: MAMMO Attending Dr: Tricia Constantino D.O. Ordering Physician: Tricia Constantino D.O.Results: Date of Service: 06/15/23Follow Up: Procedure(s): MM tomosynthesis screening BI Accession Number(s): [id number] cc: Tricia Constantino D.O.; All San M.D. Patient: SHILPA HOPPER Exam Date: 06/15/2023 : 1965 Gender:F Ordering : DR TRICIA CONSTANTINO . Admission #: [id number] Family : DR All San . Order #: [id number] CLICK HERE TO VIEW EXAM RADIOLOGY REPORT PROCEDURE: MM TOMOSYNTHESIS SCREENING BI COMPARISON: MG MAMM SCREEN MIGUEL W CAD, 06/06/2021. MG MAMM SCREEN 3DBIL CAD, 06/13/2022. INDICATIONS: Screening Calculator Name NCI Breast Cancer Risk Assessment Tool 5 Year Breast Cancer Risk 1.20% Lifetime Breast Cancer Risk 8.30% Personal Breast Cancer No Personal Ovarian Cancer No Treatments None Family Cancers None LOCATION: [facility] BREAST COMPOSITION: Heterogeneously dense,which may obscure smallmasses. FINDINGS: DIAGNOSTIC CATEGORY 2--BENIGN FINDING. NO CHANGE FROM COMPARISON. Scattered benign-appearing nodules are present. Scatteredbenign-appearing calcifications are present. Scattered benign-appearing lymph nodes are present. RIGHT BREAST: No significant suspicious finding. LEFT BREAST: No significant suspicious finding. RECOMMENDATIONS: ROUTINE MAMMOGRAM AND CLINICAL EVALUATION IN 12 MONTHS. PLEASE NOTE: A NORMAL MAMMOGRAM DOES NOT EXCLUDE THE POSSIBILITY OFBREAST CANCER. A CLINICALLY SUSPICIOUS PALPABLE LUMP SHOULD BE BIOPSIED. Dictated by: Arturo Martinez MD on 06/15/2023 at 12:52 Approved by: Arturo Martinez MD on 06/15/2023 at 12:53 Dictated By: Arturo Martinez M.D. Signed By:06/15/23 1254 DD/ 1253 TD/TT: Spinner Concrete Pipe: Tricia Constantino DO [facility] Final Result documented in this encounter Visit Diagnoses Not on filedocumented in this encounter Care Teams Thread Cutter Tender Relationship Specialty Start Date End Date All San MD PCP - General Family Medicine 06/22/23 documented as of this encounter
--- OUTSIDE RECORDS SUMMARY | 2025-05-16 08:15 | XMS_ITS | Continuity of Care Document ---
Author Organization [facility] Address [address] [place] [address] Insurance Providers Payer Plan Claims Address Claims Phone Policy Number Group Number Relation Employer Guarantor Name Guarantor Guarantor Address Guarantor Phone [employer] [address], [place] [address] [id number] Self Shilpa Hopper 1965 [address] [place] [id number] MMO [employer] [address], [facility] , [place] [address] tel:[phone] [id number] Self Shilpa Hopper [address] [place] [address] [place] [address] Problems Unknown Problems Results No Results Allergies, adverse reactions, alerts No known allergies and adverse reactions Medications No administered medications reported Vital Signs Date Vital Result Comment 05/26/2024 Body Height 1.4605473097727 m Body Weight 65.919292828157 kg Body Mass Index 23.4 kg/m2 Social History No smoking Hx information available
--- OUTSIDE RECORDS SUMMARY | 2025-05-16 08:16 | XMS_ITS | Clinical Summary ---
Author Organization [facility] Address [address] [place], [place] [address] Care Team Providers Care Hotel Maintenance Engineer Name Role Phone All San MD Unavailable All San MD Primary Care Provider [phone] Social History Tobacco Use Types Packs/Day Years Used Date Smoking Tobacco: Never Assessed PHQ-2 Answer Date Recorded PHQ-2 score 0 05/26/2023 Area Deprivation Index Answer Date Balbir rded National Score (1-100), lower number is lower ri sk 53 05/29/2023 State Score (1-10), lower number is lower risk 3 05/29/2023 Data from: https://www.neighborhoodatlas.medicine.[facility].edu/. Last address used for calculation [id number] 05/29/2023 Comments Unknown Sex and Gender Information Value Date Recorded Sex Assigned at Female 05/26/2023 8:30 AM EDT Legal Sex Female 7:25 AM EDT Gender Identity Female 05/26/2023 8:30 AM EDT Sexual Orientation Straight 05/26/2023 8: 30 AM EDT Plan of Treatment Health Maintenance Due Date Last Done Comments Anxiety Screening 1985 Depression Screening 1985 HIV Screening 1985 Hepatitis C Screening 1985 DTaP,Tdap,Td Vaccine (1 - Tdap) 1986 Hepatitis B Vaccine (1 of 3 - 19+ 3-dose series) 09/01 Cervical Cancer Screening [address] Colonography 2012 Cologuard (FIT-DNA) 2012 Colonoscopy 2012 Colorectal Cancer Screening 2012 Diabetes Screening 2012 Fecal Occult Blood 2012 Lipid Screening 2012 Sigmoidoscopy 2012 Pneumococcal Vaccine: 50+ (1 of 1 - PCV) 2017 Shingrix Vaccine (1 of 2) 2017 Influenza Vaccine (#1) 2025 08/08/2022 Insurance O [employer] PPO Care Teams Hotel Maintenance Engineer Relationship Specialty Start Date End Date All San MD [address] [place] [address] PCP - General Family Medicine 05/13/23 All San MD [address] [place] [address] Referring Family Medicine 05/13/23
--- OUTSIDE RECORDS SUMMARY | 2025-05-16 08:17 | XMS_ITS | Encounter Summary ---
Author Organization [facility] Address [address] [place] [address] Care Team Providers Care Information Security Director Name Role Phone All San MD Primary Care Provider [phone] Encounter Details Date Type Department Care Team (Late Contact Info) Description 07/12/2024 Clinisync Result Encounter [facility] External Department Unsolicited Tricia Constantino DO [address] [place] [address] Social History Tobacco Use Types Packs/Day Years Used Date Smoking Tobacco: Never Assessed Comments No Sex and Gender Information Value Date Recorded Sex Assigned at Female 06/15/2023 9:33 AM EDT Legal Sex Female 11:47 PM EDT Gender Identity Female 06/15/2023 9:33 AM EDT Sexual Orientation Straight 06/15/2023 9: 33 AM EDT documented as of this encounter Miscellaneous Notes * Result Encounter Note - Trisha Garibay LPN - 07/12/2024 10:28 AM EDT Verified with pt that she is taking both meds and she is. documented in this encounter Plan of Treatment Upcoming Encounters Date Type Department Care Team (Late Contact Info) Description 07/31/2025 8:30 AM EST Office Visit [facility] [address] [place] [phone] Tricia Constantino DO [address] [place] [address] Dr Wanda Delgadillo [place] [phone] (work) documented as of this encounter Procedures Procedure Name Priority Date/Time Associated Diagnosis Comments XR DEXA AXIAL SKELETON 07/12/2024 10:24 AM EDT documented in this encounter Results * XR DEXA AXIAL SKELETON (07/12/2024 10:24 AM EDT) Anatomical Region Laterality Modality Other 07/12/2024 10:2 4 AM EDT Narrative 07/12/2024 10:26 AM EDT [address] [address] XRay Report Signed Patient: SHILPA HOPPER MR#: [id number] : 1965 Acct:[id number] Age/Sex: 58 / F ADM Date: 07/11/24 Loc: RAD Attending Dr: Tricia Constantino D.O. Ordering Physician: Tricia Constantino D.O. Date of Service: 07/11/24 Procedure(s): XR DEXA axial skeleton Accession Number(s): [id number] cc: Tricia Constantino D.O.; All San M.D. [address] [address] Patient Name: SHILPA HOPPER MRN: [id number] date: 1965 Sex: F Assigned Patient Location: [facility] Current Patient Location: Accession/Order Number: [id number] Exam Date: 07/11/2024 07:58 Report Date: 07/12/2024 [...] prevention and treatment of osteoporosis. Osteoporos Int. 2021;33(10):9349-2691. doi: 10.1007/k19135-262-95039-g. Epub 2021Jan 09. Erratum in: Osteoporos Int. 2021Apr 10;: PMID: 27529291; PMCID: [id number]. Electronically authenticated by: LARRY BERKOWITZ Date: 07/12/2024 10:24 Dictated By: Larry Berkowitz M.D. Signed By: 07/12/24 1026 DD/ 1024 TD/TT: Dye Box Operator: Procedure Note Radiology, Radiologist, - 07/12/2024 [place] [address] XRay Report Signed Patient: SHILPA HOPPER CMR#: [id number] : 1965Acct:[id number] Age/Sex: 58 / FADM Date: 07/11/24 Loc: RAD Attending Dr: Tricia Constantino D.O. Ordering Physician: Tricia Constantino D.O. Date of Service: 07/11/24 Procedure(s): XR DEXA axial skeleton Accession Number(s): [id number] cc: Tricia Constantino D.O.; All San M.D. [address] [place] [address] Patient Name: SHILPA HOPPER MRN: [id number] date: 1965 Sex: F Assigned Patient Location: [facility] Current Patient Location: Accession/Order Number: [id number] Exam Date: 07/11/2024 07:58 Report Date: 07/12/2024 10:24 At the request of: TRICIA CONTSANTINO Procedure: XR DEXA axial skeleton EXAMINATION: XR [...] World Health Organization Classification: Osteopenia - Moderate FractureRisk FRAX: Cannot calculate. Pharmacologic treatment recommendations * No uniform recommendation applies to all patients. Management plans mustbe individualized. * Consider initiating pharmacologic treatment in postmenopausal women andmen >= 50 years of age who have the following: Primary fracture prevention: * T-score <= - 2.5 at the femoral neck, total hip, lumbar spine, 33%radius (some uncertainty with existing data) by DXA. * Low bone mass (osteopenia: T-score between - 1.0 and - 2.5) at thefemoral neck or total hip by DXA with a 10-year hip fracture risk >= 3% or [id number] major osteoporosis-related fracture risk >= 20% (i.e., clinical vertebral, hip, forearm, or proximal humerus) based on the US-adapted FRAXregisteredmodel. Secondary fracture prevention: * Fracture of the hip or vertebra regardless of BMD [4, 5]. * Fracture of proximal humerus, pelvis, or distal forearm in persons withlow bone mass (osteopenia: T-score between - 1.0 and - 2.5). The decision totreat should be individualized in persons with a fracture of the proximalhumerus, pelvis, or distal forearm who do not have osteopenia or low BMD [12, 13]. Xiang MS, Robert SL, Liseth KL, Ezequiel EM, Yomaira KG, AJ,Natalie ES. The clinician's guide to prevention and treatment of osteoporosis.Osteoporos Int. 2021;33(10):5342-8700. doi: 10.1007/m46312-391-80982-j. Ep. Erratum in: Osteoporos Int. 2021Apr 10;: PMID: 51598612; PMCID: [id number]. Electronically authenticated by: LARRY BERKOWITZ Date: 07/12/2024 10:24 Dictated By: Larry Berkwoitz M.D. Signed By:07/12/24 1026 DD/ 1024 TD/TT: Dye Box Operator: Tricia Vira DO [facility] Final Result documented in this encounter Visit Diagnoses Not on filedocumented in this encounter Care Teams Information Security Director Relationship Specialty Start Date End Date All San MD PCP - General Family Medicine 06/22/23 documented as of this encounter
--- OUTSIDE RECORDS SUMMARY | 2025-05-16 08:17 | XMS_ITS | Clinical Summary ---
Author Organization [facility] Address [address] [place] [address] Care Team Providers Care Combat Rifle Crewmember Name Role Phone All San MD Primary Care Provider [phone] Allergies Active Allergy Reactions Criticality Noted Date Comments Penicillins Hives,Itching 06/22/2023 Medications Pediatric Multiple Vit-C-FA (pediatric multivitamin) tablet chewable split tablet Take by mouth. 10/28/2022 Active diclofenac (Voltaren) 75 MG EC tablet Take 75 mg by mouth Daily Active aspirin 81 MG EC tablet Take 81 mg by mouth. 10/28/2022 Active Calcium Carb-Cholecalcif you (CALCIUM 1000 + D PO) Take 1 tablet by mouth Daily Active Probiotic Product (PROBIOTIC 10 ULTRA STRENGTH PO) Take 1 tablet by mouth Daily Active cholecalciferol (Vitamin D-3) 20 MCG (800 UNIT) tablet Take 800 Units by mouth Daily Active Active Problems Problem Noted Date Diagnosed Date Well woman exam with routine gynecological exam 07/05/2024 Preventative health care 07/05/2024 Encounter for screening mamm ogram for malignant neoplasm of breast 07/05/2024 Family History Relation Name Status Comments Father Alive Maternal Grandfather Maternal Grandmother Mother Paternal Grandfather Paternal Grandmother Social History Tobacco Use Types Packs/Day Years Used Date Smoking Tobacco: Never Assessed Comments No Sex and Gender Information Value Date Recorded Sex Assigned at Female 06/15/2023 9:33 AM EDT Legal Sex Female 11:47 PM EDT Gender Identity Female 06/15/2023 9:33 AM EDT Sexual Orientation Straight 06/15/2023 9: 33 AM EDT Last Filed Vital Signs Vital Sign Reading Time Taken Comments Blood Pressure 118/80 07/05/2024 2:27 PM EDT Pulse - - Temperature - - Respiratory Rate - - Oxygen Saturation - - Inhaled Oxygen Concentration - - Weight 67 kg (147 lb 12.8 oz) 07/05/2024 2:27 PM EDT Height 170.2 cm (5' 7 ) 07/05/2024 2:27 PM EDT Body Mass Index 23.15 07/05/2024 2:27 PM EDT Plan of Treatment Upcoming Encounters Date Type Department Care Team (Late st Contact Info) Description 07/31/2025 8:30 AM EST Office Visit [facility] [address] [place] [address] Darin Constantino, [address] [facility] [place] [address] Health Maintenance Due Date Last Done Comments CT Colonography 1965 Colonoscopy 1967 Colorectal Cancer Screening 1965 FIT-DNA 1967 FIT 1967 FOBT 1965 Sigmoidoscopy 1965 Influenza Vaccine (#1) 2025 3, 08/08/2022, 05/23/2021, Additional history exists Mammogram 06/22/2025 06/22/2024, 06/15/2023 Cervical Cancer Screening 06/11/2026 HPV/Cotest 06/11/2026 Pap Smear 07/05/2027 07/05/2024, 06/11/2021 Procedures Procedure Name Priority Date/Time Associated Diagnosis Comments PAP SMEAR Routine 07/05/2024 12:00 AM EDT MM TOMOSYNTHESIS SCREENING BI 06/22/2024 3:10 PM EDT from Last 3 Months or Most Recently Relevant to Health Maintenance Results * Pap Smear (07/05/2024 12:00 AM EDT) Swab Cervical swab / Unknown Vira Nurse [facility] CYTOLOGY ORDERABLES Final Result EXTERNAL LAB * MM TOMOSYNTHESIS SCREENING BI (06/22/2024 3:10 PM EDT) Anatomical Region Laterality Modality Other 06/22/2024 3:10 PM EDT Narrative 06/22/2024 3:11 PM EDT The [address] [address] Mammography Report Signed Patient: SHILPA HOPPER MR#: [id number] : 1965 Acct:[id number] Age/Sex: 58 / F ADM Date: 06/22/24 Loc: MAMMO Attending Dr: Darin Constantino D.O. Ordering Physician: Darin Constantino D.O. Results: Date of Service: 06/22/24 Follow Up: Procedure(s): MM tomosynthesis screening BI Accession Number(s): [id number] cc: Darin Constantino D.O.; All San M.D. Patient Name: SHILPA HOPPER MR#: [id number] : 1965 Exam Date: 06/22/2024 Ordering Doctor: DR Darin Constantino . RADIOLOGY REPORT PROCEDURE: MM TOMOSYNTHESIS [...] Treatments None Family Cancers None LOCATION: The [facility] BREAST COMPOSITION: The breasts are heterogeneously dense,which [...] Signed By: 06/22/24 1511 DD/ 1510 TD/TT: Patient Portal Concierge: Procedure Note Radiology, Radiologist, MD - 06/22/2024 [place] [address] Mammography Report Signed Patient: SHILPA HOPPER CMR#: [id number] : 1965Acct:[id number] Age/Sex: 58 / FADM Date: 06/22/24 Loc: MAMMO Attending Dr: Darin Constantino D.O. Ordering Physician: Darin Cosntantino D.O.Results: Date of Service: 06/22/24Follow Up: Procedure(s): MM tomosynthesis screening BI Accession Number(s): [id number] cc: Darin Constantino D.O.; All San M.D. Patient Name: SHILPA HOPPER MR#: [id number] : 1965 Exam Date: 06/22/2024 Ordering Doctor: DR Darin Constantino . RADIOLOGY REPORT PROCEDURE: MM TOMOSYNTHESIS SCREENING BI COMPARISON: MM TOMOSYNTHESIS SCREENING BI, 06/15/2023. MG MAMM DEMYAQ3B MIGUEL CAD, 06/13/2022. MG MAMM SCREEN MIGUEL W CAD, 06/06/2021. MG MAMM BILSCRN W CAD DIG, 01/27/2013. INDICATIONS: Screening Calculator Name NCI Breast Cancer Risk Assessment Tool 5 Year Breast Cancer Risk 1.20% Lifetime Breast Cancer Risk 8.10% Personal Breast Cancer No Personal Ovarian Cancer No Treatments None Family Cancers None LOCATION: [facility] BREAST COMPOSITION: The breasts are heterogeneously dense,which may obscure small masses. FINDINGS: DIAGNOSTIC CATEGORY 2--BENIGN FINDING: RIGHT BREAST: No significant suspicious finding. No significant changehas occurred. LEFT BREAST: No significant suspicious finding. Scatteredbenign-appearing calcifications are present. No significant change has occurred. RECOMMENDATIONS: ROUTINE MAMMOGRAM AND CLINICAL EVALUATION IN 12 MONTHS. PLEASE NOTE: A NORMAL MAMMOGRAM DOES NOT EXCLUDE THE POSSIBILITY OFBREAST CANCER. A CLINICALLY SUSPICIOUS PALPABLE LUMP SHOULD BE BIOPSIED. Dictated by: Larry Berkowitz M.D. on 06/22/2024 at 15:08 Approved by: Larry Berkowitz M.D. on 06/22/2024 at 15:10 Dictated By: Larry Berkowitz M.D. Signed By:06/22/24 1511 DD/ 1510 TD/TT: Patient Portal Concierge: [facility] Vira DO [facility] Final Result from Last 3 Months or Most Recently Relevant to Health Maintenance Insurance [employer] Care Teams Combat Rifle Crewmember Relationship Specialty Start Date End Date All San MD PCP - General Family Medicine 06/22/23
--- OUTSIDE RECORDS SUMMARY | 2025-05-16 08:17 | XMS_ITS | Encounter Summary ---
Author Organization [facility] Address [address] [place] [address] Care Team Providers Care Oil Operator Name Role Phone All San MD Primary Care Provider [phone] Encounter Details Date Type Department Care Team (Late st Contact Info) Description 06/22/2024 Clinisync Result Encounter [facility] External Department Unsolicited Darin Constantino, DO [address] [place] [address] Social History Tobacco Use Types Packs/Day Years [...] 8:30 AM EST [facility] [address] [place] [address] Darin Constantino DO [address] [place] [address] documented as of this encounter Procedures Procedure Name Priority Date/Time Associated Diagnosis Comments MM TOMOSYNTHESIS SCREENING BI 06/22/2024 3:10 PM EDT documented in this encounter Results * MM TOMOSYNTHESIS SCREENING BI (06/22/2024 3:10 PM EDT) Anatomical Region Laterality Modality Other 06/22/2024 3:10 PM EDT Narrative 06/22/2024 3:11 [place] [address] Mammography Report Signed Patient: SHILPA HOPPER MR#: [id number] : 1965 Acct:[id number] Age/Sex: 58 / F ADM Date: 06/22/24 Loc: MAMMO Attending Dr: Darin Constantino D.O. Ordering Physician: Darin Constantino D.O. Results: Date of Service: 06/22/24 Follow Up: Procedure(s): MM tomosynthesis screening BI Accession Number(s): [id number] cc: Darin Constantino D.O.; All San M.D. Patient Name: SHILPA HOPPER MR#: [id number] : 1965 Exam Date: 06/22/2024 Ordering Doctor: [...] Treatments None Family Cancers None LOCATION: The [facility] BREAST COMPOSITION: The breasts are heterogeneously dense,which [...] By: Larry Berkowitz M.D. Signed By: 06/22/24 151 DD/ 09 TD/TT: Office Runner: Procedure Note Radiology, Radiologist, MD - 06/22/2024 [place] [address] Mammography Report Signed Patient: SHILPA HOPPER CMR#: [id number] : 1965Acct:[id number] Age/Sex: 58 / FADM Date: 06/22/24 Loc: MAMMO Attending Dr: Darin Constantino D.O. Ordering Physician: Darin Constantino D.O.Results: Date of Service: 06/22/24Follow Up: Procedure(s): MM tomosynthesis screening BI Accession Number(s): [id number] cc: Darin Constantino D.O.; All San M.D. Patient Name: SHILPA HOPPER MR#: [id number] : 1965 Exam Date: 06/22/2024 Ordering Doctor: DR Darin Constantino . RADIOLOGY REPORT PROCEDURE: MM TOMOSYNTHESIS SCREENING BI COMPARISON: MM TOMOSYNTHESIS SCREENING BI, 06/15/2023. MG MAMM [id number] MIGUEL CAD, 06/13/2022. MG MAMM SCREEN MIGUEL W CAD, 06/06/2021. MG MAMM BILSCRN W CAD DIG, 01/27/2013. INDICATIONS: Screening Calculator Name NCI Breast Cancer Risk Assessment Tool 5 Year Breast Cancer Risk 1.20% Lifetime Breast Cancer Risk 8.10% Personal Breast Cancer No Personal Ovarian Cancer No Treatments None Family Cancers None LOCATION: [facility] BREAST COMPOSITION: The breasts are heterogeneously dense,which [...] M.D. Signed By:06/22/24 1511 DD/ 1510 TD/TT: Office Runner: us Darin Vira DO [facility] Final Result documented in this encounter Visit Diagnoses Not on filedocumented in this encounter Care Teams Oil Operator Relationship Specialty Start Date End Date All San MD PCP - General Family Medicine 06/22/23 documented as of this encounter
--- OUTSIDE RECORDS SUMMARY | 2025-05-16 08:17 | XMS_ITS | Encounter Summary ---
Author Organization [facility] Address [address] [place] [address] Care Team Providers Care Country Manager Name Role Phone All San MD Primary Care Provider [phone] Encounter Details Date Type Department Care Team (Late Contact Info) Description 07/12/2024 Orders Only [facility] [address] [place] [phone] Edita James LPN [address] [place] [facility] Social History Tobacco Use Types Packs/Day Years [...] 07/31/2025 8:30 AM EST Office Visit [facility] [address] [place] [phone] Darin Constantino DO [address] [facility] [address] [place], [place] [id number] documented as of this encounter Procedures Procedure Name Priority Date/Time Associated Diagnosis Comments PAP SMEAR Routine 07/05/2024 12:00 AM EDT documented in this encounter Results * Pap Smear (07/05/2024 12:00 AM EDT) Swab Cervical swab / Unknown Vira [facility] CYTOLOGY ORDERABLES Final Result EXTERNAL LAB documented in this encounter Visit Diagnoses Not on filedocumented in this encounter Care Teams Country Manager Relationship Specialty Start Date End Date All San MD PCP - General Family Medicine 06/22/23 documented as of this encounter
--- OUTSIDE RECORDS SUMMARY | 2025-05-16 08:18 | XMS_ITS | Clinical Summary ---
Author Organization [facility] Address [address] [place] [address] Care Team Providers Care Leak Patcher Name Role Phone Unavailable Primary Care Provider Unavailabl e Social History Tobacco Use Types Packs/Day Years Used Date Smoking Tobacco: Never Assessed Comments Unknown Sex and Gender Information Value Date Recorded Sex Assigned at Not on file Legal Sex Female 11:49 AM EST Gender Identity Not on file Sexual Orientation Not on file Plan of Treatment Health Maintenance Due Date Last Done Comments HEPATITIS C VIRUS SCREENING 1967 TETANUS 1967 HIV SCREENING DISCUSSION 1982 HEP B VACCINE (1 of 3 - 19+ 3-dose series) 1986 TDAP (ADULT) 1986 CERVICAL CANCER SCREENING DISCUSSION 1988 LIPID SCREENING 2007 MAMMOGRAM SCREENING DISCUSSION 2007 COLORECTAL CANCER SCREENING DISCUSSION 2012 PNEUMOCOCCAL VACCINE SERIES (1 of 1 - PCV) 2017 ZOSTER (SHINGLES) VACCINE (1 of 2) 2017 COVID-19 VACCINE (1 - 2023- season) 2024 INFLUENZA VACCINE (#1) 2025
--- OUTSIDE RECORDS SUMMARY | 2025-05-16 08:20 | XMS_ITS | CCD ---
Author Organization [facility] Care Team Providers Care Director Food Safety Name Role Phone Horacio San Primary Care [...] Unavailable VIRA ., DR CLARKE Admitting Unavailable SIGEL, DR BARBARA Lloyd Consulting Unavailable VIRA ., [...] Unavailable Syedy Horacio TERESA Primary Care Provider [phone] Allergies Allergy Classification Reported Allergen(s) Allergy Type Date of Onset Reaction(s) Facility (3 sources) Penicillin; 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: [penicillin] Drug Allergy Itching (finding) [facility] [place] (4 sources) Penicillins Drug Allergy 3 Hives, [...] mg by mouth Daily Active estrogens, conjugated (long term) 0.625 mg/ml vaginal cream (4 sources) Estrogen [...] Onset: 06-16-2022 Chronic Other aftercare (1 source) retirement (current) use of aspirin; 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: [QUAD STAYER CURRENT USE OF ASPIRIN] Onset: 11-24-2022 Episodic Other aftercare (1 source) Other prison (current) drug therapy; 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: [OTH QUAD STAYER CURRENT DRUG THERAPY] Onset: 11-24-2022 Episodic Other [...] <-Panic Low,>-Panic High,A-Abnormal,AA-Critical Abnormal Performed at: 01 =[address] [phone] Katie Jimenez MD, HPV APTIMA Negative Negative [facility] Comment on above: This nucleic acid am plification test detects fourteen high- risk HPV types (16,18,31,33,35,39,45,51,52,56,58,59,66,68) without differentiation. Performed at: =[address] [id number] Crm Consultant: Katie Jimenez MD, Phone: [phone] Performed at: [address] [id number] Crm Consultant: Katie Jimenez MD, Phone: [phone] IGP, APTIMA HPV, RFX 16/18,45 Note . [facility] Comment on above: TESTS RESULT FLAG UN ITS REF RANGE LAB DIAGNOSIS: 02 NEGATIVE FOR INTRAEPITHELIAL LESION OR MALIGNANCY. Specimen adequacy: 02 Satisfactory for evaluation. Endocervical component may not be distinguished in cases of atrophy. Performed by: 02 Corby Nails Dinkey Operator Slate (ASCP) . 02 Note: Note 02 The [...] <-Panic Low,>-Panic High,A-Abnormal,AA-Critical Abnormal Performed at: [address] [address] Katie Jimenez MD, SPATULA-ALONE VAGINA [facility] Ambulatory Visit Summaryon 0 11-26-2022 Ambulatory [...] Pathology Noteon 11-24-2022 Pathology Note [id number]#1 .00CD:127 Normal [facility] Operative Reporton Operative Report [id number]#1 .00CD:127 [facility] Consent for Procedure/Surger yon 10-29-2022 Consent for Procedure/Surgery [id number] .00CD:127 Normal [facility] Facesheeton 10-29-2022 Facesheet [id number]#1 .00CD:127 Normal [facility] Ambulatory [...] [facility]23 Physician Referral [id number] .00CD:127 Normal [facility] INSULINon 10-14-2022 Insulin 6.7 uIU/mL Normal 2.6-24.9 [facility] Comment on above: Performed By: #### I NSULIN #### [facility] [address] [address] [address] Jay MORGAN BLD IMMUNO SCREENon 09-16 OCCULT BLOOD Negative Normal NEGATIVE [facility] Comment on above: Performed By: #### O BSCRN ####[facility] [address] [id number]. Jay Cortes CBC AUTO DIFFon 10-13-2022 BASO # 0.0 103/ul Normal 0.0-0.1 [facility] Comment on above: Performed By: #### C BC ####[facility] [address] [address]Dr. Jay Sebastian Basophils/100 WBC (Bld) 1.0 % Normal 0.2-2.0 [facility] Comment on above: Performed By: #### C BC ####[facility] [address] [place], [place] [address]Dr. Jay Cortes EO # 0.1 103/ul Normal 0.0-0.7 [facility] Comment on above: Performed By: #### C BC ####[facility] [address] [place], [place] [address]Dr. Jay Sebastian Eosinophils/100 WBC (Bld) 2.3 % Normal 0.9-7.0 [facility] Comment on above: Performed By: #### C BC ####[facility] [address] [place], [place] [address]Dr. Jay Cortes Erythrocyte distribution width (RBC) [Ratio] 12.7 % Normal 11.0-15.0 [facility] Comment on above: Performed By: #### C BC ####[facility] [address] [place], [place] [address]Dr. Jay Cortes Hematocrit (Bld) [Volume fraction] 39.9 % Normal 36.0-48.0 [facility] Comment on above: Performed By: #### C BC ####[facility] Bcl[address]con[address] [place], [place] [address]Dr. Jay Cortes Hemoglobin (Bld) [Mass/Vol] 13.6 g/dL Normal 12.0-16.0 [facility] Comment on above: Performed By: #### C BC ####[facility] Z[address] [place], [place] [address]Dr. Conniesabas Cortes IG # 0.01 10e3/ul Normal 0.00-0.03 [facility] Comment on above: Performed By: #### C BC ####[facility] [address] [address]Dr. Conniesabas Cortes IG % 0.3 % Normal 0.0-0.5 [facility] Comment on above: Performed By: #### C BC ####[facility] [address] [address]Dr. Conniesabas Cortes LYMPH # 1.4 103/ul Normal 1.2-3.8 [facility] Comment on above: Performed By: #### C BC ####[facility] [address] [address]Dr. Conniesabas Cortes Lymphocytes/100 WBC (Bld) 34.3 % Normal 20.5-60.0 [facility] Comment on above: Performed By: #### C BC ####[facility] [address] [place], [place] [address]DrBrad Cortes MANUAL DIFF REQ NO Normal [facility] Comment on above: Performed By: #### C BC ####[facility] [address] [phone]. Jay Sebastian MCH (RBC) [Entitic mass] 30.6 pg Normal 26.7-34.0 [facility] Comment on above: Performed By: #### C BC ####[facility] [address] [place], [place] [address]Dr. Jay Sebastian MCHC (RBC) [Mass/Vol] 34.1 g/dL Normal 29.9-35.2 [facility] Comment on above: Performed By: #### C BC ####[facility] [address] [place], [place] [address]DrBrad Conniesabas Cortes MCV (RBC) [Entitic vol] 89.7 fL Normal 81.0-99.0 [facility] Comment on above: Performed By: #### C BC ####[facility] [address] [phone] Cortes MONO # 0.3 103/ul Normal 0.3-0.8 [facility] Comment on above: Performed By: #### C BC ####[facility] [address] [phone]. Jay Cortes Monocytes/100 WBC (Bld) 6.3 % Normal 1.7-12.0 [facility] Comment on above: Performed By: #### C BC ####[facility] [address] [phone]. Jay Cortes NEUT # 2.2 103/ul Normal 1.4-6.5 [facility] Comment on above: Performed By: #### C BC ####[facility] [address] [address]Dr. Jay Cortes Neutrophils/100 WBC (Bld) 55.8 % Normal 43.0-75.0 [facility] Comment on above: Performed By: #### C BC ####[facility] [address] [address]Dr. Jay Cortes Platelet mean volume (Bld) [Entitic vol] 10.0 fL Normal 9.5-13.5 [facility] Comment on above: Performed By: #### C BC ####[facility] [address] [address]Dr. Jay Cortes PLT 265 103/ul Normal 150-450 [facility] Comment on above: Performed By: #### C BC ####[facility] [address] [phone]. Jay Cortes RBC 4.45 106/ul Normal 4.20-5.40 [facility] Comment on above: Performed By: #### C BC ####[facility] [address] [id number]. Jay Cortes WBC 4.0 103/ul Normal 4.0-11.0 [facility] Comment on above: Performed By: #### C BC ####[facility] [address] [phone]. Jay Cortes FREE THYROXINE INDEX T7on FTI 2.49 Normal 1.30-4.50 [facility] Comment on above: Performed By: #### C MP, LIPID, TSH, T7 #### [facility] [address] [address] [address] Jay Cortes T3U 35.0 % Normal 30.0-39.0 [facility] Comment on above: Performed By: #### C MP, LIPID, TSH, T7 #### [facility] [address] [address] [address] Jay Cortes T4 [Mass/Vol] 7.10 ug/dL Normal 4.80-13.90 [facility] Comment on above: Performed By: #### C MP, LIPID, TSH, T7 #### [facility] [address] [address] [address] Jay Cortes GLYCOHEMOGLOBIN A1Con 2022 ADA RECOMMENDATION SEE BELOW Normal [facility] Comment on above: Result Comment: ADA RECOMMENDED LIMIT 4.0 - 6.0 ADA THERAPEUTIC TARGET < 7.0 ACTION SUGGESTED > 7.0 Performed By: #### A 1C #### [facility] [address] [address] [address] Jay Cortes Glucose [Mass/Vol] 105 mg/dL Normal [facility] Comment on above: Performed By: #### A 1C #### [facility] [address] [address] [address] Jya Cortes HbA1c (Bld) [Mass fraction] 5.3 % Normal 4.5-6.2 [facility] Comment on above: Performed By: #### A 1C #### [facility] [address] [address] [address] Jay Cortes IRONon 10-13-2022 Iron [Mass/Vol] 90.0 ug/dL Normal 50.0-170.0 The [facility] Comment on above: Performed By: #### I ALANA ####[facility] [address] [address]Dr. Jay Cortes LIPID PROFILEon 10-13-2022 CHOL-HDL RATIO NORM SEE BELOW Normal [facility] Comment on above: Result Comment: 3.3 - 4.4 LOW RISK 4.4 - 7.1 AVERAGE RISK 7.1 - 11.0 MODERATE RISK >11.0 HIGH RISK Performed By: #### C MP, LIPID, TSH, T7 #### [facility] [address] [place] [address] Dr. Jay Cortes Cholesterol [Mass/Vol] 175 mg/dL Normal <=200 [facility] Comment on above: Performed By: #### C MP, LIPID, TSH, T7 #### [facility] [address] [place] [address] Dr. Jay Cortes Cholesterol in HDL [Mass/Vol] 72 mg/dL Critically high 40-60 [facility] Comment on above: Performed By: #### C MP, LIPID, TSH, T7 #### [facility] [address] [place] [address] Dr. Jay Cortes Cholesterol in LDL [Mass/Vol] 88.0 mg/dL Normal [facility] Comment on above: Performed By: #### C MP, LIPID, TSH, T7 #### [facility] [address] [place] [address] Dr. Jay Cortes Cholesterol.total/Ch olesterol in HDL [Mass ratio] 2.4 {ratio} Normal [facility] Comment on above: Performed By: #### C MP, LIPID, TSH, T7 #### [facility] [address] [place] [address] Dr. Jay Cortes HDL NORMAL > or = 60 mg/dl - LO W CARDIOVASCULAR RISK <40 mg/dl - HIGH CARDIOVASCULAR RISK Normal [facility] Comment on above: Performed By: #### C MP, LIPID, TSH, T7 #### [facility] [address] [place] [address] Dr. Jay Cortes LDL CALC NORMAL SEE BELOW Normal The [facility] Comment on above: Result Comment: <100 mg/dl OPTIMAL 100 - 129 mg/dl NEAR OR ABOVE OPTIMAL 130 - 159 mg/dl BORDERLINE HIGH 160 - 189 mg/dl HIGH >190 mg/dl VERY HIGH Performed By: #### C MP, LIPID, TSH, T7 #### [facility] [address] [place] [address] Dr. Jay Cortes Triglyceride [Mass/Vol] 75 mg/dL Normal <=150 [facility] Comment on above: Performed By: #### C MP, LIPID, TSH, T7 #### [facility] [address] [place] [address] Dr. Jay Cortes VLDL CALC 15.0 mg/dL Normal [facility] Comment on above: Performed By: #### C MP, LIPID, TSH, T7 #### [facility] [address] [place] [address] Dr. Jay Cortes PROF 14(COMP METB)on 023 Albumin [Mass/Vol] 4.1 g/dL Normal 3.4-5.0 [facility] Comment on above: Performed By: #### C MP, LIPID, TSH, T7 #### [facility] [address] [place] [address] Dr. Jay Cortes Albumin/Globulin [Mass ratio] 1.2 {ratio} Normal [facility] Comment on above: Performed By: #### C MP, LIPID, TSH, T7 #### [facility] [address] [place] [address] Dr. Jay Cortes ALP [Catalytic activity/Vol] 51 U/L Normal 46-116 [facility] Comment on above: Performed By: #### C MP, LIPID, TSH, T7 #### [facility] [address] [place] [address] Dr. Jay Cortes ALT [Catalytic activity/Vol] 23 U/L Normal 14-59 [facility] Comment on above: Performed By: #### C MP, LIPID, TSH, T7 #### [facility] [address] [place] [address] Dr. Jay Cortes Anion gap [Moles/Vol] 11.4 mmol/L Normal [facility] Comment on above: Performed By: #### C MP, LIPID, TSH, T7 #### [facility] [address] [place] [address] Dr. Jay Cortes AST [Catalytic activity/Vol] 12 U/L Critically low 15-37 [facility] Comment on above: Performed By: #### C MP, LIPID, TSH, T7 #### [facility] [address] [address] [address] Jay Cortes Bilirubin [Mass/Vol] 0.3 mg/dL Normal 0.2-1.0 [facility] Comment on above: Performed By: #### C MP, LIPID, TSH, T7 #### [facility] [address] [address] [address] Jay Cortes Calcium [Mass/Vol] 8.9 mg/dL Normal 8.5-10.1 [facility] Comment on above: Performed By: #### C MP, LIPID, TSH, T7 #### [facility] [address] [address] [address] Jay Cortes Chloride [Moles/Vol] 104 mmol/L Normal 98-107 [facility] Comment on above: Performed By: #### C MP, LIPID, TSH, T7 #### [facility] [address] [address] [address] Jay Cortes CO2 [Moles/Vol] 29.5 mmol/L Normal 21.0-32.0 [facility] Comment on above: Performed By: #### C MP, LIPID, TSH, T7 #### [facility] [address] [address] [address] Jay Cortes Creatinine [Mass/Vol] 0.60 mg/dL Normal 0.55-1.02 [facility] Comment on above: Performed By: #### C MP, LIPID, TSH, T7 #### [facility] [address] [address] [address] Jay Cortes EGFR-AF [facility] LUCIAN >60 Normal >=60 [facility] Comment on above: Performed By: #### C MP, LIPID, TSH, T7 #### [facility] [address] [address] [address] Jay Cortes EGFR-NON AF [facility] LUCIAN >60 Normal >=60 [facility] Comment on above: Performed By: #### C MP, LIPID, TSH, T7 #### [facility] [address] [address] [address] Jay Cortes Globulin (S) [Mass/Vol] 3.3 g/dL Normal [facility] Comment on above: Performed By: #### C MP, LIPID, TSH, T7 #### [facility] [address] [address] [address] Jay Cortes Glucose [Mass/Vol] 103 mg/dL Normal 74-106 [facility] Comment on above: Performed By: #### C MP, LIPID, TSH, T7 #### [facility] [address] [address] [address] Jay Cortes Potassium [Moles/Vol] 3.9 mmol/L Normal 3.5-5.1 [facility] Comment on above: Performed By: #### C MP, LIPID, TSH, T7 #### [facility] [address] [place] [address] Dr. Jay Cortes Protein [Mass/Vol] 7.4 g/dL Normal 6.4-8.2 [facility] Comment on above: Performed By: #### C MP, LIPID, TSH, T7 #### [facility] [address] [address] [address] Jay Cortes Sodium [Moles/Vol] 141 mmol/L Normal 136-145 [facility] Comment on above: Performed By: #### C MP, LIPID, TSH, T7 #### [facility] [address] [address] [address] Jay Cortes Urea nitrogen [Mass/Vol] 15.0 mg/dL Normal 7.0-18.0 [facility] Comment on above: Performed By: #### C MP, LIPID, TSH, T7 #### [facility] [address] [place] [address] Dr. Jay Cortes Urea nitrogen/Creatinine [Mass ratio] 25.0 mg/mg Normal [facility] Comment on above: Performed By: #### C MP, LIPID, TSH, T7 #### [facility] [address] [place] [address] Dr. Jay Cortes TSHon 10-13-2022 TSH 0.941 uIU/mL Normal 0.358-3.740 [facility] Comment on above: Performed By: #### C MP, LIPID, TSH, T7 #### [facility] [address] [address] [address] Jay Cortes VAGINITIS/VAGINOSIS DNA PROB Tarun 06-27-2022 Wendy species Negative Normal Negative [facility] Comment on above: Performed By: #### V AGINT #### [facility] [address] [address] [address] Jay Cortes Gardnerella vaginalis Negative Normal Negative [facility] Comment on above: Performed By: #### V AGINT #### [facility] [address] [address] [address] Jay Cortes Trichomonas vaginalis Negative Normal Negative [facility] Comment on above: Performed By: #### V AGINT #### [facility] [address] [address] [address] Jay Cortes PAP ACOG PANEL 2: 30 to 65on 06-22-2022 . . Normal [facility] Comment on above: Result Comment: Perf ormed at: WB Performed By: #### 4 [id number] ####[facility] [address] [address]Dr. Jay Cortes Age Gdln ACOG Testing 30-65 Normal [facility] Comment on above: Performed By: #### 4 [id number] ####[facility] [address] [address]Dr. Jay Cortes DIAGNOSIS: Comment Normal [facility] Comment on above: Result Comment: NEGA TIVE FOR INTRAEPITHELIAL LESION OR MALIGNANCY. Performed at: WB Performed By: #### 4 [id number] ####[facility] [address] [address]Dr. Jay Cortes HPV Aptima Negative Normal Negative [facility] Comment on above: Result Comment: This nucleic acid amplification test detects fourteen high-risk HPV types (16,18,31,33,35,39,45,51,52,56,58,59,66,68) without differentiation. Performed at: =G Performed By: #### 4 [id number] ####[facility] [address] [address]Dr. Jay Cortes Methodology: Comment Normal [facility] Comment on above: Result Comment: This liquid based ThinPrep(R) pap test was screened with the use of an image guided system. Performed at: WB Performed By: #### 4 [id number] ####[facility] [address] [id number] Cortes Note: Comment Normal [facility] Comment on above: Result Comment: The Pap smear is a screening test designed to aid in the detection of premalignant and malignant conditions of the uterine cervix. It is not a diagnostic procedure and should not be used as the sole means of detecting cervical cancer. Both false-positive and false-negative reports do occur. . Performed at: WB Performed By: #### 4 [id number] ####[facility] [address] [address]DrBrad Cortes Performed by: Comment Normal [facility] Comment on above: Result Comment: Annalise Tubbs, Dinkey Operator Slate (ASCP) Performed at: WB Performed By: #### 4 [id number] ####[facility] [address] [id number] Cortes Specimen adequacy: Comment Normal [facility] Comment on above: Result Comment: Sati sfactory for evaluation. No endocervical cells are present. This is consistent with a history of hysterectomy. Performed at: WB Performed By: #### 4 [id number] ####[facility] [address] [id number] Cortes MG MAMM SCREEN 3D MIGUEL CADon 06-13-2022 MG MAMM SCREEN 3D MIGUEL CAD Patient: SHILPA OBRIEN Exam Date: 06/13/2022 : 1965 Gender:F Ordering : DR TRICIA CONSTANTINO . Admission #: [id number] Family : Order #: [id number] CLICK HERE TO VIEW EXAM RADIOLOGY REPORT [...] Treatments None Family Cancers None LOCATION: [facility] BREAST COMPOSITION: Heterogeneously dense,which may [...] Martinez MD on 06/13/2022 at 09:10 Normal [facility] XR DEXA BONE DENSITYon 06-13 XR DEXA BONE DENSITY DEXA Bone Density Study CLINICAL: Evaluate bone mineral density. Postmenopausal COMPARISON: 06/11/2020 FINDINGS: The bone density study was assessed by dual-energy x-ray absorptiometry with the [employer] scanner. The test results are expressed in [...] by: BARBARA ATKINS Date: 2022-06-13 08:30 Normal [facility] Vital Signs Date Time Vital Sign Value Performing Clinician Facility 07-05-2024 14:27-0400 Body height 170.2 cm [employer] Phone: [facility] [employer] 07-05-2024 14:27-0400 Body mass index (BMI) [Ratio] 23.15 kg/m2 [employer] Phone: [facility] [employer] 07-05-2024 14:270400 Body weight 67.04 kg [employer] Phone: [facility] 07-05-2024 14:27-0400 Diastolic blood pressure 80 mm[Hg] [employer] Phone: [facility] [employer] 07-05-2024 14:27-0400 Systolic blood pressure 118 mm[Hg] Tricia Vira DO Work Phone: [facility] 10-28-2022 15:02-0500 Blood Pressure Location Eric KRISHNAL [facility] [place] 10-28-2022 15:02-0500 Diastolic blood pressure 86 mm[Hg] Eric NILL [facility] [place] 10-28-2022 15:02-0500 Heart rate 70 /min Eric NILL [facility] [place] 10-28-2022 15:02-0500 Respiratory rate 16 /min Eric NILL [facility] [place] 10-28-2022 15:02-0500 Systolic blood pressure 122 mm[Hg] Eric KRISHNAL [facility] [place] Encounters Encounter Date Encounter Type Care Provider Facility Start: 07-05-2024 End: 07-05-2024 Bamboo flowsheet Tricia Vira DO Work Phone: [facility] Start: 07-05-2024 End: 07-12-2024 Bamboo flowsheet Tricia Vira DO Work Phone: [facility] Start: 07-05-2024 End: 07-12-2024 Clinisync Result Encounter Tricia Vira DO Work Phone: [facility] External Department Unsolicited Start: 07-05-2024 End: 07-05-2024 Patient encounter procedure Tricia Vira DO Work Phone: [facility] Start: 07-05-2024 End: 07-05-2024 Patient encounter status Tricia Vira DO Work Phone: [facility] Start: 07-05-2024 End: 07-05-2024 Periodic preventive med est patient 40-64yrs Tricia Vira DO Work Phone: [facility] Comment on above: Well [...] [facility] [address] [place] [id number] Tricia Constantino, DO [address] [place] [address] [facility] Start: 06-22-2025 Screening for malignant neoplasm of breast Mammogram [facility] Start: 07-05-2024 End: 07-05-2025 DXA Skeletal system Views for bone density DEXA bone density Imaging Routine Well woman exam with routine gynecological exam Preventative health care Surgical menopause Expected: 07/05/2024 (Approximate), Expires: 07/05/2025 [facility] Comment on above: Expected: 07/05/2024 (Approximate), Expires: 07/05/2025 Start: 07-05-2024 End: 09-04-2025 MG Breast - bilateral Screening Bilateral screening mammogram Imaging Routine Well woman exam with routine gynecological exam Preventative health care Encounter for screening mammogram for malignant neoplasm of breast Expected: 07/05/2024, Expires: 09/04/2025 [facility] Work Phone: Comment on above: Expected: 07/05/2024 , Expires: 09/04/2025 Start: 07-05-2024 End: 07-05-2024 Patient encounter procedure 07/05/2024 2:00 PM EDT Office Visit [facility] [address] [place] [id number] Tricia Constantino, DO [address] [place] [address] Arrived [facility] Comment on above: Arrived Start: 05-15-2024 Influenza vaccination Influenza Vacc ine (#1) [facility] Start: 1965 Screening for malignant neoplasm of colon [facility] THIN PREP TIS PAP AN D HR HPV DNA THIN PREP TIS PAP AND HR HPV DNA Pathology and Cytology Routine Well woman exam with routine gynecological exam Ordered: 07/05/2024 [facility] Comment on above: Ordered: 07/05/2024 Immunizations Immunization Date Immunization Notes Care Provider [facility] 07-27-2023 influenza virus vaccine, unspecified formulation Tricia Constantino DO Work Phone: [facility] 08-08-2022 influenza virus vaccine, unspecified formulation [facility] 08-17-2021 SARS-CoV-2 (COVID-19 ) mRNA-1273 vaccine Eric [facility] Comment on above: Result Comment: 2022: [id number] 12-21-2020 SARS-CoV-2 (COVID-19 ) mRNA-1273 vaccine Eric ALL[facility] 11-23-2020 SARS-CoV-2 (COVID-19 ) mRNA-1273 vaccine Eric [facility] Payers Date Payer Category Payer Private Health Insurance [employer] [id number] 1965 Unknown [id number]. 593 1967 Unknown [id number] 2.840.1.108674.3.579.2. 593 1967 Unknown [id number] [id number]. 593 1967 Unknown [id number] 2.16.840.1.322689.3.579.2. 593 1967 Unknown [id number] 2.16840.1.678649.3.579.2. 593 1967 Unknown [id number] 2.16.840.1.347908.3.579.2. 593 1967 Unknown [id number] 2.16.840.1.664808.3.579.2. 727 1967 Unknown [id number] 2.16.840.1.996175.3.579.2. 727 1967 Unknown [id number] 2.16.840.1.191717.3.579.2. 727 1959 Unknown [id number] Social History Date Type Detail Facility Start: 10-28-2022 Tobacco smoking status Never smoked tobacco (finding) [facility] Tobacco smoking status Never [facility] Sex Assigned At Female [facility] Tobacco smoking stat [facility] Tobacco smoking consumption unknown [facility] Start: 1965 Sex assigned at Female [facility] Start: 06-15-2023 Gender identity Identifies as female gender (finding) [facility] Start: 06-15-2023 Sexual orientation Heterosexual (finding) [facility] Functional Status Date Assessment Result [...] woman exam with routine gynecological exam 07/05/2024 [facility] care 07/05/2024 Encounter for screening mammogram for [...] nursing note reviewed. Exam conducted with a plastic extrusion operator present. Vitals: Estimated body mass index is [...] Tricia Constantino DO documented in this encounter [facility] Clinical Note 11-19-2022 Note Date & Type [...] 2 mL. CC: Horacio San M.D. [facility] Clinical Note 10-28-2022 Note Date [...] plan excisional biopsy under local anesthesia at [facility], informed consent obtained. Follow-up No qualifying [...] data available for this section [facility] Evaluation note Note Date & Type Note [...] data available for this section [facility] Progress note Note Date & Type Note Facility Progress note No data available for this section [facility] Summary Purpose Family History No Family History Records FoundNo Family History Records Found Advance Directives No Advanced Directives Records FoundNo Advanced Directives Records Found Additional Source Comments Patient Care team informatio n (unrecognized section and content) Director Food Safety Relationship Specialty Start Date End Date Horacio San MD [address] [place] [address] PCP - General Family Medicine 06/22/23 Director Food Safety Relationship Specialty Start Date End Date Horacio San MD [address] [place] [phone] PCP - General Family Medicine 06/22/23 Director Food Safety Relationship Specialty Start Date End Date Horacio San MD [address] [place] [address] PCP - General Family Medicine 06/22/23 INFORMATION SOURCE (unrecogn ized section and content) DATE CREATED AUTHOR 12/05/2022 [facility] DATE CREATED AUTHOR AUTHOR'S ORGANIZ ATION 12/14/2022 [facility] Reason for Visit (unrecogniz ed section [...] BE BASED ON THE PRIMARY CLINICAL RECORDS. [facility] [employer] provides no warranty or guarantee of the accuracy or completeness of information in this document.
[2025-05-16 08:34] LABS: Hematocrit 41.9 % (36.0-48.0); Hemoglobin 13.8 g/dL (12.0-16.0); Immature Granulocytes Abs Auto 0.00 10^3/uL (0.00-0.03); Immature Granulocytes Pct Auto 0.0 % (0.0-0.5); Lymphocytes Absolute Auto 1.4 10^3/uL (1.2-3.8); Mean Corpuscular HGB Conc 32.9 g/dL (29.9-35.2); Mean Corpuscular Hemoglobin 30.7 pg (26.7-34.0); Mean Corpuscular Volume 93.3 fL (81.0-99.0); Platelet Count 259 10^3/uL (150-450); Red Blood Count 4.49 10^6/uL (4.20-5.40); White Blood Count 3.9 10^3/uL (4.0-11.0)
== END 2025-05-16 08:10 | disposition home or self-care (01) ==
PROVIDERS: PCP Family Medicine; Visit Provider Family Medicine
DX: R79.9 Abnormal finding of blood chemistry, unspecified (principal)
CPT/HCPCS: 36415; 85025

== ENCOUNTER 2025-06-02 06:57 | Outpatient (OUT) | payer OTHER, SELFPAY ==
--- OUTSIDE RECORDS SUMMARY | 2025-06-02 07:00 | XMS_ITS | CCD ---
Author Organization [facility] Care Team Providers Care Die Barber Name Role Phone Horacio San Primary Care [...] Unavailable VIRA ., DR CLARKE Admitting Unavailable [place], DR BARBARA [employer] Unavailable VIRA ., [...] Unavailable Syedy Horacio TERESA Primary Care Provider [phone] Allergies Allergy Classification Reported Allergen(s) Allergy Type Date of Onset Reaction(s) Facility (3 sources) Penicillin; 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: [penicillin] Drug Allergy Itching (finding) General Surgery [place] (4 sources) Penicillins Drug Allergy 3 Hives, [...] mg by mouth Daily Active estrogens, conjugated (detention) 0.625 mg/ml vaginal cream (4 sources) Estrogen [...] Onset: 06-16-2022 Chronic Other aftercare (1 source) halfway (current) use of aspirin; 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: [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 Performed at: =[address] [id number] Cancer Registrar: Katie Jimenez MD, Phone: [phone] Performed at: [address] [id number] Cancer Registrar: Katie Jimenez MD, Phone: [phone] IGP, APTIMA HPV, RFX 16/18,45 Note . [facility] Comment on above: TESTS RESULT FLAG UN ITS REF RANGE LAB DIAGNOSIS: 02 NEGATIVE FOR INTRAEPITHELIAL LESION OR MALIGNANCY. Specimen adequacy: 02 Satisfactory for evaluation. Endocervical component may not be distinguished in cases of atrophy. Performed by: 02 Corby Nails Room Clerk (ASCP) . 02 Note: Note 02 The [...] <-Panic Low,>-Panic High,A-Abnormal,AA-Critical Abnormal Performed at: [address] [address] aKtie Jimenez MD, SPATULA-ALONE VAGINA [facility] Ambulatory Visit Summaryon 0 11-26-2022 Ambulatory [...] Lipoma of right thigh Umbilical hernia Normal [facility] General Surgery Office/Clini c Noteon 11-26-2022 [...] SARS-CoV-2 (COVID-19) mRNA-1273 vaccine 11/23/2020 Recorded Normal [facility] Comment on above: Result Comment: Elec tronically Signed By: LISBETH TERESA, Eric Fierro\Date and Time Signed: 11/26/22 16:51 EDT Pathology Noteon 11-24-2022 Pathology Note [id number] .00CD:127 Normal [facility] Operative Reporton Operative Report [id number] .00CD:127 [facility] Consent for Procedure/Surger yon 10-29-2022 Consent for Procedure/Surgery [id number] .00CD:127 Normal [facility] Facesheeton 10-29-2022 Facesheet [id number] .00CD:127 Normal [facility] Ambulatory Visit Summaryon 0 10-28-2022 Ambulatory [...] Lipoma of right thigh Umbilical hernia Normal [facility] Physician Referralon 023 Physician Referral [id number] .00CD:127 Normal [facility] INSULINon 10-14-2022 Insulin 6.7 uIU/mL Normal 2.6-24.9 [facility] Comment on above: Performed By: #### I NSULIN #### [facility] [address] [address] [address] Jay MORGAN BLD IMMUNO SCREENon 09-16 OCCULT BLOOD Negative Normal NEGATIVE [facility] Comment on above: Performed By: #### O BSCRN ####[facility] [address] [id number]. Jay Cortes CBC AUTO DIFFon 10-13-2022 BASO # 0.0 103/ul Normal 0.0-0.1 [facility] Comment on above: Performed By: #### C BC ####[facility] [address] [address]Dr. Jay Sebastian Basophils/100 WBC (Bld) 1.0 % Normal 0.2-2.0 [facility] Comment on above: Performed By: #### C BC ####[facility] [address] [place], [place] [address]Dr. Jay Cortes EO # 0.1 103/ul Normal 0.0-0.7 [facility] Comment on above: Performed By: #### C BC ####[facility] [address] [place], [place] [address]Dr. Jay Sebastian Eosinophils/100 WBC (Bld) 2.3 % Normal 0.9-7.0 [facility] Comment on above: Performed By: #### C BC ####[facility] [address] [place], [place] [address]Dr. Jay Cortes Erythrocyte distribution width (RBC) [Ratio] 12.7 % Normal 11.0-15.0 [facility] Comment on above: Performed By: #### C BC ####[facility] [address] [place], [place] [address]Dr. Jay Cortes Hematocrit (Bld) [Volume fraction] 39.9 % Normal 36.0-48.0 [facility] Comment on above: Performed By: #### C BC ####[facility] [address] [place], [place] [address]Dr. Jay Cortes Hemoglobin (Bld) [Mass/Vol] 13.6 g/dL Normal 12.0-16.0 [facility] Comment on above: Performed By: #### C BC ####[facility] [address] [place], [place] [address]Dr. Conniesabas Cortes IG # 0.01 10e3/ul Normal 0.00-0.03 [facility] Comment on above: Performed By: #### C BC ####[facility] [address] [address]Dr. Conniesabas Cortes IG % 0.3 % Normal 0.0-0.5 [facility] Comment on above: Performed By: #### C BC ####[facility] [address] [address]Dr. Conniesabas Cortes LYMPH # 1.4 103/ul Normal 1.2-3.8 [facility] Comment on above: Performed By: #### C BC ####[facility] [address] [address]Dr. Conniesabas Cortes Lymphocytes/100 WBC (Bld) 34.3 % Normal 20.5-60.0 [facility] Comment on above: Performed By: #### C BC ####[facility] [address] [place], [place] [address]DrBrad Cortes MANUAL DIFF REQ NO Normal [facility] Comment on above: Performed By: #### C BC ####[facility] [address] [address]Dr. Jay Sebastian MCH (RBC) [Entitic mass] 30.6 pg Normal 26.7-34.0 [facility] Comment on above: Performed By: #### C BC ####[facility] [address] [place], [place] [address]Dr. Jay Sebastian MCHC (RBC) [Mass/Vol] 34.1 g/dL Normal 29.9-35.2 [facility] Comment on above: Performed By: #### C BC ####[facility] [address] [place], [place] [address]DrBrad Conniesabas Cortes MCV (RBC) [Entitic vol] 89.7 fL Normal 81.0-99.0 [facility] Comment on above: Performed By: #### C BC ####[facility] [address] [address]DrBrad Cortes MONO # 0.3 103/ul Normal 0.3-0.8 [facility] Comment on above: Performed By: #### C BC ####[facility] [address] [address]Dr. Jay Cortes Monocytes/100 WBC (Bld) 6.3 % Normal 1.7-12.0 [facility] Comment on above: Performed By: #### C BC ####[facility] [address] [address]Dr. Jay Cortes NEUT # 2.2 103/ul Normal 1.4-6.5 [facility] Comment on above: Performed By: #### C BC ####[facility] [address] [address]Dr. Jay Cortes Neutrophils/100 WBC (Bld) 55.8 % Normal 43.0-75.0 [facility] Comment on above: Performed By: #### C BC ####[facility] [address] [address]Dr. Jay Cortes Platelet mean volume (Bld) [Entitic vol] 10.0 fL Normal 9.5-13.5 [facility] Comment on above: Performed By: #### C BC ####[facility] [address] [address]Dr. Jay Cortes PLT 265 103/ul Normal 150-450 [facility] Comment on above: Performed By: #### C BC ####[facility] [address] [address]Dr. Jay Cortes RBC 4.45 106/ul Normal 4.20-5.40 [facility] Comment on above: Performed By: #### C BC ####[facility] [address] [address]Dr. Jay Cortes WBC 4.0 103/ul Normal 4.0-11.0 [facility] Comment on above: Performed By: #### C BC ####[facility] [address] [id number]. Jay Cortes FREE THYROXINE INDEX T7on FTI 2.49 Normal 1.30-4.50 [facility] Comment on above: Performed By: #### C MP, LIPID, TSH, T7 #### [facility] [address] [address] [address] Jay Cortes T3U 35.0 % Normal 30.0-39.0 [facility] Comment on above: Performed By: #### C MP, LIPID, TSH, T7 #### [facility] [address] [address] [address] Jay Cortes T4 [Mass/Vol] 7.10 ug/dL Normal 4.80-13.90 [facility] Comment on above: Performed By: #### C MP, LIPID, TSH, T7 #### [facility] [address] [address] [address] Jay Cortes GLYCOHEMOGLOBIN A1Con 2022 ADA RECOMMENDATION SEE BELOW Normal [facility] Comment on above: Result Comment: ADA RECOMMENDED LIMIT 4.0 - 6.0 ADA THERAPEUTIC TARGET < 7.0 ACTION SUGGESTED > 7.0 Performed By: #### A 1C #### [facility] [address] [address] [address] Jay Cortes Glucose [Mass/Vol] 105 mg/dL Normal [facility] Comment on above: Performed By: #### A 1C #### [facility] [address] [address] [address] Jay Cortes HbA1c (Bld) [Mass fraction] 5.3 % Normal 4.5-6.2 [facility] Comment on above: Performed By: #### A 1C #### [facility] [address] [address] [address] Jay Cortes IRONon 10-13-2022 Iron [Mass/Vol] 90.0 ug/dL Normal 50.0-170.0 [facility] Comment on above: Performed By: #### I ALANA ####[facility] [address] [address]Dr. Jay Cortes LIPID PROFILEon 10-13-2022 CHOL-HDL RATIO NORM SEE BELOW Normal [facility] Comment on above: Result Comment: 3.3 - 4.4 LOW RISK 4.4 - 7.1 AVERAGE RISK 7.1 - 11.0 MODERATE RISK >11.0 HIGH RISK Performed By: #### C MP, LIPID, TSH, T7 #### [facility] [address] [place] [address] Dr. Jay Cortes Cholesterol [Mass/Vol] 175 mg/dL Normal <=200 [facility] Comment on above: Performed By: #### C MP, LIPID, TSH, T7 #### [facility] [address] [place] [address] Dr. Jay Cortes Cholesterol in HDL [Mass/Vol] 72 mg/dL Critically high 40-60 [facility] Comment on above: Performed By: #### C MP, LIPID, TSH, T7 #### [facility] [address] [place] [address] Dr. Jay Cortes Cholesterol in LDL [Mass/Vol] 88.0 mg/dL Normal [facility] Comment on above: Performed By: #### C MP, LIPID, TSH, T7 #### [facility] [address] [place] [address] Dr. Jay Cortes Cholesterol.total/Ch olesterol in HDL [Mass ratio] 2.4 {ratio} Normal [facility] Comment on above: Performed By: #### C MP, LIPID, TSH, T7 #### [facility] [address] [place] [address] Dr. Jay Cortes HDL NORMAL > or = 60 mg/dl - LO W CARDIOVASCULAR RISK <40 mg/dl - HIGH CARDIOVASCULAR RISK Normal [facility] Comment on above: Performed By: #### C MP, LIPID, TSH, T7 #### [facility] [address] [place] [address] Dr. Jay Cortes LDL CALC NORMAL SEE BELOW Normal [facility] Comment on above: Result Comment: <100 mg/dl OPTIMAL 100 - 129 mg/dl NEAR OR ABOVE OPTIMAL 130 - 159 mg/dl BORDERLINE HIGH 160 - 189 mg/dl HIGH >190 mg/dl VERY HIGH Performed By: #### C MP, LIPID, TSH, T7 #### [facility] [address] [place] [address] Dr. Jay Cortes Triglyceride [Mass/Vol] 75 mg/dL Normal <=150 [facility] Comment on above: Performed By: #### C MP, LIPID, TSH, T7 #### [facility] [address] [place] [address] Dr. Jay Cortes VLDL CALC 15.0 mg/dL Normal [facility] Comment on above: Performed By: #### C MP, LIPID, TSH, T7 #### [facility] [address] [place] [address] Dr. Jay Cortes PROF 14(COMP METB)on 023 Albumin [Mass/Vol] 4.1 g/dL Normal 3.4-5.0 [facility] Comment on above: Performed By: #### C MP, LIPID, TSH, T7 #### [facility] [address] [place] [address] Dr. Jay Cortes Albumin/Globulin [Mass ratio] 1.2 {ratio} Normal [facility] Comment on above: Performed By: #### C MP, LIPID, TSH, T7 #### [facility] [address] [place] [address] Dr. Jay Cortes ALP [Catalytic activity/Vol] 51 U/L Normal 46-116 [facility] Comment on above: Performed By: #### C MP, LIPID, TSH, T7 #### [facility] [address] [place] [address] Dr. Jay Cortes ALT [Catalytic activity/Vol] 23 U/L Normal 14-59 [facility] Comment on above: Performed By: #### C MP, LIPID, TSH, T7 #### [facility] [address] [place] [address] Dr. Jay Cortes Anion gap [Moles/Vol] 11.4 mmol/L Normal [facility] Comment on above: Performed By: #### C MP, LIPID, TSH, T7 #### [facility] [address] [place] [address] Dr. Jay Cortes AST [Catalytic activity/Vol] 12 U/L Critically low 15-37 [facility] Comment on above: Performed By: #### C MP, LIPID, TSH, T7 #### [facility] [address] [address] [address] Jay Cortes Bilirubin [Mass/Vol] 0.3 mg/dL Normal 0.2-1.0 [facility] Comment on above: Performed By: #### C MP, LIPID, TSH, T7 #### [facility] [address] [address] [address] Jay Cortes Calcium [Mass/Vol] 8.9 mg/dL Normal 8.5-10.1 [facility] Comment on above: Performed By: #### C MP, LIPID, TSH, T7 #### [facility] [address] [address] [address] Jay Cortes Chloride [Moles/Vol] 104 mmol/L Normal 98-107 [facility] Comment on above: Performed By: #### C MP, LIPID, TSH, T7 #### [facility] [address] [address] [address] Jay Cortes CO2 [Moles/Vol] 29.5 mmol/L Normal 21.0-32.0 [facility] Comment on above: Performed By: #### C MP, LIPID, TSH, T7 #### [facility] [address] [address] [address] Jay Cortes Creatinine [Mass/Vol] 0.60 mg/dL Normal 0.55-1.02 [facility] Comment on above: Performed By: #### C MP, LIPID, TSH, T7 #### [facility] [address] [address] [address] Jay Cortes EGFR-AF EQUATORIAL GUINEAN >60 Normal >=60 [facility] Comment on above: Performed By: #### C MP, LIPID, TSH, T7 #### [facility] [address] [address] [address] Jay Cortes EGFR-NON AF EQUATORIAL GUINEAN >60 Normal >=60 [facility] Comment on above: Performed By: #### C MP, LIPID, TSH, T7 #### [facility] [address] [address] [address] Jay Cortes Globulin (S) [Mass/Vol] 3.3 g/dL Normal [facility] Comment on above: Performed By: #### C MP, LIPID, TSH, T7 #### [facility] [address] [address] [address] Jay Cortes Glucose [Mass/Vol] 103 mg/dL Normal 74-106 [facility] Comment on above: Performed By: #### C MP, LIPID, TSH, T7 #### [facility] [address] [address] [address] Jay Cortes Potassium [Moles/Vol] 3.9 mmol/L Normal 3.5-5.1 [facility] Comment on above: Performed By: #### C MP, LIPID, TSH, T7 #### [facility] [address] [place] [address] Dr. Jay Cortes Protein [Mass/Vol] 7.4 g/dL Normal 6.4-8.2 [facility] Comment on above: Performed By: #### C MP, LIPID, TSH, T7 #### [facility] [address] [address] [address] Jay Cortes Sodium [Moles/Vol] 141 mmol/L Normal 136-145 [facility] Comment on above: Performed By: #### C MP, LIPID, TSH, T7 #### [facility] [address] [address] [address] Jay Cortes Urea nitrogen [Mass/Vol] 15.0 mg/dL Normal 7.0-18.0 [facility] Comment on above: Performed By: #### C MP, LIPID, TSH, T7 #### [facility] [address] [place] [address] Dr. Jay Cortes Urea nitrogen/Creatinine [Mass ratio] 25.0 mg/mg Normal [facility] Comment on above: Performed By: #### C MP, LIPID, TSH, T7 #### [facility] [address] [place] [address] Dr. Jay Cortes TSHon 10-13-2022 TSH 0.941 uIU/mL Normal 0.358-3.740 [facility] Comment on above: Performed By: #### C MP, LIPID, TSH, T7 #### [facility] [address] [address] [address] Jay Cortes VAGINITIS/VAGINOSIS DNA PROB Tarun 06-27-2022 Wendy species Negative Normal Negative [facility] Comment on above: Performed By: #### V AGINT #### [facility] [address] [address] [address] Jya Cortes Gardnerella vaginalis Negative Normal Negative [facility] Comment on above: Performed By: #### V AGINT #### [facility] [address] [address] [address] Jay Cortes Trichomonas vaginalis Negative Normal Negative [facility] Comment on above: Performed By: #### V AGINT #### [facility] [address] [address] [address] Jay Cortes PAP ACOG PANEL 2: 30 to 65on 06-22-2022 . . Normal [facility] Comment on above: Result Comment: Perf ormed at: WB Performed By: #### 4 [id number] ####[facility] [address] [address]Dr. Jay Cortes Age Gdln ACOG Testing 30-65 Normal [facility] Comment on above: Performed By: #### 4 [id number] ####[facility] [address] [address]Dr. Jay Cortes DIAGNOSIS: Comment Normal [facility] Comment on above: Result Comment: NEGA TIVE FOR INTRAEPITHELIAL LESION OR MALIGNANCY. Performed at: WB Performed By: #### 4 [id number] ####[facility] [address] [address]Dr. Jay Cortes HPV Aptima Negative Normal Negative [facility] Comment on above: Result Comment: This nucleic acid amplification test detects fourteen high-risk HPV types (16,18,31,33,35,39,45,51,52,56,58,59,66,68) without differentiation. Performed at: =G Performed By: #### 4 [id number] ####[facility] [address] [address]Dr. Jay Cortes Methodology: Comment Normal [facility] Comment on above: Result Comment: This liquid based ThinPrep(R) pap test was screened with the use of an image guided system. Performed at: WB Performed By: #### 4 [id number] ####[facility] [address] [id number] Cortes Note: Comment Normal [facility] Comment on above: Result Comment: The Pap smear is a screening test designed to aid in the detection of premalignant and malignant conditions of the uterine cervix. It is not a diagnostic procedure and should not be used as the sole means of detecting cervical cancer. Both false-positive and false-negative reports do occur. . Performed at: WB Performed By: #### 4 [id number] ####[facility] [address] [address]DrBrad Cortes Performed by: Comment Normal [facility] Comment on above: Result Comment: Annalise Tubbs, Room Clerk (ASCP) Performed at: WB Performed By: #### 4 [id number] ####[facility] [address] [id number] Cortes Specimen adequacy: Comment Normal [facility] Comment on above: Result Comment: Sati sfactory for evaluation. No endocervical cells are present. This is consistent with a history of hysterectomy. Performed at: WB Performed By: #### 4 [id number] ####[facility] [address] [id number] Cortes MG MAMM SCREEN 3D MIGUEL CADon 06-13-2022 MG MAMM SCREEN 3D MIGUEL CAD Patient: SHILPA OBRIEN Exam Date: 06/13/2022 : 1965 Gender:F Ordering : DR TRICIA CONSTANTINO . Admission #: [id number] Family : Order #: [id number] CLICK HERE TO VIEW EXAM RADIOLOGY REPORT PROCEDURE: MAMMOGRAM SCREENING 3D BILATERAL CAD COMPARISON: MG MAMM SCREEN MGIUEL W CAD, 06/04/2020. MG MAMM SCREEN MIGUEL W CAD, 06/06/2021. INDICATIONS: Screening mammography Calculator Name NCI Breast Cancer Risk Assessment Tool 5 Year Breast Cancer Risk 1.20% Lifetime Breast Cancer Risk 8.50% Personal Breast Cancer No Personal Ovarian Cancer No Treatments None Family Cancers None LOCATION: [facility] BREAST COMPOSITION: Heterogeneously dense,which may [...] on 06/13/2022 at 09:10 Normal [facility] XR DEXA BONE DENSITYon 06-13 XR DEXA BONE DENSITY DEXA Bone Density Study CLINICAL: Evaluate bone mineral density. Postmenopausal COMPARISON: 06/11/2020 FINDINGS: The bone density study was assessed by dual-energy x-ray absorptiometry with the WinDensity scanner. The test results are expressed in [...] ATKINS Date: 2022-06-13 08:30 Normal [facility] Vital Signs Date Time Vital Sign Value Performing Clinician Facility 07-05-2024 14:27-0400 Body height 170.2 cm Tamago Phone: [facility] [email or web address] 07-05-2024 14:27-0400 Body mass index (BMI) [Ratio] 23.15 kg/m2 [place] Phone: [facility] [email or web address] 07-05-2024 14:270400 Body weight 67.04 kg [place] Phone: [facility] 07-05-2024 14:27-0400 Diastolic blood pressure 80 mm[Hg] Tamago Phone: [facility] [email or web address] 07-05-2024 14:27-0400 Systolic blood pressure 118 mm[Hg] Tricia Vira DO Work Phone: [facility] Healthcare 10-28-2022 15:02-0500 Blood Pressure Location Eric KRISHNAL [facility] [place] 10-28-2022 15:02-0500 Diastolic blood pressure 86 mm[Hg] Eric NILL [facility] [place] 10-28-2022 15:02-0500 Heart rate 70 /min Eric NILL [facility] [place] 10-28-2022 15:02-0500 Respiratory rate 16 /min Eric NILL [facility] [place] 10-28-2022 15:02-0500 Systolic blood pressure 122 mm[Hg] Eric KRISHNAL [facility] [place] Encounters Encounter Date Encounter Type Care Provider Facility Start: 07-05-2024 End: 07-05-2024 Bamboo flowsheet Tricia Vira DO Work Phone: [facility] Start: 07-05-2024 End: 07-12-2024 Bamboo flowsheet Tricia Vira DO Work Phone: [facility] Start: 07-05-2024 End: 07-12-2024 Clinisync Result Encounter Tricia Vira DO Work Phone: [facility] External Department Unsolicited Start: 07-05-2024 End: 07-05-2024 Patient encounter procedure Tricia Vira DO Work Phone: [facility] Healthcare Start: 07-05-2024 End: 07-05-2024 Patient encounter status Tricia Vira DO Work Phone: [facility] Start: 07-05-2024 End: 07-05-2024 Periodic preventive med est patient 40-64yrs Tricia Vira DO Work Phone: [facility] Comment on above: Well woman [...] Start: 10-13-2022 End: 10-14-[address] HORACIO ASN . Facility: Start: 06-25-2022 End: 06-25-2022 ambulatory [...] [facility] [address] [place] [id number] Tricia Constantino, DO [address] [place] [address] [facility] Start: 06-22-2025 Screening for malignant neoplasm of breast [facility]amm[facility] Start: 07-05-2024 End: 07-05-2025 DXA Skeletal system Views for bone density DEXA bone density Imaging Routine Well woman exam with routine gynecological exam Preventative health care Surgical menopause Expected: 07/05/2024 (Approximate), Expires: 07/05/2025 [facility] Comment on above: Expected: 07/05/2024 (Approximate), Expires: 07/05/2025 Start: 07-05-2024 End: 09-04-2025 MG Breast - bilateral Screening Bilateral screening mammogram Imaging Routine Well woman exam with routine gynecological exam Preventative health care Encounter for screening mammogram for malignant neoplasm of breast Expected: 07/05/2024, Expires: 09/04/2025 [facility] Work Phone: Comment on above: Expected: 07/05/2024 , Expires: 09/04/2025 Start: 07-05-2024 End: 07-05-2024 Patient encounter procedure 07/05/2024 2:00 PM EDT Office Visit [facility] [address] [place] [id number] Tricia Constantino, DO [address] [place] [address] Arrived [facility] Comment on above: Arrived Start: 05-15-2024 Influenza vaccination Influenza Vacc ine (#1) [facility] Start: 1965 Screening for malignant neoplasm of colon [facility] THIN PREP TIS PAP AN D HR HPV DNA THIN PREP TIS PAP AND HR HPV DNA Pathology and Cytology Routine Well woman exam with routine gynecological exam Ordered: 07/05/2024 [facility] Comment on above: Ordered: 07/05/2024 Immunizations Immunization Date Immunization Notes Care Provider [facility] 07-27-2023 influenza virus vaccine, unspecified formulation Tricia Constantino DO Work Phone: [facility] 08-08-2022 influenza virus vaccine, unspecified formulation Eric [facility] [facility] 08-17-2021 SARS-CoV-2 (COVID-19 ) mRNA-1273 vaccine Eric [facility] [place] Comment on above: Result Comment: 2022: [id number] 12-21-2020 SARS-CoV-2 (COVID-19 ) mRNA-1273 vaccine Eric ALL[facility] [place] 11-23-2020 SARS-CoV-2 (COVID-19 ) mRNA-1273 vaccine Eric ALLEN [facility] [place] Payers Date Payer Category Payer Private Health Insurance [employer] [id number] 1965 Unknown [id number] 1965 Unknown [id number]. 593 1965 Unknown [id number]. 593 1967 Unknown [id number]. 593 1965 Unknown [id number]. 593 1967 Unknown [id number]. 593 1965 Unknown [id number]. 727 1965 Unknown [id number]. 727 1965 Unknown [id number]. 727 1957 Unknown [id number] Social History Date Type Detail Facility Start: 10-28-2022 Tobacco smoking status Never smoked tobacco (finding) [facility] [place] Tobacco smoking status Never [facility] [place] Sex Assigned At Female [facility] Tobacco smoking stat [facility] Tobacco smoking consumption unknown [facility] Start: 1965 Sex assigned at Female [facility] Start: 06-15-2023 Gender identity Identifies as female gender (finding) [facility] Start: 06-15-2023 Sexual orientation Heterosexual (finding) [facility] Functional Status Date Assessment Result [...] woman exam with routine gynecological exam 07/05/2024 [facility] care 07/05/2024 Encounter for screening mammogram [...] nursing note reviewed. Exam conducted with a conventional underwriter present. Vitals: Estimated body mass index is [...] Tricia Constantino DO documented in this encounter [facility] Clinical Note 11-19-2022 Note Date & [...] 2 mL. CC: Horacio San M.D. [facility] Clinical Note 10-28-2022 Note Date & [...] plan excisional biopsy under local anesthesia at [facility], informed consent obtained. Follow-up No qualifying [...] Recorded SARS-CoV-2 (COVID-19) mRNA-1273 vaccine 11/23/2020 Recorded [facility] Comment on above: Result Comment: Elec tronically Signed By: LISBETH TERESA, Eric Fierro\Date and Time Signed: 10/28/22 15:34 EST Evaluation + Plan note Note Date & Type Note Facility Evaluation + Plan note No data available for this section [facility] [place] Evaluation note Note Date & Type Note [...] data available for this section [facility] [place] Progress note Note Date & Type Note Facility Progress note No data available for this section [facility] [place] Summary Purpose Family History No Family History Records FoundNo Family History Records Found Advance Directives No Advanced Directives Records FoundNo Advanced Directives Records Found Additional Source Comments Patient Care team informatio n (unrecognized section and content) Die Barber Relationship Specialty Start Date End Date Horacio San MD [address] [place] [address] PCP - General Family Medicine 06/22/23 Die Barber Relationship Specialty Start Date End Date Horacio San MD [address] [place] [address] PCP - General Family Medicine 06/22/23 Die Barber Relationship Specialty Start Date End Date Horacio San MD [address] [place] [address] PCP - General Family Medicine 06/22/23 INFORMATION SOURCE (unrecogn ized section and content) DATE CREATED AUTHOR 12/05/2022 [facility] DATE CREATED AUTHOR AUTHOR'S ORGANIZ ATION 12/14/2022 [facility] Reason for Visit (unrecogniz ed section [...] BE BASED ON THE PRIMARY CLINICAL RECORDS. [facility] [employer] provides no warranty or guarantee of the accuracy or completeness of information in this document.
--- NOTE | 2025-06-02 07:02 | CA_ITS ---
Patient Name: FANG OBRIEN MR#: [id number] : 1965 Exam Date: 06/02/2025 Ordering Doctor: DR HORACIO PARKS . ECHOCARDIOGRAM REPORT PROCEDURE: CA ECHO DOPPLER COMPLETE INDICATIONS: SVT COMPARISON: None. DESCRIPTION: COMPLETE ECHOCARDIOGRAM Real-time transthoracic echocardiography with 2D, M-mode, spectral and color flow Doppler performed. QUALITY: Technical quality was good. LEFT VENTRICLE: Normal chamber size. Mild concentric left ventricular hypertrophy. Global left ventricular systolic function is normal, no wall motion abnormalities. Visual estimation of left ventricular ejection fraction is 65%. LV EF: DIASTOLIC: Normal diastolic function. ATRIAL SEPTUM: Visually appears intact LEFT ATRIUM: Normal chamber size. RIGHT ATRIUM: Normal chamber size. RIGHT VENTRICLE: Normal chamber size. Normal right ventricular systolic function. TRICUSPID VALVE: Normal mobility and thickness. No stenosis with trivial regurgitation. No evidence of pulmonary hypertension. RVSP 26mmHg. MITRAL VALVE: Normal mobility and thickness. No evidence of mitral valve stenosis. There is no mitral annular calcification. Trivial mitral regurgitation. AORTIC VALVE: Normal trileaflet appearance. Thickened aortic valve. Normal leaflet mobility. No evidence of aortic valve stenosis. No aortic regurgitation. AORTIC ROOT: Normal diameter and appearance. PULMONIC VALVE: Normal thickness and mobility. No stenosis. No regurgitation. PERICARDIUM: No evidence of pericardial effusion. IVC: Collapes with inspirations. Normal size. PLEURA: CONCLUSION: Mild concentric left ventricular hypertrophy Normal left ventricle cavity size Normal left ventricular systolic function without wall motion abnormalities, ejection fraction 65 % Normal left ventricular diastolic function Normal right ventricular size and systolic function Normal right-sided pressures, RVSP 28 mmHg Trivial mitral regurgitation and trivial tricuspid regurgitation No significant valvular abnormalities Adult Echocardiography Procedure Report Left Ventricle LVEDD (3.7 - 5.6 cm): 3.96 cm LVESD (2.2 - 4.0 cm): 2.29 cm LVIVS thickness (0.6 - 1.2 cm): 1.09 cm LVPW thickness (0.5 - 1.0 cm): 1.15 cm e': 0.11 m/s E - e': 5.11 LVOT Max Gradient: 4.86 mm[Hg] LVOT Area (cm2): 1.10 m/s Peak Velocity (LVOT): 1.10 m/s Mean Velocity (LVOT): 0.70 m/s LVOT Diameter 1.79 cm Left Ventricular Ejection Fraction: 69.53 % Left Atrium LA Volume Index (2D A2C): 28.68 ml/m2 Left Atrium Systolic Dimension: 3.03 cm Mitral Valve MV E to A Ratio: 1.23 MV Max Gradient: MV Mean Gradient: Mitral Valve A-Wave Peak Velocity: 0.48 m/s Mitral Valve E-Wave Peak Velocity: 0.59 m/s Cardiovascular Orifice Area: Right Ventricle RV Internal Diastolic Dimension: 3.66 cm Aorta AO Root Diam: 3.23 cm Ascending Ao Diam: 2.83 cm Aortic Valve AoV Area (Peak Sarwat): 2.65 cm2, 2.65 cm2 AoV Area (VTI): 2.63 cm2, 2.63 cm2 Deceleration [place]: Pressure Half-Time: Peak Velocity(Antegrade Flow): 1.05 m/s Peak Gradient(Antegrade Flow): 4.39 mm[Hg] Mean Velocity(Antegrade Flow): 0.70 m/s Mean Gradient(Antegrade Flow): 2.14 mm[Hg] Velocity Time Integral: 22.68 cm Tricuspid Valve Peak Velocity (Regurgitant Flow): 2.41 m/s, 2.30 m/s, 2.10 m/s Peak Velocity: Pulmonic Valve Mean Gradient: Mean Velocity: Peak Velocity: 0.82 m/s Peak Gradient: 2.77 mm[Hg], 2.59 mm[Hg] Right Atrium Right Atrium Systolic Pressure: 42.23 ml, 42.23 ml Dictated by: Luzma Julien MD on 06/02/2025 at 12:40 Approved by: Luzma Jluien MD on 06/02/2025 at 12:52
== END 2025-06-02 06:58 | disposition home or self-care (01) ==
LOC: CARD 06:57
PROVIDERS: PCP Family Medicine; Visit Provider Family Medicine
DX: I47.10 Supraventricular tachycardia, unspecified (principal)
CPT/HCPCS: 93306

== ENCOUNTER 2025-06-28 08:28 | Outpatient (OUT) | payer OTHER, SELFPAY ==
--- NOTE | 2025-06-28 08:31 | MM_ITS ---
Patient Name: FANG OBRIEN MR#: [id number] : 1965 Exam Date: 06/28/2025 Ordering Doctor: DR TRICIA VELASQUEZ . RADIOLOGY REPORT PROCEDURE: MM TOMOSYNTHESIS SCREENING BI COMPARISON: MM TOMOSYNTHESIS SCREENING BI, 06/22/2024. MM TOMOSYNTHESIS SCREENING BI, 06/15/2023. MG MAMM SCREEN 3D MIGUEL CAD, 06/13/2022. MG MAMM MIGUEL SCRN W CAD DIG, 01/27/2013. INDICATIONS: Screening Calculator Name NCI Breast Cancer Risk Assessment Tool 5 Year Breast Cancer Risk 1.30% Lifetime Breast Cancer Risk 8.00% Personal Breast Cancer No Personal Ovarian Cancer No Treatments None Family Cancers None LOCATION: [facility] [place] BREAST COMPOSITION: The breasts are heterogeneously dense, which may obscure small masses. FINDINGS: DIAGNOSTIC CATEGORY 1--NEGATIVE. IGHT BREAST: No significant suspicious finding. LEFT BREAST: No significant suspicious finding. RECOMMENDATIONS: ROUTINE MAMMOGRAM AND CLINICAL EVALUATION IN 12 MONTHS. Dictated by: Jatin Talavera MD on 06/28/2025 at 14:37 Approved by: Jatin Talavera MD on 06/28/2025 at 14:41
--- OUTSIDE RECORDS SUMMARY | 2025-06-28 08:32 | XMS_ITS | CCD ---
Author Organization [facility] Care Team Providers Care Vallez Filter Operator Name Role Phone Horacio San Primary Care [...] Unavailable VIRA ., DR CLARKE Admitting Unavailable [place], DR BARBARA Lloyd Consulting Unavailable VIRA ., [...] Unavailable Syedy Horacio TERESA Primary Care Provider [phone] Allergies Allergy Classification Reported Allergen(s) Allergy Type Date of Onset Reaction(s) Facility (3 sources) Penicillin; 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: [penicillin] Drug Allergy Itching (finding) General Surgery [place] (4 sources) Penicillins Drug Allergy 3 Hives, [...] mg by mouth Daily Active estrogens, conjugated (halfway) 0.625 mg/ml vaginal cream (4 sources) Estrogen [...] Onset: 06-16-2022 Chronic Other 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 of containers..01 ThinPrep Vial Age Chao VILLAOLBOS Shilpa... FLAG LEGEND: L-Low Normal,H-High Normal,LL-Alert Low,HH-Alert High <-Panic Low,>-Panic High,A-Abnormal,AA-Critical Abnormal Performed at: 01 =[address] [address] Katie Jimenez MD, HPV APTIMA Negative Negative [facility] Comment on above: This nucleic acid am plification test detects fourteen high- risk HPV types (16,18,31,33,35,39,45,51,52,56,58,59,66,68) without differentiation. Performed at: =[address] [id number] Cotton Dispatcher: Katie Jimenez MD, Phone: [phone] Performed at: [address] [id number] [place] Dispatcher: Katie Jimenez MD, Phone: [phone] IGP, APTIMA HPV, RFX 16/18,45 Note . [facility] Comment on above: TESTS RESULT FLAG UN ITS REF RANGE LAB DIAGNOSIS: 02 NEGATIVE FOR INTRAEPITHELIAL LESION OR MALIGNANCY. Specimen adequacy: 02 Satisfactory for evaluation. Endocervical component may not be distinguished in cases of atrophy. Performed by: 02 Corby Nails Leather Repairer (ASCP) . 02 Note: Note 02 The [...] <-Panic Low,>-Panic High,A-Abnormal,AA-Critical Abnormal Performed at: [address] [address] Katie Jimenez MD, SPATULA-ALONE VAGINA [facility] Ambulatory Visit Summaryon 0 11-26-2022 Ambulatory Visit [...] Lipoma of right thigh Umbilical hernia Normal [facility] General Surgery Office/Clini c Noteon [...] SARS-CoV-2 (COVID-19) mRNA-1273 vaccine 11/23/2020 Recorded Normal [facility] Comment on above: Result Comment: Elec tronically Signed By: LISBETH TERESA, Eric Fierro\Date and Time Signed: 11/26/22 16:51 EDT Pathology Noteon 11-24-2022 Pathology Note [id number] .00CD:127 Normal [facility] Operative Reporton Operative Report [id number] .00CD:127 [facility] Consent for Procedure/Surger yon 10-29-2022 Consent for Procedure/Surgery [id number] .00CD:127 Normal [facility] Facesheeton 10-29-2022 Facesheet [id number] .00CD:127 Normal [facility] Ambulatory Visit Summaryon 0 10-28-2022 Ambulatory Visit [...] Lipoma of right thigh Umbilical hernia Normal [facility] Physician Referralon 023 Physician Referral [id number] .00CD:127 Normal [facility] INSULINon 10-14-2022 Insulin 6.7 uIU/mL Normal 2.6-24.9 [facility] Comment on above: Performed By: #### I NSULIN #### [facility] [address] [address] [address] Jay MORGAN BLD IMMUNO SCREENon 09-16 OCCULT BLOOD Negative Normal NEGATIVE [facility] Comment on above: Performed By: #### O BSCRN ####[facility] [address] [id number]. Jay Cortes CBC AUTO DIFFon 10-13-2022 BASO # 0.0 103/ul Normal 0.0-0.1 [facility] Comment on above: Performed By: #### C BC ####[facility] [address] [address]Dr. Jay Sebastian Basophils/100 WBC (Bld) 1.0 % Normal 0.2-2.0 [facility] Comment on above: Performed By: #### C BC ####[facility] [address] [place], [place] [address]Dr. Jay Cortes EO # 0.1 103/ul Normal 0.0-0.7 [facility] Comment on above: Performed By: #### C BC ####[facility] [address] [place], [place] [address]Dr. Jay Sebastian Eosinophils/100 WBC (Bld) 2.3 % Normal 0.9-7.0 [facility] Comment on above: Performed By: #### C BC ####[facility] [address] [place], [place] [address]Dr. Jay Cortes Erythrocyte distribution width (RBC) [Ratio] 12.7 % Normal 11.0-15.0 [facility] Comment on above: Performed By: #### C BC ####[facility] [address] [place], [place] [address]Dr. Jay Cortes Hematocrit (Bld) [Volume fraction] 39.9 % Normal 36.0-48.0 [facility] Comment on above: Performed By: #### C BC ####[facility] [address] [place], [place] [address]Dr. Jay Cortes Hemoglobin (Bld) [Mass/Vol] 13.6 g/dL Normal 12.0-16.0 [facility] Comment on above: Performed By: #### C BC ####[facility] [address] [place], [place] [address]Dr. Conniesabas Cortes IG # 0.01 10e3/ul Normal 0.00-0.03 [facility] Comment on above: Performed By: #### C BC ####[facility] [address] [address]Dr. Conniesabas Cortes IG % 0.3 % Normal 0.0-0.5 [facility] Comment on above: Performed By: #### C BC ####[facility] [address] [address]Dr. Conniesabas Cortes LYMPH # 1.4 103/ul Normal 1.2-3.8 [facility] Comment on above: Performed By: #### C BC ####[facility] [address] [address]Dr. Conniesabas Cortes Lymphocytes/100 WBC (Bld) 34.3 % Normal 20.5-60.0 [facility] Comment on above: Performed By: #### C BC ####[facility] [address] [place], [place] [address]DrBrad Cortes MANUAL DIFF REQ NO Normal [facility] Comment on above: Performed By: #### C BC ####[facility] [address] [id number]. Jay Sebastian MCH (RBC) [Entitic mass] 30.6 pg Normal 26.7-34.0 [facility] Comment on above: Performed By: #### C BC ####[facility] [address] [place], [place] [id number]. Jay Sebastian MCHC (RBC) [Mass/Vol] 34.1 g/dL Normal 29.9-35.2 [facility] Comment on above: Performed By: #### C BC ####[facility] [address] [place], [place] [id number] Conniesabas Cortes MCV (RBC) [Entitic vol] 89.7 fL Normal 81.0-99.0 [facility] Comment on above: Performed By: #### C BC ####[facility] [address] [id number] Cortes MONO # 0.3 103/ul Normal 0.3-0.8 [facility] Comment on above: Performed By: #### C BC ####[facility] [address] [id number]. Jay Cortes Monocytes/100 WBC (Bld) 6.3 % Normal 1.7-12.0 [facility] Comment on above: Performed By: #### C BC ####[facility] [address] [phone]. Jay Cortes NEUT # 2.2 103/ul Normal 1.4-6.5 [facility] Comment on above: Performed By: #### C BC ####[facility] [address] [address]Dr. Jay Cortes Neutrophils/100 WBC (Bld) 55.8 % Normal 43.0-75.0 [facility] Comment on above: Performed By: #### C BC ####[facility] [address] [address]Dr. Jay Cortes Platelet mean volume (Bld) [Entitic vol] 10.0 fL Normal 9.5-13.5 [facility] Comment on above: Performed By: #### C BC ####[facility] [address] [address]Dr. Jay Cortes PLT 265 103/ul Normal 150-450 [facility] Comment on above: Performed By: #### C BC ####[facility] [address] [id number]. Jay Cortes RBC 4.45 106/ul Normal 4.20-5.40 [facility] Comment on above: Performed By: #### C BC ####[facility] [address] [phone]. Jay Cortes WBC 4.0 103/ul Normal 4.0-11.0 [facility] Comment on above: Performed By: #### C BC ####[facility] [address] [phone]. Jay Cortes FREE THYROXINE INDEX T7on FTI 2.49 Normal 1.30-4.50 [facility] Comment on above: Performed By: #### C MP, LIPID, TSH, T7 #### [facility] [address] [address] [address] Jay Cortes T3U 35.0 % Normal 30.0-39.0 [facility] Comment on above: Performed By: #### C MP, LIPID, TSH, T7 #### [facility] [address] [address] [address] Jay Cortes T4 [Mass/Vol] 7.10 ug/dL Normal 4.80-13.90 [facility] Comment on above: Performed By: #### C MP, LIPID, TSH, T7 #### [facility] [address] [address] [address] Jay Cortes GLYCOHEMOGLOBIN A1Con 2022 ADA RECOMMENDATION SEE BELOW Normal [facility] Comment on above: Result Comment: ADA RECOMMENDED LIMIT 4.0 - 6.0 ADA THERAPEUTIC TARGET < 7.0 ACTION SUGGESTED > 7.0 Performed By: #### A 1C #### [facility] [address] [address] [address] Jay Cortes Glucose [Mass/Vol] 105 mg/dL Normal [facility] Comment on above: Performed By: #### A 1C #### [facility] [address] [address] [address] Jay Cortes HbA1c (Bld) [Mass fraction] 5.3 % Normal 4.5-6.2 [facility] Comment on above: Performed By: #### A 1C #### [facility] [address] [address] [address] Jay Cortes IRONon 10-13-2022 Iron [Mass/Vol] 90.0 ug/dL Normal 50.0-170.0 [facility] Comment on above: Performed By: #### I ALANA ####[facility] [address] [address]Dr. Jay Cortes LIPID PROFILEon 10-13-2022 CHOL-HDL RATIO NORM SEE BELOW Normal [facility] Comment on above: Result Comment: 3.3 - 4.4 LOW RISK 4.4 - 7.1 AVERAGE RISK 7.1 - 11.0 MODERATE RISK >11.0 HIGH RISK Performed By: #### C MP, LIPID, TSH, T7 #### [facility] [address] [place] [address] Dr. Jay Cortes Cholesterol [Mass/Vol] 175 mg/dL Normal <=200 [facility] Comment on above: Performed By: #### C MP, LIPID, TSH, T7 #### [facility] [address] [place] [address] Dr. Jay Cortes Cholesterol in HDL [Mass/Vol] 72 mg/dL Critically high 40-60 [facility] Comment on above: Performed By: #### C MP, LIPID, TSH, T7 #### [facility] [address] [place] [address] Dr. Jay Cortes Cholesterol in LDL [Mass/Vol] 88.0 mg/dL Normal [facility] Comment on above: Performed By: #### C MP, LIPID, TSH, T7 #### [facility] [address] [place] [address] Dr. Jay Cortes Cholesterol.total/Ch olesterol in HDL [Mass ratio] 2.4 {ratio} Normal [facility] Comment on above: Performed By: #### C MP, LIPID, TSH, T7 #### [facility] [address] [place] [address] Dr. Jay Cortes HDL NORMAL > or = 60 mg/dl - LO W CARDIOVASCULAR RISK <40 mg/dl - HIGH CARDIOVASCULAR RISK Normal [facility] Comment on above: Performed By: #### C MP, LIPID, TSH, T7 #### [facility] [address] [place] [address] Dr. Jay Cortes LDL CALC NORMAL SEE BELOW Normal [facility] Comment on above: Result Comment: <100 mg/dl OPTIMAL 100 - 129 mg/dl NEAR OR ABOVE OPTIMAL 130 - 159 mg/dl BORDERLINE HIGH 160 - 189 mg/dl HIGH >190 mg/dl VERY HIGH Performed By: #### C MP, LIPID, TSH, T7 #### [facility] [address] [place] [address] Dr. Jay Cortes Triglyceride [Mass/Vol] 75 mg/dL Normal <=150 [facility] Comment on above: Performed By: #### C MP, LIPID, TSH, T7 #### [facility] [address] [place] [address] Dr. Jay Cortes VLDL CALC 15.0 mg/dL Normal [facility] Comment on above: Performed By: #### C MP, LIPID, TSH, T7 #### [facility] [address] [place] [address] Dr. Jay Cortes PROF 14(COMP METB)on 023 Albumin [Mass/Vol] 4.1 g/dL Normal 3.4-5.0 [facility] Comment on above: Performed By: #### C MP, LIPID, TSH, T7 #### [facility] [address] [place] [address] Dr. Jay Cortes Albumin/Globulin [Mass ratio] 1.2 {ratio} Normal [facility] Comment on above: Performed By: #### C MP, LIPID, TSH, T7 #### [facility] [address] [place] [address] Dr. Jay Cortes ALP [Catalytic activity/Vol] 51 U/L Normal 46-116 [facility] Comment on above: Performed By: #### C MP, LIPID, TSH, T7 #### [facility] [address] [place] [address] Dr. Jay Cortes ALT [Catalytic activity/Vol] 23 U/L Normal 14-59 [facility] Comment on above: Performed By: #### C MP, LIPID, TSH, T7 #### [facility] [address] [place] [address] Dr. Jay Cortes Anion gap [Moles/Vol] 11.4 mmol/L Normal [facility] Comment on above: Performed By: #### C MP, LIPID, TSH, T7 #### [facility] [address] [place] [address] Dr. Jay Cortes AST [Catalytic activity/Vol] 12 U/L Critically low 15-37 [facility] Comment on above: Performed By: #### C MP, LIPID, TSH, T7 #### [facility] [address] [address] [address] Jay Cortes Bilirubin [Mass/Vol] 0.3 mg/dL Normal 0.2-1.0 [facility] Comment on above: Performed By: #### C MP, LIPID, TSH, T7 #### [facility] [address] [address] [address] Jay Cortes Calcium [Mass/Vol] 8.9 mg/dL Normal 8.5-10.1 [facility] Comment on above: Performed By: #### C MP, LIPID, TSH, T7 #### [facility] [address] [address] [address] Jay Cortes Chloride [Moles/Vol] 104 mmol/L Normal 98-107 [facility] Comment on above: Performed By: #### C MP, LIPID, TSH, T7 #### [facility] [address] [address] [address] Jay Cortes CO2 [Moles/Vol] 29.5 mmol/L Normal 21.0-32.0 [facility] Comment on above: Performed By: #### C MP, LIPID, TSH, T7 #### [facility] [address] [address] [address] Jay Cortes Creatinine [Mass/Vol] 0.60 mg/dL Normal 0.55-1.02 [facility] Comment on above: Performed By: #### C MP, LIPID, TSH, T7 #### [facility] [address] [address] [address] Jay Cortes EGFR-AF CHINESE >60 Normal >=60 [facility] Comment on above: Performed By: #### C MP, LIPID, TSH, T7 #### [facility] [address] [address] [address] Jay Cortes EGFR-NON AF CHINESE >60 Normal >=60 [facility] Comment on above: Performed By: #### C MP, LIPID, TSH, T7 #### [facility] [address] [address] [address] Jay Cortes Globulin (S) [Mass/Vol] 3.3 g/dL Normal [facility] Comment on above: Performed By: #### C MP, LIPID, TSH, T7 #### [facility] [address] [address] [address] Jay Cortes Glucose [Mass/Vol] 103 mg/dL Normal 74-106 [facility] Comment on above: Performed By: #### C MP, LIPID, TSH, T7 #### [facility] [address] [address] [address] Jay Cortes Potassium [Moles/Vol] 3.9 mmol/L Normal 3.5-5.1 [facility] Comment on above: Performed By: #### C MP, LIPID, TSH, T7 #### [facility] [address] [place] [address] Dr. Jay Cortes Protein [Mass/Vol] 7.4 g/dL Normal 6.4-8.2 [facility] Comment on above: Performed By: #### C MP, LIPID, TSH, T7 #### [facility] [address] [address] [address] Jay Cortes Sodium [Moles/Vol] 141 mmol/L Normal 136-145 [facility] Comment on above: Performed By: #### C MP, LIPID, TSH, T7 #### [facility] [address] [address] [address] Jay Cortes Urea nitrogen [Mass/Vol] 15.0 mg/dL Normal 7.0-18.0 [facility] Comment on above: Performed By: #### C MP, LIPID, TSH, T7 #### [facility] [address] [place] [address] Dr. Jay Cortes Urea nitrogen/Creatinine [Mass ratio] 25.0 mg/mg Normal [facility] Comment on above: Performed By: #### C MP, LIPID, TSH, T7 #### [facility] [address] [place] [address] Dr. Jay Cortes TSHon 10-13-2022 TSH 0.941 uIU/mL Normal 0.358-3.740 [facility] Comment on above: Performed By: #### C MP, LIPID, TSH, T7 #### [facility] [address] [address] [address] Jay Cortes VAGINITIS/VAGINOSIS DNA PROB Tarun 06-27-2022 Wendy species Negative Normal Negative [facility] Comment on above: Performed By: #### V AGINT #### [facility] [address] [address] [address] Jay Cortes Gardnerella vaginalis Negative Normal Negative [facility] Comment on above: Performed By: #### V AGINT #### [facility] [address] [address] [address] Jay Cortes Trichomonas vaginalis Negative Normal Negative [facility] Comment on above: Performed By: #### V AGINT #### [facility] [address] [address] [address] Jay Cortes PAP ACOG PANEL 2: 30 to 65on 06-22-2022 . . Normal [facility] Comment on above: Result Comment: Perf ormed at: WB Performed By: #### 4 [id number] ####[facility] [address] [address]Dr. Jay Cortes Age Gdln ACOG Testing 30-65 Normal [facility] Comment on above: Performed By: #### 4 [id number] ####[facility] [address] [address]Dr. Jay Cortes DIAGNOSIS: Comment Normal [facility] Comment on above: Result Comment: NEGA TIVE FOR INTRAEPITHELIAL LESION OR MALIGNANCY. Performed at: WB Performed By: #### 4 [id number] ####[facility] [address] [address]Dr. Jay Cortes HPV Aptima Negative Normal Negative [facility] Comment on above: Result Comment: This nucleic acid amplification test detects fourteen high-risk HPV types (16,18,31,33,35,39,45,51,52,56,58,59,66,68) without differentiation. Performed at: =G Performed By: #### 4 [id number] ####[facility] [address] [address]Dr. Jay Cortes Methodology: Comment Normal [facility] Comment on above: Result Comment: This liquid based ThinPrep(R) pap test was screened with the use of an image guided system. Performed at: WB Performed By: #### 4 [id number] ####[facility] [address] [id number] Cortes Note: Comment Normal [facility] Comment on above: Result Comment: The Pap smear is a screening test designed to aid in the detection of premalignant and malignant conditions of the uterine cervix. It is not a diagnostic procedure and should not be used as the sole means of detecting cervical cancer. Both false-positive and false-negative reports do occur. . Performed at: WB Performed By: #### 4 [id number] ####[facility] [address] [address]DrBrad Cortes Performed by: Comment Normal [facility] Comment on above: Result Comment: Annalise Tubbs, Leather Repairer (ASCP) Performed at: WB Performed By: #### 4 [id number] ####[facility] [address] [id number] Cortes Specimen adequacy: Comment Normal [facility] Comment on above: Result Comment: Sati sfactory for evaluation. No endocervical cells are present. This is consistent with a history of hysterectomy. Performed at: WB Performed By: #### 4 [id number] ####[facility] [address] [id number] Cortes MG MAMM SCREEN 3D MIGUEL CADon 06-13-2022 MG MAMM SCREEN 3D MIGUEL CAD Patient: SHILPA OBRIEN Exam Date: 06/13/2022 : 1965 Gender:F Ordering : DR TRICIA CONSTANTINO . Admission #: [id number] Family : Order #: [id number] CLICK HERE TO VIEW EXAM RADIOLOGY REPORT [...] Treatments None Family Cancers None LOCATION: [facility] BREAST COMPOSITION: Heterogeneously dense,which may obscure [...] Martinez MD on 06/13/2022 at 09:10 Normal [facility] XR DEXA BONE DENSITYon 06-13 XR DEXA BONE DENSITY DEXA Bone Density Study CLINICAL: Evaluate bone mineral density. Postmenopausal COMPARISON: 06/11/2020 FINDINGS: The bone density study was assessed by dual-energy x-ray absorptiometry with the [employer] scanner. The test results are expressed in [...] by: BARBARA ATKINS Date: 2022-06-13 08:30 Normal [facility] Vital Signs Date Time Vital Sign Value Performing Clinician Facility 07-05-2024 14:27-0400 Body height 170.2 cm [employer] Phone: [facility] [email or web address] 07-05-2024 14:27-0400 Body mass index (BMI) [Ratio] 23.15 kg/m2 [employer] Phone: [facility] [email or web address] 07-05-2024 14:270400 Body weight 67.04 kg [employer] Phone: [facility] 07-05-2024 14:27-0400 Diastolic blood pressure 80 mm[Hg] [employer] Phone: [facility] [email or web address] 07-05-2024 14:27-0400 Systolic blood pressure 118 mm[Hg] Tricia Vira DO Work Phone: [facility] 10-28-2022 15:02-0500 Blood Pressure Location Eric KRISHNAL [facility] [place] 10-28-2022 15:02-0500 Diastolic blood pressure 86 mm[Hg] Eric NILL [facility] [place] 10-28-2022 15:02-0500 Heart rate 70 /min Eric NILL [facility] [place] 10-28-2022 15:02-0500 Respiratory rate 16 /min Eric NILL [facility] [place] 10-28-2022 15:02-0500 Systolic blood pressure 122 mm[Hg] Eric KRISHNAL [facility] [place] Encounters Encounter Date Encounter Type Care Provider Facility Start: 07-05-2024 End: 07-05-2024 Bamboo flowsheet Tricia Vira DO Work Phone: [facility] Start: 07-05-2024 End: 07-12-2024 Bamboo flowsheet Tricia Vira DO Work Phone: [facility] Start: 07-05-2024 End: 07-12-2024 Clinisync Result Encounter Tricia Vira DO Work Phone: [facility] External Department Unsolicited Start: 07-05-2024 End: 07-05-2024 Patient encounter procedure Tricia Vira DO Work Phone: [facility] Healthcare Start: 07-05-2024 End: 07-05-2024 Patient encounter status Tricia Vira DO Work Phone: [facility] Healthcare Start: 07-05-2024 End: 07-05-2024 Periodic preventive med est patient 40-64yrs Tricia Vira DO Work Phone: [facility] OB Comment on above: Well woman [...] [facility] [address] [place] [id number] Tricia Constantino, DO [address] [place] [address] [facility] Start: 06-22-2025 Screening for malignant neoplasm of breast Mammogram [facility] Start: 07-05-2024 End: 07-05-2025 DXA Skeletal system Views for bone density DEXA bone density Imaging Routine Well woman exam with routine gynecological exam Preventative health care Surgical menopause Expected: 07/05/2024 (Approximate), Expires: 07/05/2025 [facility] Comment on above: Expected: 07/05/2024 (Approximate), Expires: 07/05/2025 Start: 07-05-2024 End: 09-04-2025 MG Breast - bilateral Screening Bilateral screening mammogram Imaging Routine Well woman exam with routine gynecological exam Preventative health care Encounter for screening mammogram for malignant neoplasm of breast Expected: 07/05/2024, Expires: 09/04/2025 [facility] Work Phone: Comment on above: Expected: 07/05/2024 , Expires: 09/04/2025 Start: 07-05-2024 End: 07-05-2024 Patient encounter procedure 07/05/2024 2:00 PM EDT Office Visit [facility] [address] [place] [id number] Tricia Constantino, DO [address] [place] [address] Arrived [facility] Comment on above: Arrived Start: 05-15-2024 Influenza vaccination Influenza Vacc ine (#1) [facility] Start: 1965 Screening for malignant neoplasm of colon [facility] THIN PREP TIS PAP AN D HR HPV DNA THIN PREP TIS PAP AND HR HPV DNA Pathology and Cytology Routine Well woman exam with routine gynecological exam Ordered: 07/05/2024 [facility] Comment on above: Ordered: 07/05/2024 Immunizations Immunization Date Immunization Notes Care Provider Fa [facility] 07-27-2023 influenza virus vaccine, unspecified formulation Tricia Constantino DO Work Phone: [facility] 08-08-2022 influenza virus vaccine, unspecified formulation [facility] [place] 08-17-2021 SARS-CoV-2 (COVID-19 ) mRNA-1273 vaccine Eric [facility] [place] Comment on above: Result Comment: 2022: [id number] 12-21-2020 SARS-CoV-2 (COVID-19 ) mRNA-1273 vaccine Eric ALLEN [facility] [place] 11-23-2020 SARS-CoV-2 (COVID-19 ) mRNA-1273 vaccine Eric ALLEN [facility] [place] Payers Date Payer Category Payer Private Health Insurance [employer] [id number] 1965 Unknown [id number] 1967 Unknown [id number]. 593 1967 Unknown [id number]. 593 1967 Unknown [id number] [id number]. 593 1967 Unknown [id number] [id number]. 593 1967 Unknown [id number] [id number]. 593 1967 Unknown [id number] [id number]. 727 1967 Unknown [id number] [id number]. 727 1967 Unknown [id number]. 727 1959 Unknown [id number] Social History Date Type Detail Facility Start: 10-28-2022 Tobacco smoking status Never smoked tobacco (finding) [facility] [place] Tobacco smoking status Never [facility] [place] Sex Assigned At Female [facility] Tobacco smoking stat [facility] Tobacco smoking consumption unknown [facility] Start: 1965 Sex assigned at Female [facility] Start: 06-15-2023 Gender identity Identifies as female gender (finding) [facility] Healthcare Start: 06-15-2023 Sexual orientation Heterosexual (finding) [facility] Healthcare Functional Status Date Assessment Result Facility [...] woman exam with routine gynecological exam 07/05/2024 [facility] care 07/05/2024 Encounter for screening mammogram [...] nursing note reviewed. Exam conducted with a applied technologist present. Vitals: Estimated body mass index is [...] Tricia Constantino DO documented in this encounter [facility] Clinical Note 11-19-2022 Note Date & [...] 2 mL. CC: Horacio San M.D. [facility] Clinical Note 10-28-2022 Note Date & [...] plan excisional biopsy under local anesthesia at [facility], informed consent obtained. Follow-up No qualifying [...] Recorded SARS-CoV-2 (COVID-19) mRNA-1273 vaccine 11/23/2020 Recorded [facility] Comment on above: Result Comment: Elec tronically Signed By: LISBETH TERESA, Eric Fierro\Date and Time Signed: 10/28/22 15:34 EST Evaluation + Plan note Note Date & Type Note Facility Evaluation + Plan note No data available for this section [facility] [place] Evaluation note Note Date & Type Note [...] data available for this section [facility] [place] Progress note Note Date & Type Note Facility Progress note No data available for this section [facility] [place] Summary Purpose Family History No Family History Records FoundNo Family History Records Found Advance Directives No Advanced Directives Records FoundNo Advanced Directives Records Found Additional Source Comments Patient Care team informatio n (unrecognized section and content) [employer] Relationship Specialty Start Date End Date Horacio San MD [address] [place] [address] PCP - General Family Medicine 06/22/23 [employer] Operator Relationship Specialty Start Date End Date Horacio San MD [address] [place] [address] PCP - General Family Medicine 06/22/23 [employer] Operator Relationship Specialty Start Date End Date Horacio San MD [address] [place] [address] PCP - General Family Medicine 06/22/23 INFORMATION SOURCE (unrecogn ized section and content) DATE CREATED AUTHOR 12/05/2022 [facility] DATE CREATED AUTHOR AUTHOR'S ORGANIZ ATION 12/14/2022 [facility] Reason for Visit (unrecogniz ed section and [...] BE BASED ON THE PRIMARY CLINICAL RECORDS. [facility] [employer] provides no warranty or guarantee of the accuracy or completeness of information in this document.
== END 2025-06-28 08:29 | disposition home or self-care (01) ==
LOC: MAMMO 08:28
PROVIDERS: PCP Family Medicine; Visit Provider Obstetrics & Gynecology
DX: Z12.31 Encounter for screening mammogram for malignant neoplasm of breast (principal)
CPT/HCPCS: 77063; 77067

== ENCOUNTER 2025-07-31 14:36 | Outpatient (REF) | payer OTHER, SELFPAY ==
--- OUTSIDE RECORDS SUMMARY | 2025-07-31 14:42 | XMS_ITS | CCD ---
Author Organization [facility] Care Team Providers Care Auriculotherapist Name Role Phone Horacio San Primary Care [...] Unavailable VIRA ., DR CLARKE Admitting Unavailable JEFFERSONTON, DR BARBARA Lloyd Consulting Unavailable VIRA ., DR CLARKE Attending Unavailable HOY ., DR LEONARD Primary Care Unavailable VIRA ., DR CLARKE Consulting Unavailable Barbara Atkins Consulting Unavailable VIRA ., DR CLARKE Consulting Unavailable VIRA ., DR CLARKE Admitting Unavailable VIRA ., DR CLARKE Attending Unavailable HOY ., DR LEONARD Primary Care Unavailable NILL, Eric Candelaria Attending Unavailable NILL, Eric Candelaria Attending Unavailable NILL, Eric Candelaria Attending Unavailable Syedy Horacio TERESA Primary Care Provider [phone] Horacio San MD Primary Care Provider [phone] Allergies Allergy ClassificationReported Allergen(s)Allergy TypeDate of OnsetReaction(s) Facility (3 sources)Penicillin; 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: [penicillin]Drug AllergyItching (finding) General Surgery [place] (6 sources)PenicillinsDrug Fxwgmrt25-65-5340Huvei, ItchingNOMS Healthcare Medications Current Medications MedicationDrug Class(es)DatesSig (Normalized)Sig (Original)aspirin 81 mg delayed release oral tablet (7 sources)Platelet Aggregation Inhibitor, Nonsteroidal Anti-inflammatory Drug Start: 00-30-6141qkmfzbq 81 MG EC tablet Take 81 mg by mouth. 10/28/2022 Active Calcium Carb-Cholecalciferol (CALCIUM 1000 + D PO) (4 sources)take 1 tablet by mouth once dailyCalcium Carb-Cholecalciferol (CALCIUM 1000 + D PO) Take 1 tablet by mouth Daily ActiveCholecalciferol (4 sources)Vitamin Dtake 1 tablet by mouth once dailycholecalciferol (Vitamin D- 3) 20 MCG (800 UNIT) tablet Take 800 Units by mouth Daily Activediclofenac sodium 75 mg delayed release oral tablet (7 sources)Nonsteroidal Anti-inflammatory DrugStart: 95-59-6288cmnt 1 tablet by mouth twice dailydiclofenac sodium 75 mg Oral EC Tab 75 mg = 1 tab(s), Oral, BID, Refills(s) 0 Start Date: 10/22/22 Status: Orderedtake 1 tablet by mouth once dailydiclofenac (Voltaren) 75 MG EC tablet Take 75 mg by mouth Daily Active estrogens, conjugated (skilled nursing) 0.625 mg/ml vaginal cream (4 sources)EstrogenStart: 07-31-2023 End: 12-21-8197Tfynfqsea Conjugated (Premarin) 0.625 MG/GM cream Indications: Vaginal dryness, menopausal Insert 0.625 mg into the vagina at bedtime. 1 g 11 07/31/2023 07/30/2024 ActiveMulti Vitamins oral tablet (1 source)Start: 72-25-5482enql 1 tablet by mouth once dailyMulti Vitamins oral tablet 1 tab(s), Oral, Daily, Refill(s) 0 Start Date: 10/28/22 Status: Ordered Pediatric Multiple Vit-C-FA (pediatric multivitamin) tablet chewable split tablet (6 sources)Start: 11-27-3594Gjlneczmg Multiple Vit-C-FA (pediatric multivitamin) tablet chewable split tablet Take by mouth. 10/28/2022 ActiveProbiotic Product (PROBIOTIC 10 ULTRA STRENGTH PO) (4 sources)take 1 tablet by mouth once dailyProbiotic Product (PROBIOTIC 10 ULTRA STRENGTH PO) Take 1 tablet by mouth Daily Active Completed/Discontinued Medications MedicationDrug Class(es)DatesSig (Normalized)Sig (Original)clobetasol propionate 0.5 mg/ml topical cream (3 sources)CorticosteroidStart: 06-25-2022 End: 51-45-5670msqorwhgiv (Temovate) 0.05 % cream Apply topically if needed 06/25/2022 07/05/2024 DiscontinuedStart: 35-56-0288jswqdzrmcx (Temovate) 0.05 % cream APPLY A SMALL AMOUNT TO AFFECTED AREA DAILY FOR 2 WEEKS THEN TWICE A WEEK THEREAFTER 06/25/2022 ActivetiZANidine 4 mg oral tablet (3 sources)Central alpha-2 Adrenergic AgonistStart: 01-02-2023 End: 67-74-6889kxzm 2 tablets by mouth once daily at bedtimetiZANidine (Zanaflex) 4 MG tablet TAKE 2 TABLETS BY MOUTH EVERY DAY AT BEDTIME 01/02/2023 07/05/2024 Discontinued Problems Active Problems Problem ClassificationProblemDateDocumented DateEpisodic/ChronicAbdominal hernia (1 source)Umbilical agyath95-00-7582EetzyksoGyfciem disorders (2 sources)Anxiety; 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: [Anxiety disorder, unspecified]Onset: 440356-56-8081EkxdccqYjhrtwgvuslna of surgical procedures or medical care (2 sources)Postsurgical menopause; 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]16-12-5356JpalwhrXceupvkgnh and other anemia (1 source)Anemia, unspecified; 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: [ANEMIA UNSPECIFIED]Onset: 25-97-8141VaxxcdmaWnubhksp mellitus without complication (1 source)Hyperglycemia, unspecified; 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: [HYPERGLYCEMIA UNSPECIFIED] Onset: 69-47-1130JdzhjscaDpgjtmk and fatigue (4 sources)Other fatigue; 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: [OTHER FATIGUE]Onset: 87-60-3242Anyjkhqn Menopausal disorders (2 sources)Vaginal dryness; 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: [Menopausal and female climacteric states]91-15-3815DbtkjjzXjou disorders (1 source)Depressive xlvalzgn52-26-8308YlqkkmnTuno disorders (1 source)Mood disorders; 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: [DEPRESSION UNSPECIFIED]Onset: 37-33-5147Bhxoznixjila (1 source)Age-related osteoporosis without current pathological fracture; 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: [AGE-REL OSTEOPOR W/OCURR PATH FX]Onset: 54-87-8709JwlmybsPkwiv aftercare (1 source)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; 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: [SENIOR LIVING CURRENT USE OF ASPIRIN]Onset: 01-72-4732QmznhikdBhdnw aftercare (1 source)Other longterm (current) drug therapy; 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: [OTH SENIOR LIVING CURRENT DRUG THERAPY]Onset: 83-28-4133GjtiwhmtGiztb and unspecified benign neoplasm (5 sources)Benign lipomatous neoplasm of skin and subcutaneous tissue of right leg; 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: [Benign lipomatous neoplasm of skin and/or subcutaneous tissue of right lower limb]Onset: 15-50-4851DbprgxplMbksl and unspecified benign neoplasm (1 source)Lipoma of -00-5854GozmcecxSczua nutritional; endocrine; and metabolic disorders (1 source)Overweight in adulthood with body mass index of 25 or more but less than 3190-03-1885BqyefawuWyaft nutritional; endocrine; and metabolic disorders (1 source)Overweight; 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: [OVERWEIGHT]Onset: 99-50-9226Opkfwxit Residual codes; unclassified (1 source)Acquired absence of both cervix and uterus; 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: [ACQUIRED ABSENCE BOTH CERVIX AND UTERUS]Onset: 07-03-8063DomwggqoCmnjccisftne (3 sources)ACUTE CANDIDIASIS VULVA AND VAGINA; 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: [ACUTE CANDIDIASIS VULVA AND VAGINA]Onset: 06-26-2022 Past or Other Problems Problem ClassificationProblemDateDocumented DateEpisodic/ChronicImmunizations and screening for infectious disease (1 source)Encounter for screening for human papillomavirus (HPV); 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: [ENC SCREENING HUMAN PAPILLOMAVIRUS]Onset: 58-53-9809NffossueDmdhr screening for suspected conditions (not mental disorders or infectious disease) (19 sources)Encounter for screening for malignant neoplasm of rectum; 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: [Encounter for screening for malignant neoplasm of cervix]Onset: 26-01-1001TfxojfgrJdvucrpf codes; unclassified (1 source)Asymptomatic menopausal state; 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: [ASYMPTOMATIC MENOPAUSAL STATE]Onset: 81-65-1872WnrljhjoUadipunepxjp (1 source)ACUTE CANDIDIASIS VULVA AND VAGINA; 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: [ACUTE CANDIDIASIS VULVA AND VAGINA]Onset: 06-25-2022 Results Test NameValueInterpretationReference RangeFacilityIGP,APTIMA HPV,AGE GDLNon 07-53-7055JEU GDLN ACOG TESTINGNote.NOMS HealthcareComment on above:TESTS RESULT FLAG UNITS REF RANGE LAB Clinician Provided Cytology Information Source.............Vagina No. of containers..01 ThinPrep Vial Age Satisho ACJUNIOR Shilpa... FLAG LEGEND: L-Low Normal,H-High Normal,LL-Alert Low,HH-Alert High <-Panic Low,>-Panic High,A-Abnormal,AA-Critical Abnormal Performed at: 01 =[address] [address] Katie Jimenez MD, HPV APTIMANegativeNegativeNOMS HealthcareComment on above:This nucleic acid amplification test detects fourteen high- risk HPV types (16,18,31,33,35,39,45,51,52,56,58,59,66,68) without differentiation. Performed at: =[address] [id number] Call Center Professional: Katie Jimenez MD, Phone: [phone] Performed at: [address] [id number] Call Center Professional: Katie Jimenez MD, Phone: [phone] IGP, APTIMA HPV, RFX 16/18,45Note.NOMS HealthcareComment on above:TESTS RESULT FLAG UNITS REF RANGE LAB DIAGNOSIS: 02 NEGATIVE FOR INTRAEPITHELIAL LESION OR MALIGNANCY. Specimen adequacy: 02 Satisfactory for evaluation. Endocervical component may not be distinguished in cases of atrophy. Performed by: 02 Corby Nails Rn Spine (ASCP) . 02 Note: Note 02 The [...] <-Panic Low,>-Panic High,A-Abnormal,AA-Critical Abnormal Performed at: 02 [facility] [address] [place] [address] Katie Jimeenz MD, SPATULA-ALONE VAGINA CLINISYNCNOMS HealthcareXR DEXA AXIAL SKELETONon 39-23-3366[address] [address] XRay Report Signed Patient: SHILPA OBRIEN MR#: [id number] : 1965 Acct:[id number] Age/Sex: 58 / F ADM Date: 07/11/24 Loc: RAD Attending Dr: Tricia Constantino D.O. Ordering Physician: Tricia Constantino D.O. Date of Service: 07/11/24 Procedure(s): XR DEXA axial skeleton Accession Number(s): [id number] cc: Tricia Constantino D.O.; Horacio San M.D. [address] [address] Patient Name: SHILPA OBRIEN MRN: [id number] date: 1965 Sex: F Assigned Patient Location: [facility] Current Patient Location: Accession/Order Number: [id number] Exam Date: 07/11/2024 07:58 Report Date: 07/12/2024 [...] prevention and treatment of osteoporosis. Osteoporos Int. 2021;33(10):5288-4297. doi: 10.1007/n45440-695-13777-g. Epub 2021Jan 09. Erratum in: Osteoporos Int. 2021Apr 10;: PMID: 98132756; PMCID: [id number]. Electronically authenticated by: LARRY BERKOWITZ Date: 07/12/2024 10:24 Dictated By: Larry Berkowitz M.D. Signed By: 07/12/24 1026 DD/ 1024 TD/TT: Marine Safety Officer:TBHRadiology, Radiologist, - 07/12/2024 [place] [address] XRay Report Signed Patient: SHILPA OBRIEN MR#: [id number] : 1965 Acct:[id number] Age/Sex: 58 / F ADM Date: 07/11/24 Loc: RAD Attending Dr: Tricia Constantino D.O. Ordering Physician: Tricia Constantino D.O. Date of Service: 10/28/24 Procedure(s): XR DEXA axial skeleton Accession Number(s): [id number] cc: Tricia Constantino D.O.; Horacio San M.D. [address] [address] Patient Name: SHILPA OBRIEN MRN: [id number] date: 1965 Sex: F Assigned Patient Location: [facility] Current Patient Location: Accession/Order Number: [id number] Exam Date: 07/11/2024 07:58 Report Date: 07/12/2024 [...] prevention and treatment of osteoporosis. Osteoporos Int. 2021;33(10):9833-8584. doi: 10.1007/p29986-001-22519-x. Epub 2021Jan 09. Erratum in: Osteoporos Int. 2021Apr 10;: PMID: 24141175; PMCID: [id number]. Electronically authenticated by: LARRY BERKOWITZ Date: 07/12/2024 10:24 Dictated By: Larry Berkowitz M.D. Signed By: 07/12/24 1026 DD/ 1024 TD/TT: Marine Safety Officer: NOMAdolfo HealthcareRadiology Study observation (narrative)[facility] HealthcareXR DEXA AXIAL SKELETONOrdered By: Radiologist Radiology on 86-77-4512UHGMWashington University Medical Center Work Phone: mm TOMOSYNTHESIS SCREENING BIon 11-61-77[place], [place] [address] Mammography Report Signed Patient: SHILPA OBRIEN MR#: [id number] : 1965 Acct:[id number] Age/Sex: 58 / F ADM Date: 06/22/24 Loc: MAMMO Attending Dr: Tricia Constantino D.O. Ordering Physician: Tricia Constantino D.O. Results: Date of Service: 06/22/24 Follow Up: Procedure(s): MM tomosynthesis screening BI Accession Number(s): [id number] cc: Tricia Constantino D.O.; Horacio San M.D. Patient Name: SHILPA OBRIEN MR#: [id number] : 1965 Exam Date: 06/22/2024 Ordering Doctor: DR Tricia Constantino . RADIOLOGY REPORT PROCEDURE: MM TOMOSYNTHESIS SCREENING BI COMPARISON: MM TOMOSYNTHESIS SCREENING BI, 06/15/2023. MG MAMM SCREEN 3D MIGUEL CAD, 06/13/2022. MG MAMM SCREEN MIUGEL W CAD, 06/06/2021. MG MAMM MIGUEL SCRN W CAD DIG, 01/27/2013. INDICATIONS: Screening Calculator Name NCI Breast Cancer Risk Assessment Tool 5 Year Breast Cancer Risk 1.20% Lifetime Breast Cancer Risk 8.10% Personal Breast Cancer No Personal Ovarian Cancer No Treatments None Family Cancers None LOCATION: [facility] BREAST COMPOSITION: The breasts are heterogeneously [...] Signed By: 06/22/24 1511 DD/ 1510 TD/TT: Marine Safety Officer:TBHRadiology, Radiologist, - 06/22/2024 [place] [address] Mammography Report Signed Patient: SHILPA OBRIEN MR#: [id number] : 1965 Acct:[id number] Age/Sex: 58 / F ADM Date: 06/22/24 Loc: MAMMO Attending Dr: Tricia Constantino D.O. Ordering Physician: Tricia Constantino D.O. Results: Date of Service: 06/22/24 Follow Up: Procedure(s): MM tomosynthesis screening BI Accession Number(s): [id number] cc: Tricia Constantino D.O.; Horacio San M.D. Patient Name: SHILPA OBRIEN MR#: [id number] : 1965 Exam Date: 06/22/2024 Ordering Doctor: [...] Treatments None Family Cancers None LOCATION: [facility] BREAST COMPOSITION: The breasts are heterogeneously [...] Signed By: 06/22/24 1511 DD/ 1510 TD/TT: Marine Safety Officer: LEMUEL SHATTUCK HOSPITALAdolfo HealthcareRadiology Study observation (narrative)[facility] TOMOSYNTHESIS SCREENING BIOrdered By: Radiologist Radiology on 15-69-4534PIPD DotGT Work Phone: ambulatory Visit Summaryon 68-44-1943Bjeiwyebfg Visit Summary SHILPA OBRIEN :1965 Visit Date:11/26/2022 Ambulatory Visit Instructions Your Care Team Attending Physician - LISBETH TERESA, Eric Candelaria Primary Care Physician - Mena TERESA, Horacio This Is Your Medications List aspirin (aspirin [...] Depression Lipoma of right thigh Umbilical hernia [facility] Office/Clinic Noteon 79-07-3704Ecdnllk Surgery Office/Clinic NoteChief Complaint post operative follow up HPI Staff [...] swallowing difficulties, no hearing loss, no ear infection(s),no nose bleeds. Cardiovascular: normal blood pressure, no [...] 12/21/2020 Recorded SARS-CoV-2 (COVID-19) mRNA-1273 vaccine 11/23/2020 RecordedNoGuernsey Memorial HospitalComment on above:Result Comment: Electronically Signed By: LISBETH TERESA, Eric Fierro\Date and Time Signed: 11/26/22 16:51 EDTPathology Noteon 32-70-6664Wnhzpiiky [id number]#1.00CD:127 [facility] HospitalOperative Reporton 19-99-1417Fhqdmdidx Report [id number]#1.00CD:127[facility] HospitalConsent for Procedure/Surgeryon 71-72-8613Eaezqbd for Procedure/Surgery [id number]#1.00CD:127[facility] HospitalFacesheeton 11-08-7540Vhogmudjf [id number]#1.00CD:127[facility] HospitalAmbulatory Visit Summaryon 25-23-4522Pqwuauxmtb Visit Summary CAMILLE SHILPA Leona :1965 Visit Date:10/28/2022 Ambulatory Visit Instructions Your [...] Tablets By Mouth 2 times a day Contactprescribing physician if questions or concerns Unchanged multivitamin (Multi Vitamins oral tablet) 1 Tablets By Mouth Every day Contact prescribing physician if questions or concerns Allergies penicillin (Itching) Problems Ongoing - Any problem that you are currently receiving treatment for. Anxiety BMI 26.0-26.9,adult Depression Lipoma of right thigh Umbilical hernia [facility] HospitalPhysician Referralon 10-17-2022 Physician [id number]#1.00CD:127Normal [facility] Medical CenterINSULINon 43-20-9170Ufrhras9.7 uIU/mLNormal2.6-24.9 The [facility] HospitalComment on above:Performed By: #### INSULIN #### [facility] [address] [address] [address] Jay CortesOCC BLD IMMUNO SCREENon 43-90-7952HHQJUQ BLOODNegativeNormal NEGATIVEThe [facility] Bucyrus HospitalComment on above:Performed By: #### OBSCRN ####[facility] [address] [address]Dr. Jay CortesCBC AUTO DIFFon 09-10-6497ZCGU #0.0 103/ulNormal0.0-0.1The [facility] HospitalComment on above:Performed By: #### CBC ####[facility] [address] [address]Dr.aJy CortesBasophils/100 WBC (Bld)1.0 %Normal0.2-2.0The [facility] HospitalComment on above:Performed By: #### CBC ####[facility] [address] [address]Dr.Jay ChangEO #0.1 103/ulNormal0.0-0.7The [facility] HospitalComaspirus ontonagon hospital on above:Performed By: #### CBC ####[facility] [address] [address]Dr.Jay ChangEosinophils/100 WBC (Bld)2.3 %Normal 0.9-7.0The [facility] HospitalComment on above:Performed By: #### CBC ####[facility] [address] [place], [place] [address]DrGriselda Cortes Erythrocyte distribution width (RBC) [Ratio]12.7 %Tgkefy18.0-15.0The [facility] HospitalComment on above:Performed By: #### CBC ####[facility] [address] [place], [place] [address]DrGriselda CoretsHematocrit (Bld) [Volume fraction]39.9 %Ekofbj94.0-48.0The [facility] HospitalComment on above:Performed By: #### CBC ####[facility] [address] [address]Dr.Jay CortesHemoglobin (Bld) [Mass/Vol]13.6 g/dL Ztpenz70.0-16.0The [facility]igold HospitalComment on above:Performed By: #### CBC ####[facility] K[address] [place], [place] [address]Dr. Jay CortesIG #0.01 10e3/ulNormal0.00-0.03The [facility] HospitalComment on above: Performed By: #### CBC ####[facility] I[address] [place], [place] [address]Dr.Conniesabas CortesIG %0.3 %Normal0.0-0.5The [facility] HospitalComment on above:Performed By: #### CBC ####[facility] N[address]qrsamst[address] [place], [place] [address]Dr.Jay ChangLYMPH #1.4 103/ulNormal1.2-3.8The [facility] HospitalComment on above:Performed By: #### CBC ####[facility] Exdpvadpvt[address] [place], [place] [address]Dr. Conniesabas SebastianLymphocytes/100 WBC (Bld)34.3 %Wthmep34.5-60.0The [facility] Comment on above:Performed By: #### CBC ####[facility] Yr[address] [place], [place] [address]Dr.Jay CortesMANUAL DIFF REQNONormalThe [facility] HospitalComment on above:Performed By: #### CBC ####[facility] Kkv[address]ocguj[address] [place], [place] [address]Dr.Jay CortesWOODHULL MEDICAL [facility] (RBC) [Entitic mass]30.6 tfDolkuy90.7-34.0The [facility] HospitalComment on above: Performed By: #### CBC ####[facility] D[address]wehormwh[address] [place], [place] [address]Dr.Jay CortesCLAXTON-HEPBURN [facility]ICAL [facility] (RBC) [Mass/Vol]34.1 g/dLNormal 29.9-35.2The [facility] HospitalComment on above:Performed By: #### CBC ####[facility] V[address]triy[address] [place], [place] [address]Dr. Jay CortesMCV (RBC) [Entitic vol]89.7 lKEopiyf78.0-99.0The [facility] Comment on above:Performed By: #### CBC ####[facility] Sztxjbnsuc[address] [place], [place] [address]Dr.Jay CortesMONO #0.3 103/ulNormal0.3-0.8 The [facility] HospitalComment on above:Performed By: #### CBC ####[facility] Lfwpqotcmj[address] [place], [place] [address]Dr.Jay Cortes Monocytes/100 WBC (Bld)6.3 %Normal1.7-12.0The [facility] HospitalComment on above: Performed By: #### CBC ####[facility] Axdmrwxzau[address] [place], [place] [address]Dr.Jay CortesNEUT #2.2 103/ulNormal1.4-6.5The [facility] HospitalComment on above:Performed By: #### CBC ####[facility] [address]mzszw[address] [place], [place] [address]Dr.Jay CortesNeutrophils/100 WBC (Bld)55.8 %Qmsysg74.0-75.0The [facility] HospitalComment on above:Performed By: #### CBC ####[facility] W[address]rmqlslr[address] [place], [place] [address]Dr.Jay CortesPlatelet mean volume (Bld) [Entitic vol]10.0 fLNormal9.5-13.5 The [facility] HospitalComment on above:Performed By: #### CBC ####[facility] [address]wftnq[address] [place], [place] [address]Dr.Jay KqlfvQPU737 103/gcBbebjt974-253Utv [facility] HospitalComment on above:Performed By: #### CBC ####[facility] [address]jnze[address] [place], [place] [address]Dr. Jay CortesRBC4.45 106/ulNormal4.20-5.40The [facility] HospitalComment on above: Performed By: #### CBC ####[facility] [address] [address]Dr.Yilan CortesWBC4.0 103/ulNormal4.0-11.0The [facility] HospitalComment on above:Performed By: #### CBC ####[facility] [address] [address]Dr.Yilan CortesFRHAN THYROXINE INDEX T7on 02-04-8531XTK1.61Kqgglo3.30-4.50The [facility] HospitalComaspirus ontonagon hospital on above:Performed By: #### CMP, LIPID, TSH, T7 #### [facility] [address] [address] [address] Jay CortesT3U35.0 %Dofwnr03.0-39.0The [facility] HospitalComment on above: Performed By: #### CMP, LIPID, TSH, T7 #### [facility] [address] [address] [address] Jay CortesT4 [Mass/Vol]7.10 ug/dLNormal4.80-13.90The [facility] Comment on above:Performed By: #### CMP, LIPID, TSH, T7 #### [facility] [address] [address] [address] Jay CortesGLYCOHEMOGLOBIN A1Con 21-49-4279LMF RECOMMENDATIONSEE BELOWNormal The [facility] HospitalComment on above:Result Comment: ADA RECOMMENDED LIMIT 4.0 - 6.0 ADA THERAPEUTIC TARGET < 7.0 ACTION SUGGESTED > 7.0Performed By: #### A1C #### [facility] [address] [address] [address] Jay CortesGlucose [Mass/Vol]105 mg/dLNormalThe [facility] HospitalComaspirus ontonagon hospital on above:Performed By: #### A1C #### [facility] [address] [address] [address] Jay CortesHbA1c (Bld) [Mass fraction]5.3 %Normal4.5-6.2The [facility] HospitalComment on above:Performed By: #### A1C #### [facility] [address] [address] [address] Jay Lau 74-94-5164Kkfc [Mass/Vol]90.0 ug/mSBecqwm78.0-170.0The [facility] HospitalComment on above:Performed By: #### IRON ####[facility] [address] [address]Dr. Jay CortesLIPID PROFILE on 81-59-5677JCMF-HDL RATIO NORMSEE BELOWUniversity Hospitals St. John Medical CenterComment on above:Result Comment: 3.3 - 4.4 LOW RISK 4.4 - 7.1 AVERAGE RISK 7.1 - 11.0 MODERATE RISK >11.0 HIGH RISKPerformed By: #### CMP, LIPID, TSH, T7 #### [facility] [address] [address] [address] Jay Garciaesterol [Mass/Vol]175 mg/dLNormal<=200The [facility] Comment on above:Performed By: #### CMP, LIPID, TSH, T7 #### [facility] [address] [address] [address] Jay Garciaesterol in HDL [Mass/Vol]72 mg/dLCritically vjxy84-00Qrb [facility] HospitalComment on above:Performed By: #### CMP, LIPID, TSH, T7 #### [facility] [address] [address] [address] Jay Styles in LDL [Mass/Vol]88.0 mg/dLNoBrecksville VA / Crille HospitalComment on above:Performed By: #### CMP, LIPID, TSH, T7 #### [facility] [address] [address] [address] Jay Styles.total/Cholesterol in HDL [Mass ratio]2.4 {ratio} NormalThe [facility] HospitalComment on above:Performed By: #### CMP, LIPID, TSH, T7 #### [facility] [address] [place] [address] Dr. Jay Tejada NORMAL> or = 60 mg/dl - LOW CARDIOVASCULAR RISK <40 mg/dl - HIGH CARDIOVASCULAR RISKUniversity Hospitals St. John Medical CenterComment on above:Performed By: #### CMP, LIPID, TSH, T7 #### [facility] [address] [address] [address] Jay Bojorquez CALC NORMALSEE BELOWUniversity Hospitals St. John Medical CenterComment on above:Result Comment: <100 mg/dl OPTIMAL 100 - 129 mg/dl NEAR OR ABOVE OPTIMAL 130 - 159 mg/dl BORDERLINE HIGH 160 - 189 mg/dl HIGH >190 mg/dl VERY HIGH Performed By: #### CMP, LIPID, TSH, T7 #### [facility] [address] [place] [address] Dr. Jay CortesTriglyceride [Mass/Vol]75 mg/dLNormal<=150The [facility] Comment on above:Performed By: #### CMP, LIPID, TSH, T7 #### [facility] [address] [place] [address] Dr. Jay Garcia CALC15.0 mg/dLNoBrecksville VA / Crille HospitalComment on above: Performed By: #### CMP, LIPID, TSH, T7 #### [facility] [address] [place] [address] Dr. Jay Knutson 14(COMP METB)on 90-82-7952Rjbasyd [Mass/Vol]4.1 g/dLNormal 3.4-5.0The [facility] HospitalComment on above:Performed By: #### CMP, LIPID, TSH, T7 #### [facility] [address] [place] [address] Dr. Jay CortesAlbumin/Globulin [Mass ratio]1.2 {ratio}NormalThe [facility] HospitalComment on above:Performed By: #### CMP, LIPID, TSH, T7 #### [facility] [address] [place] [address] Dr. Jay Crane [Catalytic activity/Vol]51 U/PYshcln51-177Jdv [facility] HospitalComment on above:Performed By: #### CMP, LIPID, TSH, T7 #### [facility] [address] [address] [address] Jay PruittT [Catalytic activity/Vol]23 U/PAjmleb02-15Bsz [facility] HospitalComment on above:Performed By: #### CMP, LIPID, TSH, T7 #### [facility] [address] [address] [address] Jay Webb gap [Moles/Vol]11.4 mmol/LNormalThe [facility] Comment on above:Performed By: #### CMP, LIPID, TSH, T7 #### [facility] [address] [address] [address] Jay CortesAST [Catalytic activity/Vol]12 U/LCritically iys74-94Dos [facility] HospitalComment on above:Performed By: #### CMP, LIPID, TSH, T7 #### [facility] [address] [place] [address] Dr. Jay CortesBilirubin [Mass/Vol]0.3 mg/dLNormal0.2-1.0The [facility] Comment on above:Performed By: #### CMP, LIPID, TSH, T7 #### [facility] [address] [address] [address] Jay CortesCalcium [Mass/Vol]8.9 mg/dLNormal8.5-10.1[facility] Comment on above:Performed By: #### CMP, LIPID, TSH, T7 #### [facility] [address] [address] [address] Jay CortesChloride [Moles/Vol]104 mmol/XXxevxd20-253Fbo [facility] Comment on above:Performed By: #### CMP, LIPID, TSH, T7 #### [facility] [address] [address] [address] Jay CortesCO2 [Moles/Vol]29.5 mmol/FUxmgsn71.0-32.0The [facility] Comment on above:Performed By: #### CMP, LIPID, TSH, T7 #### [facility] [address] [address] [address] Jay CortesCreatinine [Mass/Vol]0.60 mg/dLNormal0.55-1.02[facility] ToledoComment on above:Performed By: #### CMP, LIPID, TSH, T7 #### [facility] [address] [place] [address] Dr. Jay Starks-AF SCOTTISH>60Normal>=60The [facility] HospitalComment on above:Performed By: #### CMP, LIPID, TSH, T7 #### [facility] [address] [place] [address] Dr. Jay FloresGFR-NON AF SCOTTISH>60Normal>=60The [facility] HospitalComment on above:Performed By: #### CMP, LIPID, TSH, T7 #### [facility] [address] [place] [address] Dr. Jay CortesGlobulin (S) [Mass/Vol]3.3 g/dLNormalThe [facility] HospitalComment on above:Performed By: #### CMP, LIPID, TSH, T7 #### [facility] [address] [place] [address] Dr. Jay CortesGlucose [Mass/Vol]103 mg/bMWqbxzx53-453NolRegency Hospital [place] Comment on above:Performed By: #### CMP, LIPID, TSH, T7 #### [facility] [address] [place] [address] Dr. Jay CortesPotassium [Moles/Vol]3.9 mmol/LNormal3.5-5.1[facility] Comment on above:Performed By: #### CMP, LIPID, TSH, T7 #### [facility] [address] [place] [address] Dr. Jay CortesProtein [Mass/Vol]7.4 g/dLNormal6.4-8.2[facility] Comment on above:Performed By: #### CMP, LIPID, TSH, T7 #### [facility] [address] [place] [address] Dr. Jay CortesSodium [Moles/Vol]141 mmol/HKmzyrl052-509IupRegency Hospital [facility] Comment on above:Performed By: #### CMP, LIPID, TSH, T7 #### [facility] [address] [address] [address] Jay Vazquez nitrogen [Mass/Vol]15.0 mg/dLNormal7.0-18.0The [facility] HospitalComment on above:Performed By: #### CMP, LIPID, TSH, T7 #### [facility] [address] [place] [address] Dr. Jay Vazquez nitrogen/Creatinine [Mass ratio]25.0 mg/mgNormalThe [facility] HospitalComment on above:Performed By: #### CMP, LIPID, TSH, T7 #### [facility] [address] [place] [address] Dr. Jay Serrano 54-72-1221BQE3.941 uIU/mLNormal0.358-3.740Reg[facility] Hospital ToledoComment on above:Performed By: #### CMP, LIPID, TSH, T7 #### [facility] [address] [place] [address] Dr. Jay CortesVAGINITIS/VAGINOSIS DNA PROBEon 53-63-1568Vqywuvu speciesNegative NormalNegativeRegency Hospital ToledoComment on above:Performed By: #### VAGINT #### [facility] [address] [place] [address] Dr. Jay Chowdhuryllgetachew vaginalisNegativeCollege PointNegSelect Medical Specialty Hospital [facility] Comment on above:Performed By: #### VAGINT #### [facility] [address] [place] [address] Dr. Jay Villasenoronas vaginalisNegativeNormalNegativeRegency Hospital [facility] Comment on above:Performed By: #### VAGINT #### [facility] [address] [place] [address] Dr. Jay Dixon ACOG PANEL 2: 30 to 65on 06-22-2022..NormalRegency Hospital ToledoComment on above:Result Comment: Performed at: WBPerformed By: #### [id number] ####[facility] [address] [address]. Jay Venegas Gdln ACOG Tipyrsf04-65CnihwpErlBrecksville VA / Crille HospitalComment on above:Performed By: #### [id number] ####[facility] [address] [place], [place] [address]Dr. Jay CortesDIAGNOSIS:CommentTrinity Health System West Campus on above:Result Comment: NEGATIVE FOR INTRAEPITHELIAL LESION OR MALIGNANCY. Performed at: WBPerformed By: #### [id number] ####[facility] [address] [place], [place] [address]Dr. Jay CortesHPV AptimaNegativeNormal NegativeThe [facility] on above:Result Comment: This nucleic acid amplification test detects fourteen high-risk HPV types (16,18,31,33,35,39,45,51,52,56,58,59,66,68) without differentiation. Performed at: =GPerformed By: #### [id number] ####[address] [address]Dr. Jay CortesMethodology:CommentTrinity Health System West Campus on above:Result Comment: This liquid based ThinPrep(R) pap test was screened with the use of an image guided system. Performed at: WBPerformed By: #### [id number] ####[address] [address]Dr. Jay CortesNote:CommentTrinity Health System West Campus on above:Result Comment: The Pap smear is a screening test designed to aid in the detection of premalignant and malignant conditions of the uterine cervix. It is not a diagnostic procedure and should not be used as the sole means of detecting cervical cancer. Both false-positive and false-negative reports do occur. . Performed at: WBPerformed By: #### [id number] ####[facility] [address] [place], [place] [address]Dr. Jay CortesPerformed by:CommentTrinity Health System West Campus on above:Result Comment: Oly Tubbs, Rn Spine (ASCP) Performed at: WBPerformed By: #### [id number] ####[facility] [address] [place], [place] [id number]. Jay CortesSpecimen adequacy:Comment NormalThe [facility] HospitalComment on above:Result Comment: Satisfactory for evaluation. No endocervical cells are present. This is consistent with a history of hysterectomy. Performed at: WBPerformed By: #### [id number] ####[facility] [address] [place], [place] [address]Ko. Jay ChangMG MAMM SCREEN 3D MIGUEL CADon 52-04-2603BX MAMM SCREEN 3D MIGUEL CADPatient: SHILPA OBRIEN Exam Date: 06/13/2022 : 1965 Gender:F Ordering : DR TRICIA CONSTANTINO . Admission #: [id number] Family : Order #: [id number] CLICK HERE TO VIEW EXAM RADIOLOGY REPORT [...] Treatments None Family Cancers None LOCATION: The [facility] BREAST COMPOSITION: Heterogeneously dense,which may obscure [...] by: Barbara Martinez MD on 06/13/2022 at 09:10[facility] CenterXR DEXA BONE DENSITYon 55-73-5878SJ DEXA BONE DENSITYDEXA Bone Density Study CLINICAL: Evaluate bone mineral density. Postmenopausal COMPARISON: 06/11/2020 FINDINGS: The bone density study was assessed by dual-energy x-ray absorptiometry with the The ADEX scanner. The test results are expressed in [...] Electronically authenticated by: BARBARA ATKINS Date: 2022-06-13 08:30[facility] Vital Signs Date TimeVital SignValuePerforming BfafwxeyzRozknyjb14-26-0530 14:27-0400Body .2 cmCorey Vira DO Work Phone: [facility] CenterHhbhynpiph48-71-5679 14:27-0400Body mass index (BMI) [Ratio]23.15 kg/m4Dezeb Vira DO Work Phone: [phone] [place], [place] [address]Dvbuqnldpw18-93-4995 14:27040Body .04 kgCorey Vira DO Work Phone: [phone]-[facility] CenterJkwdjmxldb33-04-1149 14:27-0400Diastolic blood zqumyhll15 mm[Hg]Tricia Vira DO Work Phone: [phone] CenterRzahfdnbbz41-66-3380 14:27-0400Systolic blood uipjvhvg089 mm[Hg]Tricia Vira DO Work Phone: [facility] CenterDnyojqdlcg58-86-8975 15:02-0500Blood Pressure LocationMichael NILL [facility]02-14-2023 15:02-0500Diastolic blood howbyplv33 mm[Hg]Eric NILL [facility]02-14-2023 15:02-0500Heart rate 70 /minMichael NILL [facility]02-14-2023 15:02-0500 Respiratory rate16 /minMichael NILL [facility]02-14-2023 15:02-0500Systolic blood qixysgbn943 mm[Hg]Eric NILL [facility] Encounters Encounter DateEncounter TypeCare ProviderFacilityStart: 07-12-2024 End: 62-86-4861Zqtuzyacd Result EncounterCorey Vira DO Work Phone: noms External Department UnsolicitedStart: 07-12-2024 End: 13-07-6759Fenmnysdc Result EncounterCorey Vira DO Work Phone: noms External Department UnsolicitedStart: 07-05-2024 End: 16-34-3172Elocpy flowsheetCorey Vira DO Work Phone: noms BCP OBStart: 07-05-2024 End: 78-46-7371Ifozdj flowsheetCorey Vira DO Work Phone: noms BCP OBStart: 07-05-2024 End: 58-55-8055Ynnhfmayx Result EncounterCorey Vira DO Work Phone: noms External Department UnsolicitedStart: 07-05-2024 End: 06-72-9251Vxdxeox encounter procedureCorey Vira DO Work Phone: [facility] HealthcareStart: 07-05-2024 End: 12-15-5881Fiyudhv encounter statusCorey Vira DO Work Phone: noms HealthcareStart: 07-05-2024 End: 23-68-6543Ypdzxyhh preventive med est patient 40-64yrsCorey Vira DO Work Phone: [facility] OBComment on above:Well woman exam with routine gynecological exam; Preventative health care; Encounter for screening mammogram for malignant neoplasm of breast; Surgical menopause; Vaginal dryness, menopausalStart: 06-22-2024 End: 99-13-4242Ucezfccun Result EncounterCorey Vira DO Work Phone: noms External Department UnsolicitedStart: 06-22-2024 End: 98-57-5810Gnysufoan Result EncounterCorey Vira DO Work Phone: noms External Department UnsolicitedStart: 11-26-2022 End: 81-21-1757vbwzyiuvziPjhcwcl R NILLFacility:KAR BellevueStart: 11-19-2022 End: 90-12-5270kliumokoaqDI ERIC NILL .Facility:Q5Csykw: 10-28-2022 End: 42-11-3618fkfwgzkfhiMtfgqxk R NILLFacility:KAR SharmaevueStart: 10-28-2022 End: 15-28-0218Clsqqve encounter procedureMichael R NILL General Surgery Nill/Said [place] Start: 10-14-2022 End: 79-96-3767fslffvcmkfQQ HORACIO HOY .Facility:D6Zhzur: 10-13-2022 End: 24-73-3649dhiewmubbpKP HORACIO HOY .Facility:N9Ujvuw: 06-25-2022 End: 75-78-5334eopiqooyrhHU TRICIA VIRA .Facility:F4Wlinm: 06-16-2022 End: 79-24-3458apivnishyhIJ TRICIA VIRA .Facility:L1Xswhf: 06-13-2022 End: 77-05-0480uygnleexbhTH TRICIA VIRA .Facility: Procedures DateProcedureProcedure DetailPerforming ClinicianStart: 26-88-4146US DEXA AXIAL SKELETONCorey Vira DO Work Phone: Start: 64-31-6895IXL,APTIMA HPV,AGE GDLNCorey Vira DO Work Phone: Start: 41-11-5474TX TOMOSYNTHESIS SCREENING BICorey Vira DO Work Phone: Start: 03-36-2059MlteqqcwqpfVwmfv Vira DO Work Phone: Start: 50-66-5844Aorjikxwbxv observation [Identifier] in Cervix by Cyto stainCorey Vira DO Work Phone: abdominal hysterectomyMichael NILL ColonoscopyMichael NILL Repair of umbilical herniaMichael NILL Tonsillectomy and adenoidectomyMichael NILL Plan of Treatment DateCare ActivityDetailAuthorStart: 78-60-4735Sexwlsooo for malignant neoplasm of cervixNOMS HealthcareStart: 07-31-2025 End: 70-57-7625Drukczp encounter zsyomqjjw98/17/2025 8:30 AM EST Procedure Visit NOMAdolfo ALVARENGAN [address] [place] [address] Ping Sagastume, WASTE MANAGEMENT ENGINEER [address] [place] [phone] NOMAdolfo [place] OBGYNStart: 07-13-2025 End: 61-18-2606Xitmrfb encounter bivdrtnig19/30/2025 8:30 AM EDT Office Visit NOMAdolfo VÁSQUEZ OB [address] [place] [address] Tricia Constantino, [address] [place], [place] [id number] [facility] BCP OBStart: 56-13-7825Obkwpdqty for malignant neoplasm of breastMammogramNOMS HealthcareStart: 07-05-2024 End: 44-39-1568KKN Skeletal system Views for bone densityDEXA bone density Imaging Routine Well woman exam with routine gynecological exam Preventative health care Surgical menopause Expected: 07/05/2024 (Approximate), Expires: 07/05/2025NOCT HealthcareComment on above:Expected: 07/05/2024 (Approximate), Expires: 07/05/2025Start: 07-05-2024 End: 73-62-0387RV Breast - bilateral ScreeningBilateral screening mammogram Imaging Routine Well woman exam with routine gynecological exam Preventative health care Encounter for screening mammogram for malignant neoplasm of breast Expected: 07/05/2024, Expires: 09/04/2025[facility] Healthcare Work Phone: comment on above:Expected: 07/05/2024, Expires: 09/04/2025Start: 07-05-2024 End: 08-93-7586Zjmhrdd encounter wdpsymlzb25/22/2024 2:00 PM EDT Office Visit [facility] [address] [address] ViraTricia ritter, DO [address] [place] [address] ArrivedNOCALIFORNIA HOSPITAL MEDICAL [facility]ENTER OBComment on above:ArrivedStart: 46-95-7127Hpinyzmqx vaccinationInfluenza Vaccine (#1)N[facility] HealthcareStart: 93-86-4462Bspjhpybn for malignant neoplasm of colonNOCT HealthcareTHIN PREP TIS PAP AND HR HPV DNATHIN PREP TIS PAP AND HR HPV DNA Pathology and Cytology Routine Well woman exam with routine gynecological exam Ordered: 07/05/2024NOCT HealthcareComment on above:Ordered: 07/05/2024 Immunizations Immunization DateImmunizationNotesCare WjluirbgExcghmsh18-76-0612itlkoqjlb virus vaccine, unspecified formulationCorey Vira DO Work Phone: NOCT Ptywsovata79-60-4141ycbgakqeh virus vaccine, unspecified formulationMichael NILL General Surgery Mzaijxpo70-65-6675YMSB-ZmN-4 (COVID-19) mRNA-1273 vaccineMichael NILL [facility] HospitalueComment on above:Result Comment: 2022-10-22: ZGF8868-69-7025JEDL-GiD-7 (COVID-19) mRNA-1273 vaccine Eric NILL General Surgery Ychsvnxu32-33-6959LWRD-CnQ-7 (COVID-19) mRNA-1273 vaccineMichael NILL [facility] [place] Payers DatePayer CategoryPayerPolicy [id number] Health InsuranceMEDICAL MUTUAL [id number] 2.0.1.188291.3.57[id number] 2.0.1.751325.3.57[id number] 2.0.1.654214.3.57[id number] 2.0.1.284063.3.57[id number] 2.0.1.302763.3.57[id number] 2..1.637868.3.57[id number] 2..1.896245.3.57[id number] 2..1.883511.3.57[id number] 2..1.234267.3.579.2.[id number] Social History DateTypeDetailFacilityStart: 01-40-3766Lkvvyrv smoking statusNever smoked tobacco (finding)[facility] BellevueStart: 91-01-6924Ltqbuis smoking status NeverGeneral Surgery BellevueSex Assigned At BirthFeLutheran HospitalTobacco smoking status NHISTobacco smoking consumption unknownUINTAH [facility] HealthcareStart: 18-88-1053Oec assigned at birthFeReading HospitalStart: 60-61-1504Kknwvo identityIdentifies as female gender (finding)[facility] Healthcare Start: 47-75-9190Tuexfr orientationHeterosexual (finding)[facility] Functional Status GsnuCbwdvkrikuBhybwsOvgqphry97-73-7437Hrwxcwnzkh StatusN/AGeneral Surgery [place] Note 07-12-2024 Note Date & SumqGyqgKtkigubs82-51-3589 Miscellaneous Notes* Result Encounter Note - Trisha Garibay LPN - 07/12/2024 10:28 AM EDT Verified with pt that she is taking both meds and she is. documented in this encounterWashington [facility] Center Progress note 07-12-2024 Note Date & IadsYednSqocdfmt02-55-7127 Progress note* Result Encounter Note - Trisha Garibay LPN - 07/12/2024 10:28 AM EDT Verified with pt that she is taking both meds and she is. [facility] Healthcare Work Phone: History of Present illness Narrative 07-05-2024 Note Date & MokiEvqtHupeufwj04-11-9893 History of Present illness Narrative* Selina Tenorio LPN - 07/05/2024 2:00 PM EDT Reason for Appointment: Patient ID: Arianna Obrien [...] nursing note reviewed. Exam conducted with a material expediter present. Vitals: Estimated body mass index is [...] of: Tricia Constantino DO documented in this encounterWashington [facility] Medical Center Clinical Note 11-19-2022 Note Date & SlbsBgipDxlmnkdw62-44-3077 NoteOPERATIVE NOTE OPERATION DATE: 11/19/2022 PREOPERATIVE DIAGNOSIS: Enlarging [...] Less than 2 mL. CC: Horacio San M.D.[facility] Clinical Note 10-28-2022 Note Date & IbchZaaeRnosxowo85-77-4340 NoteChief Complaint consultation for thigh lipoma [facility] Staff 57 year old female presents on [...] swallowing difficulties, no hearing loss, no ear infection(s),no nose bleeds. Cardiovascular: normal blood pressure, no [...] no murmur, normal bilateral carotid pulses without bruits,abd aorta without dilatation or bruit, femoral arteries intact, no pedal edema or varicosities. Musculoskeletal: normal gait, digits and nails without infection, nodes, cyanosis, clubbing. Skin: no rashes, no lesions, no ulcers, right anterio-lateral proximal thigh with 3 cm subcutnaeousnodule, soft, no skin changes. Psychiatric/Neuro: oriented to [...] plan excisional biopsy under local anesthesia at [facility], informed consent obtained. Follow-up No qualifying [...] 12/21/2020 Recorded SARS-CoV-2 (COVID-19) mRNA-1273 vaccine 11/23/[address] John Medical CenterComment on above:Result Comment: Electronically Signed By: LISBETH TERESA, Eric Fierro\Date and Time Signed: 10/28/22 15:34 EST Evaluation + Plan note Note Date & TypeNoteFacilityEvaluation + Plan note No data available for this section General Surgery [place] Evaluation note Note Date & TypeNoteFacilityEvaluation note* Diagnosis Well woman exam with routine gynecological exam Routine gynecological examination Preventative health care Routine general medical examination at a health care facility Encounter for screening mammogram for malignant neoplasm of breast Surgical menopause Vaginal dryness, menopausal documented in this encounter [facility] Discharge instructions Note Date & TypeNoteFacilityHospital Discharge instructions No data available for this section [facility] [place] Progress note Note Date & TypeNoteFacilityProgress note No data available for this section [facility] [place] Summary Purpose Family History No Family History Records FoundNo Family History Records Found Advance Directives No Advanced Directives Records FoundNo Advanced Directives Records Found Additional Source Comments Patient Care team informatio n (unrecognized section and content) Team MemberRelationshipSpecialtyStart DateEnd Horacio San MD [address] [place] [address] PCP - GeneralFamily Iuekeeuu20/9/23Team MemberRelationshipSpecialtyStart DateEnd Horacio San MD [address] [place] [facility] [address] PCP - GeneralFami Vnwazwnc90/9/23Te MemberRelationshipSpecialtyStart DateEnd Date Horacio San MD [address] [place] [facility] [address] PCP - [facility]06/22/23Te MemberRelationshipSpecialtyStart DateEnd Date Horacio San MD [address] [place] [facility] [address] PCP - [facility]06/22/23Te MemberRelationshipSpecialtyStart DateEnd Date Horacio San MD [address] [place] [facility] [address] PCP - [facility]23 INFORMATION SOURCE (unrecogn ized section and content) DATE CREATED AUTHOR 12/05/2022 [facility] DATE CREATED AUTHOR AUTHOR'S ORGANIZ ATION 12/14/[address] [facility] Reason for Visit (unrecogniz ed section and content) ReasonCommentsGynecologic Exam FOR RECORDS PERTAINING TO PATIENTS WHO [...] BE BASED ON THE PRIMARY CLINICAL RECORDS. [facility] [employer] [facility]. provides no warranty or guarantee of the accuracy or completeness of information in this document.
[2025-08-02 11:08] LABS: Age Gdln ACOG Testing Note (.); IGP, Aptima HPV, rfx 16/18,45 Note (.)
== END 2025-07-31 14:37 | disposition home or self-care (01) ==
LOC: LAB 14:36
PROVIDERS: PCP Family Medicine; Visit Provider Nurse Practitioner Family
DX: Z01.419 Encounter for gynecological examination (general) (routine) without abnormal findings (principal)
CPT/HCPCS: 87624; 88175